=== PATIENT | male | born 1955 | race African-American/Black ===

== ENCOUNTER 2018-02-02 19:38 | Inpatient (IN) | payer OTHER, SELFPAY ==
[2018-02-02] MEDS ORDERED: Ondansetron PF 4 MG/2 ML Vial ONE (20:33)
[2018-02-02 20:49] LABS: Troponin I Less than 0.010 ng/mL (< 0.028)
[2018-02-02 20:53] LABS: CKMB 10.6 ng/mL (0-6.6)
[2018-02-02 20:58] LABS: #Basophils 0.1 thou/uL (0.0-0.2); #Eosinphils 0.1 thou/uL (0.0-0.7); #Lymphocytes 0.9 thou/uL (1.20-3.40); #Monocytes 0.6 thou/uL (0.11-0.59); #Neutrophils 9.9 thou/uL (1.40-6.50); %Basophils 0.4 % (0.0-1.0); %Eosinophils 0.8 % (0.0-10.0); %Lymphocytes 7.6 % (21.0-51.0); %Neutrophils 86.2 % (42.0-75.0); Hemoglobin 15.8 g/dL (14.0-18.0); Mean Corpuscular HGB CONC 33.1 g/dL (32.0-36.0); Mean Corpuscular Hemoglobin 33.6 pg (27.0-31.0); Mean Platelet Volume 7.4 fL (7.4-10.4); Platelet Count 260 thou/uL (130-400); RBC Distribution Width 11.7 % (11.5-14.5); Red Blood Cell (RBC) Count 4.69 mill/uL (4.70-6.10); White Blood Cell (WBC) Count 11.5 thou/uL (4.8-10.8)
--- NOTE | 2018-02-02 21:01 | CT ---
HEAD CT WITHOUT CONTRAST 02/02/18 HISTORY: Left sided hemiparesis, evaluate for stroke. TECHNIQUE: Axial CT imaging at 5 mm intervals from vertex through skull base without contrast. FINDINGS: There is prominent hypodensity throughout the right MCA territory with loss of beckford-white differentia tion consistent with a completed infarction of the right MCA territory. No associated hemorrhage. The re is right to left midline shift of 7 mm at the level of the septum pellucidum. There is an old infa rction involving the posterior inferior aspect of the left cerebellar hemisphere. There is polypoid mucosal thickening within the alveolar recess of the right maxillary sinus. Imaged paranasal sinuses/mastoid air cells otherwise unremarkable. No acute osseous abnormality. IMPRESSION: Large acute infarction of right MCA territory with right to left midline shift of [address] Sawyer made aware at 7:50 p.m., 02/02/18. Code CR POS: [facility]
[2018-02-02 21:05] LABS: INR-International Normal Ratio 1.4; PTT 28.8 SEC (22.9-36.1); Prothrombin Time 16.9 SEC (12.0-14.7)
--- NOTE | 2018-02-02 21:10 | RAD ---
PORTABLE SUPINE FRONTAL CHEST RADIOGRAPH: 02/02/18 COMPARISON: 07/06/13. HISTORY: Slurred speech and left sided weakness, acute infarction. FINDINGS: Supine imaging provided limiting assessment for pneumothorax and pleural fluid. Heart and mediastinal contours are stable. Lungs appear clear. IMPRESSION: No acute findings. POS: [facility]
[2018-02-02 21:15] LABS: CK (CPK) 2395 U/L (30-200); Lipase 4 U/L (8-78)
[2018-02-02 22:04] LABS: Albumin 3.8 g/dL (3.4-4.8); Bilirubin, Total 1.4 mg/dL (0.2-1.2); Carbon Dioxide 22 mmol/L (23-31); Chloride 104 mmol/L (98-107); Globulin 2.8 g/dL (2.4-3.5); Glucose 89 mg/dL (80-115); Potassium 4.8 mmol/L (3.5-5.1); Protein, Total 6.6 g/dL (5.8-8.1); Sodium 138 mmol/L (136-145)
[2018-02-02 22:05] LABS: ALT (SGPT) 29 U/L (8-55); AST (SGOT) 66 U/L (5-34); Acetaminophen Less than 6.0 mcg/mL (10.0-30.0); Alcohol Less than 10 mg/dL (Less than 10); Alkaline Phosphatase 72 U/L (40-150); BUN (Urea Nitrogen) 17 mg/dL (8.4-25.7); Calc. Creatinine Clearance 0 mL/min (70-130); Estimated GFR-MDRD 87; Salicylate Less than 8.0 mg/dL (15.0-30.0)
[2018-02-02 22:06] LABS: Anion Gap 17 mmol/L (10-20)
[2018-02-02] MEDS ORDERED: Promethazine HCl 25 MG/ML VIAL ONE (22:13)
[2018-02-02] MEDS ORDERED: Ondansetron ODT 4 MG TAB SL PRN (23:26)
[2018-02-02] MEDS ORDERED: Ondansetron PF 4 MG/2 ML Vial IVP PRN (23:26)
[2018-02-02] MEDS ORDERED: hydrALAZINE 20 MG/ML VIAL SLOW IVP PRN (23:29)
[2018-02-02] MEDS ORDERED: Bisacodyl 5 MG TAB PO PRN (23:29)
[2018-02-02] MEDS ORDERED: Senokot S 8.6-50 MG TAB PO PRN (23:29)
[2018-02-02] MEDS ORDERED: Labetalol HCl 100 MG/20 ML VIAL SLOW IVP PRN (23:29)
[2018-02-02] MEDS: Sodium Chloride 0.9% 1,000 ML IV SCH (23:49)
[2018-02-03 00:58] VITALS: BMI 27.6
--- NOTE | 2018-02-03 04:59 | HP ---
CHIEF COMPLAINT: Left-sided weakness. HISTORY OF PRESENT ILLNESS: This is a 62-year-old male with past medical history of hypertension and BPH, presenting with left-sided weakness and slurred speech. Per EMS, the patient was found on the ground in the prone position and the patient had left-sided weakness, slurred speech, and also complaining of associated symptoms of left temporal headache. The patient was then transported to our hospital facility to be further evaluated and treated. It is unknown the last time the patient was known well. At this point, the patient states that nothing really made his condition better and the patient denies any fever, chills, photophobia, chest pain, palpitations, shortness of breath, abdominal pain, diarrhea, constipation, hematuria, hematochezia, or melena, but endorses headaches, left-sided weakness, and slurred speech. REVIEW OF SYSTEMS: Positive for slurred speech, left-sided weakness. Otherwise as documented in the HPI. All other systems were reviewed and are negative. PAST MEDICAL HISTORY: Hypertension and BPH. FAMILY HISTORY: Reviewed and noncontributory to this visit. PAST SURGICAL HISTORY: Left knee repair. PSYCHIATRIC HISTORY: No psych history. SOCIAL HISTORY: The patient uses tobacco, smokes about one pack per day. The patient drinks occasionally. The patient denies illicit drug use. ALLERGIES: NO KNOWN DRUG ALLERGIES. CURRENT MEDICATIONS: The patient takes doxazosin 4 mg b.i.d. PHYSICAL EXAMINATION: VITAL SIGNS: The patient's blood pressure 144/91, pulse of 93, respiratory rate of 18, temperature of 98.2, O2 saturations of 99%. GENERAL APPEARANCE: The patient has a GCS score of 15. Lying in bed. Does not appear to be in any acute distress. HEENT: Normocephalic and atraumatic. Pupils are equal, round, and reactive to light. Extraocular movements are intact. No scleral icterus. Mucous membranes are dry. NECK: Trachea is midline. No JVD. Full range of motion. No meningeal signs. LUNGS: Clear to auscultation bilaterally. No wheezing, no rales, no rhonchi appreciated. CARDIAC: Positive S1 and S2. Regular rhythm with no murmurs, no gallops, no rubs appreciated. ABDOMEN: Soft, nontender, and nondistended. Positive bowel sounds in all quadrants. No peritoneal signs. EXTREMITIES: The patient has left-sided weakness at the upper extremity. There is no cyanosis, no tenderness. The patient has left-sided lower extremity weakness. Good pulses bilaterally. No edema noted. NEUROLOGIC: Cranial nerves 2 through 12 grossly intact. No neurologic deficits noted. SKIN: Warm, dry, and intact. IMAGING STUDIES: EKG that was done in the ED showed normal sinus rhythm with a rate of 88. CT scan of the head showed there is a prominent hypodensity throughout the right MCA territory with loss of beckford-white differentiation consistent with complete infarction of the right MCA territory. No associated hemorrhage. There is [id number] midline shift of 7 mm at the level of the septum pellucidum. There is an old infarction involving the posterior-inferior aspect of the left cerebellar hemisphere. There is polypoid mucosal thickening between the alveolar recess of the right maxillary sinus. LABORATORY DATA: WBC is 11.5, hemoglobin 15.8, hematocrit 47.6, MCV is 102.0, RDW is 7.7, platelet count is 260. PT 16.9, INR 1.4, PTT 28.8. Sodium 138, potassium 4.8, chloride 104, carbon dioxide 22, anion gap of 17, BUN 17, creatinine 1.05. AST 66, ALT 29, alk phos 72, creatine kinase 2385. Urine tox is negative. ASSESSMENT AND PLAN: This is a 62-year-old male, being admitted for left-sided weakness due to: 1. Cerebrovascular accident of the right middle cerebral artery territory with left midline shift of 7 mm. At this point, the patient will be admitted to the stroke unit. We are going to keep the patient on aspirin. We will give the patient atorvastatin. We will consult Neurology. We will order an echo of the heart. We will follow up on echo. We will follow up on morning labs. 2. Rhabdomyolysis. The patient's CPK is elevated to 2000s. We will give the patient IV hydration. We will follow up on CPK levels. 3. History of hypertension. We will monitor the patient's blood pressure closely and we will achieve patient's blood pressure accordingly. 4. Deep venous thrombosis and gastrointestinal prophylaxis. Job ID: [id number] MTDD
[2018-02-03 06:27] LABS: Hemoglobin 13.9 g/dL (14.0-18.0); Mean Corpuscular HGB CONC 33.4 g/dL (32.0-36.0); Mean Corpuscular Hemoglobin 34.2 pg (27.0-31.0); Mean Platelet Volume 7.7 fL (7.4-10.4); Platelet Count 245 thou/uL (130-400); RBC Distribution Width 11.9 % (11.5-14.5); Red Blood Cell (RBC) Count 4.07 mill/uL (4.70-6.10)
[2018-02-03 06:28] LABS: Band 1 % (5-11); Lymphocytes 15 % (21-51); MDiff Complete? YES; Monocytes 4 % (0-10); Neutrophil 79 % (42-75); PLT Morphology Comment Appears Adequate
[2018-02-03 06:33] LABS: Anion Gap 13 mmol/L (10-20); BUN (Urea Nitrogen) 15 mg/dL (8.4-25.7); Calc. Creatinine Clearance 91 mL/min (70-130); Calcium 8.7 mg/dL (7.8-10.44); Carbon Dioxide 20 mmol/L (23-31); Cardiac Risk 3.9 (Less than 4.5); Chloride 108 mmol/L (98-107); Cholesterol 148 mg/dl (< 200 Desired); Estimated GFR-MDRD 89; Glucose 89 mg/dL (80-115); HDL Cholesterol 38 mg/dL (>60 Neg Risk); LDL Cholesterol, Calculated 90 mg/dL; Potassium 4.3 mmol/L (3.5-5.1); Sodium 137 mmol/L (136-145); Triglycerides 98 mg/dL (Less than 150)
--- NOTE | 2018-02-03 08:13 | PRG ---
DATE OF SERVICE: 02/03/2018 I personally examined the patient, reviewed the documentation of Joy Gonzáles PA-C, dated 02/02/2018 and 02/03/2018. Briefly, Lincoln Medel is a 62-year-old gentleman, who tells me he had new neurological deficit in the last day or two. His family is not around to tell me when he was last normal. He was admitted when he was found down and had some dysarthria and left hand and body weakness. CT examination of the brain in our emergency department showed large MCA hypodensity on the right side of the brain. There is bit of midline shift, and Neurosurgery was consulted to ensure the swelling would not worsen and then he would have an opportunity to have a decompressive craniectomy should he need it. I examined Mr. Medel this morning. He is awake. He is answering questions. He has left-sided neglect. His left hemiparesis is quite dense. CT examination does show marked hypodensity in the MCA distribution. The stroke does not appear as though it happened within the last day or two. I suspect it is older than that. There is still some midline shift, which suggested subacute but not chronic. I do not believe Mr. Medel will warrant neurosurgical intervention. I think he is through the phase of swelling with his MCA infarct and the next steps in his care would be prevention of the next stroke and intensive rehabilitation to make him more independent for his activities of daily living. Neurosurgery Team will visit him while he is in the hospital from [id number] with the likelihood of needing neurosurgical intervention is extremely low. Job ID: [id number] MTDD
[2018-02-03] MEDS ORDERED: Enoxaparin Sodium 40 MG/0.4 ML SYRINGE SC SCH (09:00)
[2018-02-03] MEDS ORDERED: Aspirin 81 mg Enteric Coated Tablet PO SCH (09:00)
[2018-02-03] MEDS: Sodium Chloride 0.9% 1,000 ML IV SCH ×3 (09:48→22:04)
[2018-02-03] MEDS: Famotidine/PF 20 mg/2ml Vial SLOW IVP SCH ×2 (09:53→22:08)
[2018-02-03] MEDS: Famotidine 20 MG TAB PO SCH ×2 (09:53→22:07)
--- NOTE | 2018-02-03 14:47 | MRI ---
BRAIN MRI NONCONTRAST: Date: 02/03/18 CLINICAL HISTORY: Stroke. FINDINGS: There is evidence of a large right MCA distribution infarction which does result in sulcal effacement , mass effect, and mild midline shift. Motion artifact is present limiting detail. There is a chronic appearing infarction of the left cerebellar hemisphere. There is mild hemorrhagic deposition seen wi thin the region of large right MCA infarction. Punctate susceptibility seen at the anterior left fron peter lobe. There is a focus of restriction involving the right frontal lobe, within a watershed distri bution. IMPRESSION: 1. Large acute infarction of the right MCA distribution with hemorrhagic transformation present. The re is result in sulcal effacement, mass effect, and mild midline shift. 2. Chronic moderate sized left cerebellar hemispheric infarction. Findings discussed with hospital nurse, and telephone call will be placed to patient's physician, Sadaf Jacobson, at 1330 hours on 02/03/18. CODE CR. POS: [facility]
--- NOTE | 2018-02-03 14:51 | MRI ---
MRI BRAIN WITH CONTRAST: Date: 02/03/18 INDICATION: Cancer protocol brain MRI per ordering physician request. Reference main to preceding noncontrast brain MRI which was ordered as stroke protocol. FINDINGS: Reference the preceding noncontrast brain MRI for details regarding large acute right MCA distributio n infarction with hemorrhagic transformation. Postcontrast imaging reveals no evidence of a pathologi ramiro enhancing intra-axial mass. There is a relative hyperemia noted on the right related to patient 's infarction. Intracranial mass effect from the large region of cytotoxic edema is again noted with shift of midline, measuring 6.0 mm to the left, at level of septum pellucidum. Redemonstration of moderate size region of left cerebellar hemispheric cavitary encephalomalacia. IMPRESSION: Hyperemia related to patient's recent large right MCA distribution infarction with mass effect, and l eftward subfalcine herniation. Recommend continued followup with Head CT exam. POS: [facility]
--- NOTE | 2018-02-03 15:24 | CON ---
DATE OF CONSULTATION: TYPE OF CONSULTATION: Neurosurgical consult HISTORY OF PRESENT ILLNESS: Mr. Medel came to the emergency department yesterday for progressive left-sided weakness, slurred speech, and he was found down in his living room. The patient states that this had been progressively getting worse for the last 2 to 3 days. The patient, at that time, complained of weakness, slurred speech, and headache. Upon seeing him his hospital room, he is resting comfortably; however, he has complete left-sided neglect and will not move left upper or lower extremities. The patient does not complain of any pain or discomfort, and believes to be moving left upper or lower extremity, even with no motion. REVIEW OF SYSTEMS: No fever. No chills. No discharge from his eyes. Vision is intact. Hearing is intact. No sore throat. No chest pain. No shortness of breath. No diarrhea or constipation. No abdominal pain. No nausea or vomiting. Left-sided weakness and slurred speech. PAST MEDICAL HISTORY: Hypertension and prostate. PAST SURGICAL HISTORY: Left knee surgery many years ago. SOCIAL HISTORY: The patient currently uses tobacco, cigarette approximately a pack a day. Drinks socially. He denies any other drug use. ALLERGIES: NO KNOWN DRUG ALLERGIES. MEDICATIONS: Doxazosin 4 mg two times a day. PHYSICAL EXAMINATION: VITAL SIGNS: Blood pressure 118/83, temperature 98.5, heart rate 90, respirations 20, and O2 saturation 96% on nasal cannula. CONSTITUTIONAL: The patient's GCS is 15. Does not appear to be in any distress. Afebrile. Nontoxic. HEENT: Head is normocephalic and atraumatic. Pupils are equal, round, and reactive to light. Extraocular movements are intact. Vision is intact. Hearing is intact. Moist mucous membranes. RESPIRATIONS: Normal work of breathing on room air, no distress. CARDIOVASCULAR: Regular rate and rhythm. S1 and S2. Upper and lower extremities motor strength, right side, good strength 5/5, full range of motion, however, left side, the patient will not move. The patient cannot hold up left arm, even if I move for him. The patient states that he does not know when I am touching his arm. NEUROLOGIC: The patient is alert and oriented to person, place, and time. Normal fund of knowledge. Speech is spontaneous and fluent. He does have left-sided facial droop. The patient has some amount of left-sided facial droop giving slightly slurred speech. The patient has correct joint position on the right. Does not have any joint position on the left lower extremity. IMAGING DATA: CT of head imaging, there is a dense, large right-sided ischemic stroke with 6 to 7 mm of midline shift left to right. ASSESSMENT AND PLAN: Mr. Medel is a 62-year-old male with a large right-sided ischemic stroke with 6 to 7 mm of midline shift. The patient is being monitored with the Hospitalist Department and Neurology, Neurosurgery consulted based on significant midline shift. We will continue to appraise situation. If the patient's neurologic status deteriorates or imaging indicates worsening swelling, we should be notified. The likelihood of need for a decompressive craniotomy is low. Contact neurosurgery if there is any change in status. Job ID: [id number] MTDD
--- NOTE | 2018-02-03 15:26 | RAD ---
MODIFIED BARIUM SWALLOW [facility] SPEECH THERAPIST: Date: 02/03/18 HISTORY: 62-year-old male with history of dysphagia following cerebral infarction. Fluoroscopy time: 2.7 minutes. Dose: 6.67 mGy*cm^2. IMPRESSION: Patient was given multiple consistencies and evaluated in the upright and lateral position. Patient h ad multiple episodes of penetration with thin liquids and considerable pooling in the vallecula and d elayed swallowing reflux. Please see speech therapy report for additional findings and recommendations. POS: [facility]
--- NOTE | 2018-02-03 16:12 | PDOC.PN ---
- Subjective Encounter Start Date: 02/03/18 Encounter Start Time: 16:00 Subjective: f/u for R MCA terrritorial ischemic CVA converting to hemorrhagic by -: MRI imaging. Apparently found down after 48hrs per family. Received -: ASA in ED. - Objective Resuscitation Status - Order Detail: 02/02/18 23:29 Resuscitation Status Routine Resuscitation Status: FULL: Full Resuscitation Vital Signs & Weight: Vital Signs (12 hours) Temp Pulse Pulse Pulse Resp BP BP 02/03/18 15:50 98.7 F 73 16 02/03/18 14:50 73 114/85 02/03/18 11:52 98.1 F 80 16 02/03/18 09:30 81 76 131/80 143/85 H 02/03/18 07:29 98.5 F 90 20 BP Pulse Ox 02/03/18 15:50 146/94 H 95 02/03/18 14:50 02/03/18 11:52 134/81 95 02/03/18 09:30 02/03/18 07:29 118/83 96 Weight Admit Weight 187 lb 6.287 oz Weight 187 lb 6.287 oz Result Diagrams: 02/03/18 06:02 02/03/18 06:02 Radiology Reviewed by me: Yes (MRI brain - +hemorrhagic conversion of R MCA infarct with edema and shift) EKG Reviewed by me: Yes (Tele SR) Phys Exam - Physical Examination Constitutional: NAD responsive to questions HEENT: PERRLA, sclera anicteric, oral pharynx no lesions Neck: no nodes, no JVD, supple, full ROM Respiratory: no wheezing, no rales, no rhonchi, clear to auscultation bilateral S1, S2 Cardiovascular: RRR, no significant murmur, no rub, gallop Gastrointestinal: soft, non-tender, no distention, positive bowel sounds Musculoskeletal: no edema, pulses present L hemiparesis, not observed ambulatory during this exam Neurological: normal sensation Skin: normal turgor, cap refill <2 seconds Dx/Plan (1) Cerebrovascular accident (CVA) with intracranial hemorrhage Code(s): I61.9 - NONTRAUMATIC INTRACEREBRAL HEMORRHAGE, UNSPECIFIED Status: Acute Comment: Ischemic initially now hemorrhagic conversion, no anticoagulation, hold ASA and Lovenox, Neurosurgery aware of situation (2) Left hemiparesis Code(s): G81.94 - HEMIPLEGIA, UNSPECIFIED AFFECTING LEFT NONDOMINANT SIDE Status: Acute Comment: Secondary to #1, general stroke protocol, PT/OT (3) Dysphagia Code(s): R13.10 - DYSPHAGIA, UNSPECIFIED Status: Acute Qualifiers: Dysphagia type: oropharyngeal phase Qualified Code(s): R13.12 - Dysphagia, oropharyngeal phase Comment: MBS completed, [facility] soft diet recommended (4) HTN (hypertension) Code(s): I10 - ESSENTIAL (PRIMARY) HYPERTENSION Status: Chronic Qualifiers: Hypertension type: essential hypertension Qualified Code(s): I10 - Essential (primary) hypertension Comment: Stable currently, serial monitoring (5) Rhabdomyolysis Code(s): M62.82 - RHABDOMYOLYSIS Status: Acute Comment: Likely due to prolonged down time, continue IVF's and monitor serial CPK (6) Tobacco abuse Code(s): Z72.0 - TOBACCO USE Status: Chronic Comment: Cessation resources, consider Nicotine patch - Plan plan discussed w/ family, PT/OT, social science teacher, speech therapy, DVT proph w/ SCDs Continue close monitoring on stroke unit -: Avoid ASA, anticoagulation -: Decrease IVF's 75ml/h -: Neurosurgery following clinically -: CT brain in am * AM lab: BMP, CBC, CPK * Add Ativan prn ETOH withdrawal sx * Add Banana bag daily * Check Carotid doppler
[2018-02-03] MEDS ORDERED: Lorazepam 2 MG/ML VIAL SLOW IVP PRN (16:27)
[2018-02-03] MEDS: Multivitamins, Adult 10 ML, Folic Acid 1 MG, Thiamine HCl 100 MG in Dextrose 5 %-0.45 %... IV SCH (17:28)
--- NOTE | 2018-02-03 20:27 | ULT ---
CAROTID ARTERIAL DOPPLER ULTRASOUND: 02/03/18 COMPARISON: None. HISTORY: CVA. TECHNIQUE: Multiplanar beckford scale sonographic imaging of arterial structures of the neck obtained with color hayley w and spectral analysis. FINDINGS: Antegrade blood flow and normal arterial waveforms documented within the carotid and the vertebral sy stem bilaterally. VESSEL PSV (cm/s) EDV (cm/s) Right CCA 75 18 Right ICA 31 13 Right ECA 27 5 Left CCA 103 18 Left ICA 47 17 Left ECA 55 16 ICA/CCA ratio is 0.4 on the right and 0.5 on the left. IMPRESSION: No hemodynamically significant stenosis on the basis of sonographic velocity criteria. POS: [facility]
[2018-02-03] MEDS ORDERED: Atorvastatin Calcium 40 MG TAB PO SCH (21:00)
[2018-02-03] MEDS: Acetaminophen 325 MG TAB PO PRN (22:04)
--- NOTE | 2018-02-04 01:42 | CON ---
DATE OF CONSULTATION: 02/03/2018 CONSULTING PHYSICIAN: Hospitalist Services. IMPRESSION: 1. Acute right MCA stroke resulting in left hemiparesis and neglect. 2. Silent left cerebellar stroke. 3. Tobacco use. 4. BPH. 5. Chronic back pain. PLAN: 1. Carotid ultrasound. 2. Echocardiogram. 3. Antiplatelet therapy and a statin. 4. Possible rehab transfer. HISTORY OF PRESENT ILLNESS: Mr. Medel is a 62-year-old man, who came in with acute onset of left-sided weakness. At the time he arrived, he already showed evidence of ischemic injury on a CT scan. Followup MRI of the brain shows a similar area involving the right middle cerebellar artery territory with slight mass effect. He has not seen any significant improvement in his deficits at this point. There is no past history of TIA, cardiac disease, cancer, hypertension, or diabetes. PAST MEDICAL HISTORY: As listed above. ALLERGIES: NONE REPORTED. SOCIAL HISTORY: Positive for tobacco. FAMILY HISTORY: Noncontributory. REVIEW OF SYSTEMS: No other particular complaints. PHYSICAL EXAMINATION: VITAL SIGNS: EKG shows a sinus rhythm with a rate of 65, respirations 16. HEENT: Pupils are equal. Conjunctivae clear. Oropharynx clear. Normocephalic and atraumatic. NECK: Supple. EXTREMITIES: No cyanosis. NEUROLOGIC: He was alert and cooperative. His speech was mildly dysarthric. There is a left facial droop present. There is some dense paralysis of the left arm and leg. He had sensory dysfunction and neglect of left side. No abnormal movements were seen. Plantar responses upgoing on the left and downgoing on the right. Gait is not testable. Imaging was reviewed. SUMMARY: This is an unfortunate middle-aged gentleman, who suffered fairly massive stroke. The degree of neglect will cause difficulty in rehab. We will complete his workup and move in that direction. Job ID: [id number]
[2018-02-04 05:46] LABS: Anion Gap 7 mmol/L (10-20); BUN (Urea Nitrogen) 8 mg/dL (8.4-25.7); CK (CPK) 814 U/L (30-200); Calc. Creatinine Clearance 96 mL/min (70-130); Calcium 8.6 mg/dL (7.8-10.44); Carbon Dioxide 28 mmol/L (23-31); Chloride 107 mmol/L (98-107); Estimated GFR-MDRD Greater than 90; Glucose 104 mg/dL (80-115); Potassium 3.5 mmol/L (3.5-5.1); Sodium 138 mmol/L (136-145)
[2018-02-04 06:04] LABS: Hemoglobin 13.1 g/dL (14.0-18.0); Hypochromia SLIGHT = 6-15 cells (100X) (0-5/hpf); Lymphocytes 20 % (21-51); MDiff Complete? YES; Mean Corpuscular HGB CONC 33.6 g/dL (32.0-36.0); Mean Corpuscular Hemoglobin 34.1 pg (27.0-31.0); Mean Platelet Volume 7.3 fL (7.4-10.4); Monocytes 1 % (0-10); Neutrophil 79 % (42-75); PLT Morphology Comment Appears Adequate; Platelet Count 213 thou/uL (130-400); RBC Distribution Width 11.5 % (11.5-14.5); Red Blood Cell (RBC) Count 3.85 mill/uL (4.70-6.10); White Blood Cell (WBC) Count 5.5 thou/uL (4.8-10.8)
[2018-02-04] MEDS: Sodium Chloride 0.9% 1,000 ML IV SCH (07:59)
--- NOTE | 2018-02-04 08:15 | PRG ---
DATE OF SERVICE: 02/04/2018 SUBJECTIVE: I have seen Mr. Medel in the hospital room this morning. He had MRI imaging yesterday. There is a large right MCA infarct. There is no enhancing mass. There is a tiny bit of hemorrhage around the Sylvian fissure in the area of stroke with no mass effect and it is small amount. Mr. Medel is seen this morning. His vitals are stable. He is arousable. He opens his eyes. He neglects the left side, so I stand on the right side to talk to him. He answers questions. He tells me he cannot remember the last day he felt normal. He does remember being in town for . He remembers the weekend, but this week has been a bit of blur. He is not sure when his neurologic decline happened. He still has a fairly significant left hemiparesis and left neglect, which has not changed since yesterday. I [id number] of normal saline are running currently. My plan for today is to limit his fluid intake. Mr. Medel, by report, has difficulty with alcohol abuse. I like to make sure he does not go into SIADH and develop significant hyponatremia. This could exacerbate any brain swelling. I suspect the stroke is old enough that was passing normal stage of peak swelling after stroke, but as he developed some electrolyte disturbance resulting in hyponatremia, this could continue to be a problem. I suggest limiting his fluid intake if his electrolyte markers, suggestive of rhabdomyolysis, have returned to normal and his creatinine is normal. As long as he continues to wake up and answer questions, I do not think we are going to need to consider any decompressive surgery. Our team will continue to follow while he is in the hospital. Job ID: [id number] MTDD
[2018-02-04] MEDS: Famotidine 20 MG TAB PO SCH ×2 (08:23→21:45)
[2018-02-04 08:44] LABS: Folate (Folic Acid) 49.1 ng/mL (7.0-31.4)
[2018-02-04] MEDS: Famotidine/PF 20 mg/2ml Vial SLOW IVP SCH (09:00)
--- NOTE | 2018-02-04 10:19 | CT ---
CT BRAIN WITHOUT CONTRAST: Date: 02/04/18 HISTORY: Right MCA infarction, CVA with hemorrhage. FINDINGS: Comparison made with CT scan of 02/02/18 and MRI of previous day. The large acute right-sided MCA infarction is again seen. There has been interval worsening of the mi dline shift/subfalcine herniation since the CT of 02/02/18, currently measuring about 1.0 cm. The hem orrhage noted on the gradient echo sequences of the MRI is not visualized on the CT scan. An old left cerebellar infarction is again seen. IMPRESSION: Large right MCA infarction with interval worsening of subfalcine herniation since 02/02/18. Report called over the phone to the patient's nurse, Shon Hugo RN, at 0856 hours. CODE CR. POS: [facility]
[2018-02-04] MEDS: Acetaminophen 325 MG TAB PO PRN (14:15)
[2018-02-04] MEDS ORDERED: Acetaminophen 650 MG Suppository PR PRN (15:11)
[2018-02-04] MEDS ORDERED: Labetalol HCl 100 MG/20 ML VIAL SLOW IVP PRN (15:27)
[2018-02-04] MEDS ORDERED: manNITOL 20% 250 ML IVPB SCH ×2 (15:30→16:00)
[2018-02-04] MEDS ORDERED: IN MANNITOL FS SCH (16:00)
[2018-02-04] MEDS ORDERED: ADMIXTURE FEE FS SCH (16:00)
--- NOTE | 2018-02-04 16:18 | PDOC.PN ---
- Subjective Encounter Start Date: 02/04/18 Encounter Start Time: 15:00 Patient seen and examined for Acute CVA. No new focal deficits/seizure/BILLS. No other complaints. No overnight events - Objective Resuscitation Status - Order Detail: 02/02/18 23:29 Resuscitation Status Routine Resuscitation Status: FULL: Full Resuscitation MAR Reviewed: Yes Vital Signs & Weight: Vital Signs (12 hours) Temp Pulse Resp BP BP Pulse Ox 02/04/18 15:38 99.3 F 123 H 20 184/99 H 98 02/04/18 11:44 98.5 F 81 16 144/85 H 97 02/04/18 11:01 68 167/88 H 02/04/18 08:00 98.5 F 73 20 133/86 97 Weight Admit Weight 187 lb 6.287 oz Weight 187 lb 6.287 oz I&O: 02/03/18 02/04/18 02/05/18 06:59 06:59 06:59 Intake Total 1305 Balance 1305 Result Diagrams: 02/04/18 05:10 02/04/18 05:10 Additional Labs: Accuchecks 02/02/18 19:57 POC Glucose 155 H EKG Reviewed by me: Yes (Tele SR) Phys Exam - Physical Examination Constitutional: NAD Respiratory: no wheezing, no rhonchi Cardiovascular: RRR, no rub Gastrointestinal: soft, non-tender, positive bowel sounds Musculoskeletal: no edema Neurological: moves all 4 limbs Dx/Plan - Plan DVT proph w/SCDs 1. 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 HTN 3. BPH 4. Acute Rhabdomyolysis PLAN: DC IVF Resume Doxazosin at 4 mg daily Start Mannitol due to midline shift Neurosurgery following Start Keppra for seizure prophylaxis AM labs Review of Systems - Review of Systems Respiratory: negative: Cough, Dry, Shortness of Breath, Hemoptysis, SOB with Excertion, Pleuritic Pain, Sputum, Wheezing Cardiovascular: negative: chest pain, palpitations, orthopnea, paroxysmal nocturnal dyspnea, edema, light headedness, other - Medications/Allergies Allergies/Adverse Reactions: Allergies Allergy/AdvReac Type Severity Reaction Status Date / Time No Known Allergies Allergy Verified 02/03/18 00:55 Medications: Current Medications Acetaminophen (Tylenol) 650 mg PO Q4H PRN PRN Reason: Headache/Fever/Mild Pain (1-3) Last Admin: 02/04/18 14:15 Dose: 650 mg Acetaminophen (Tylenol) 650 mg [place] Q4H PRN PRN Reason: Headache/Fever or Pain Atorvastatin Calcium (Lipitor) 80 mg PO HS [facility] Last Admin: 02/03/18 22:07 Dose: 80 mg Bisacodyl (Dulcolax) 10 mg PO DAILYPRN PRN PRN Reason: Constipation Carvedilol (Coreg) 6.25 mg PO BID-[facility] Doxazosin Mesylate (Cardura) 4 mg PO HS [facility] Famotidine (Pepcid) 20 mg SLOW IVP Q12HR [facility] Last Admin: 02/04/18 09:00 Dose: 20 mg Famotidine (Pepcid) 20 mg PO BID [facility] Last Admin: 02/04/18 08:23 Dose: Not Given Multivitamins 10 ml/ Folic Acid 1 mg/ Thiamine HCl 100 mg / Dextrose/Sodium Chloride 1,011.2 mls @ 75 mls/hr IV Q24HR [facility] Last Admin: 02/03/18 17:28 Dose: 1,011.2 mls Levetiracetam 500 mg/ Device 100 mls @ 200 mls/hr IVPB BID [facility] Miscellaneous Medication 1 (each/ Mannitol) 250 mls @ 166.667 mls/hr FS Q8H [facility] Stop: 02/05/18 09:29 Labetalol HCl (Normodyne) 10 mg SLOW IVP Q1H PRN PRN Reason: Systolic BP > 160 Levetiracetam (Keppra) 500 mg PO BID [facility] Lorazepam (Ativan) 1 mg SLOW IVP Q4H PRN PRN Reason: Anxiety/Agitation Senna/Docusate Sodium (Senokot S) 2 tab PO BID PRN PRN Reason: Constipation Sodium Chloride (Flush - Normal Saline) 10 ml IVF Q12HR [facility] Last Admin: 02/04/18 09:00 Dose: Not Given Sodium Chloride (Flush - Normal Saline) 10 ml IVF PRN PRN PRN Reason: Saline Flush
[2018-02-04] MEDS ORDERED: Doxazosin Mesylate 4 MG TAB PO SCH ×3 (17:30→21:00)
[2018-02-04] MEDS: Carvedilol 6.25 MG TAB PO SCH (17:41)
[2018-02-04] MEDS: Multivitamins, Adult 10 ML, Folic Acid 1 MG, Thiamine HCl 100 MG in Dextrose 5 %-0.45 %... IV SCH (17:42)
[2018-02-04] MEDS ORDERED: [UNRECOGNIZED DRUG - REMARK] FS SCH (18:45)
[2018-02-04] MEDS: Atorvastatin Calcium 10 MG TAB PO SCH (21:45)
[2018-02-04] MEDS: levETIRAcetam 500 MG TAB PO SCH (21:45)
[2018-02-04] MEDS: Benzonatate 100 MG CAP PO SCH (21:45)
--- NOTE | 2018-02-04 22:11 | PRG ---
DATE OF SERVICE: 02/04/2018 TYPE OF REPORT: Followup Neurology Note SUBJECTIVE: The patient's ex- is in the room. The patient and his ex- note that he has had a recent upper respiratory infection, and when he coughs, the right side of his head hurts a lot, and also he has been straining to try to pee because he has enlarged prostate, and when he strains, his head also hurts. He is noted to hang the left side of his body out of the bed. He is not quite aware that he has been doing that. The left side is definitely weaker than the right side, and he is aware that the right side is weaker. He is noted to not look to the left very well. OBJECTIVE: GENERAL: He is awake and alert. He knows where he is. His speech is slightly dysarthric. HEENT: Pupils are 2 mm and reactive to light bilaterally. He has a left visual neglect, and he has diminished eye movements to the left. 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 His tongue protrudes in the midline. Motor, the right side has 5/5 strength of the arm and leg. The left arm and left leg are 3/5. The DTRs are brisk throughout, 3+. The toes are upgoing bilaterally. VITAL SIGNS: Show a blood pressure of 167/88, pulse is 123, O2 sat 98%, respiratory rate 20, temperature is 99.3. LUNGS: Clear. HEART: No murmurs or gallops. He is tachycardic as mentioned. His pulse is regular, but tachycardic. His states that he seemed to be okay on Wednesday evening because she did talk to him, and then he was found on Wednesday very poorly responsive at home and could not walk, so this would be day 3 after he was found down. EXTREMITIES: No clubbing, cyanosis, or edema. ABDOMEN: No distention. MEDICATIONS: I note that he has recently been started on Keppra 500 mg b.i.d., also he is on multivitamins and thiamine. He has been started on 3 doses of Mannitol 50 g q.8 hours. Since he has been coughing, he has been started on benzonatate 100 mg q.8 hours due to the cough. Note that when he has been coughing, he gets a severe headache on the right side. Review of test results show, CT of the head done on 02/02/2018 showed large right middle cerebral artery territory with a right to left midline shift of 7 mm. There was also an old infarction in the posterior inferior aspect of the left cerebellar hemisphere. It is not known if he has ever had atrial fibrillation or not, but he has had an irregular rhythm in the past according to the patient's . He has not been on blood thinners as far as they know. An echocardiogram was read as showing ejection fraction at 60% to 65%, mitral annular calcification was present. There was some aortic valve sclerosis, but opening well. There were no regional wall abnormalities. There was another CAT scan of the brain done on 02/04/2018. This showed again the large right middle cerebral artery infarction. There was interval worsening of the midline shift since the CT of 02/02/2018, currently measuring about 1 cm. There was a tiny amount of hemorrhage that was seen over the MRI of the brain. Carotid Doppler did not show any significant stenosis of the carotids or the vertebrals. IMPRESSION: Status post large right middle cerebral artery infarction with some edema and shift. The cause is not known, maybe he has occult atrial fibrillation, which is not being seen now. Note that there is an old cerebellar infarction too, which makes one surmise that possibly he does have underlying atrial fibrillation. Note that the carotid Doppler and the echo did not reveal a cause of this large infarction. I am concerned about the increase in the midline shift. PLAN: I agree with the prophylactic Keppra and the Mannitol. We will also order a followup CT of the head, I do not see that this has been ordered, and also we will get an osmolalities done, and hold the Mannitol if the osmolality is greater than 315. I discussed with the patient's nurse and the patient and with the neurosurgeon's physician assistant manager trainee. Also, since he has been coughing, we will order benzonatate local anesthetic for the stretch receptors of the lungs to diminish his coughing and diminish subsequent elevations in intracranial pressure. Also, his medications for his prostate enlargement have been ordered. Job ID: [id number]
[2018-02-04] MEDS: ADMIXTURE FEE FS SCH (22:57)
[2018-02-04] MEDS: IN MANNITOL FS SCH (22:57)
[2018-02-05] MEDS: ADMIXTURE FEE FS SCH ×3 (01:55→17:30)
[2018-02-05] MEDS: IN MANNITOL FS SCH ×3 (01:55→17:30)
[2018-02-05 02:04] LABS: Anion Gap 6 mmol/L (10-20); BUN (Urea Nitrogen) 6 mg/dL (8.4-25.7); Calc. Creatinine Clearance 107 mL/min (70-130); Calcium 8.8 mg/dL (7.8-10.44); Carbon Dioxide 30 mmol/L (23-31); Chloride 105 mmol/L (98-107); Estimated GFR-MDRD Greater than 90; Glucose 118 mg/dL (80-115); Magnesium 1.9 mg/dL (1.6-2.6); Potassium 3.4 mmol/L (3.5-5.1); Sodium 138 mmol/L (136-145)
--- NOTE | 2018-02-05 09:33 | CT ---
PRELIMINARY REPORT/[facility]/EMERGENTY AFTER-HOURS PROCEDURE CT Head Without Intravenous Contrast EXAM DATE/TIME: 02/05/2018 4:49 AM CLINICAL HISTORY: 62 years old, male; Condition or disease; Other: CVA; Patient HX: F/u acute CVA with midline shift TECHNIQUE: Axial computed tomography images of the head/brain without intravenous contrast. COMPARISON: CT Brain WO Con 02/04/2018 8:33 AM FINDINGS: Brain: No acute intracranial hemorrhage. Large apparent subacute infarct again seen involving the rig ht middle cerebral artery distribution, not significantly changed in appearance. There is again prominent associated mass effect and [id number] t midline shift. The amount of midline shift is not significantly changed, measuring about 10 mm. Old infarct again seen involving the left cerebellum, unchanged. Ventricles: Ventricle size is unchanged, no hydrocephalus. Bones/joints: No definite acute skull fracture. Sinuses: Included paranasal sinuses are essentially clear. Mastoid air cells: No significant acute finding. IMPRESSION: 1. Large apparent subacute infarct again seen involving the right middle cerebral artery distribution . 2. As before, prominent associated mass effect and [id number] midline shift. The amount of midline shift is not significantly changed, measuring about 10 mm. 3. No acute intracranial hemorrhage. 4. Other findings discussed above. Thank you for allowing us to participate in the care of your patient. Dictated and Authenticated by: Luís Calles MD 02/05/2018 6:00 AM Central Time ([place] & [place]) FINAL REPORT EMERGENCY AFTER HOURS CT BRAIN: Date: 02/05/18 FINDINGS/IMPRESSION: I agree with the preliminary report provided by [facility]. There is a large subacute right MCA distribution infarct with associated vasogenic edema causing righ t to left midline shift of 10.0 cm. This is roughly stable to the comparison performed earlier on at 0835 hours. Remote infarct involving the left cerebellar hemisphere is similar appearing. No hydrocephalus is evident. No definite acute intracranial hemorrhage is noted. POS: ARNULFO
[2018-02-05] MEDS: Carvedilol 6.25 MG TAB PO SCH ×2 (09:38→16:03)
[2018-02-05] MEDS: levETIRAcetam 500 MG TAB PO SCH (09:38)
[2018-02-05] MEDS: Famotidine 20 MG TAB PO SCH ×2 (09:38→20:44)
[2018-02-05] MEDS: Benzonatate 100 MG CAP PO SCH ×3 (09:38→20:42)
[2018-02-05] MEDS: Dextrose 5 % And 0.9 % NaCl 1,000 ML IV SCH (11:26)
--- NOTE | 2018-02-05 12:48 | PDOC.PN ---
- Subjective Encounter Start Date: 02/05/18 Encounter Start Time: 09:00 Patient seen and examined for Acute CVA. No new focal deficits. No new complaints. No overnight events - Objective Resuscitation Status - Order Detail: 02/02/18 23:29 Resuscitation Status Routine Resuscitation Status: FULL: Full Resuscitation MAR Reviewed: Yes Vital Signs & Weight: Vital Signs (12 hours) Temp Pulse Resp BP BP Pulse Ox 02/05/18 11:56 98 F 71 16 130/89 100 02/05/18 09:38 107/81 02/05/18 08:32 98.9 F 78 18 108/81 94 L 02/05/18 04:00 98.5 F 86 19 148/89 H 98 Weight Admit Weight 187 lb 6.287 oz Weight 187 lb 6.287 oz I&O: 02/04/18 02/05/18 02/06/18 06:59 06:59 06:59 Intake Total 1455 390 Output Total 1101 Balance 354 390 Result Diagrams: 02/04/18 05:10 02/05/18 01:15 Radiology Reviewed by me: Yes (CT brain - no new changes) EKG Reviewed by me: Yes (Tele SR) Phys Exam - Physical Examination Constitutional: NAD Respiratory: no wheezing, no rales, no rhonchi, clear to auscultation bilateral Cardiovascular: RRR, no rub no heaves/pulsations Gastrointestinal: soft, non-tender, no distention, positive bowel sounds Musculoskeletal: no edema, pulses present Psychiatric: normal affect, A&O x 3 Deviation from normal: Neuro - no new exam findings Dx/Plan - Plan DVT proph w/SCDs 1. 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 HTN 3. BPH 4. Acute Rhabdomyolysis 5. Hypokalemia PLAN: Cont Mannitol due to midline shift - I confirmed with Neurosurgery. Serum Osmolarity BID Replace Potassium Neurosurgery following Cont Keppra for seizure prophylaxis AM labs Cont current meds as below Not on antiplatelet agent and Lovenox due to ?hemorrhagic conversion Laboratory Tests 02/04/18 05:10 Creatine Kinase 814 H Review of Systems - Review of Systems Respiratory: negative: Cough, Dry, Shortness of Breath, Hemoptysis, SOB with Excertion, Pleuritic Pain, Sputum, Wheezing Cardiovascular: negative: chest pain, palpitations, orthopnea, paroxysmal nocturnal dyspnea, edema, light headedness, other - Medications/Allergies Allergies/Adverse Reactions: Allergies Allergy/AdvReac Type Severity Reaction Status Date / Time No Known Allergies Allergy Verified 02/03/18 00:55 Medications: Current Medications Acetaminophen (Tylenol) 650 mg PO Q4H PRN PRN Reason: Headache/Fever/Mild Pain (1-3) Last Admin: 02/04/18 14:15 Dose: 650 mg Acetaminophen (Tylenol) 650 mg [place] Q4H PRN PRN Reason: Headache/Fever or Pain Atorvastatin Calcium (Lipitor) 10 mg PO HS [facility] Last Admin: 02/04/18 21:45 Dose: 10 mg Benzonatate (Tessalon) 100 mg PO TID [facility] Last Admin: 02/05/18 09:38 Dose: 100 mg Bisacodyl (Dulcolax) 10 mg PO DAILYPRN PRN PRN Reason: Constipation Carvedilol (Coreg) 6.25 mg PO BID-[facility] Last Admin: 02/05/18 09:38 Dose: Not Given Doxazosin Mesylate (Cardura) 4 mg PO [facility] Famotidine (Pepcid) 20 mg PO BID [facility] Last Admin: 02/05/18 09:38 Dose: 20 mg Folic Acid (Folvite) 1 mg PO DAILY [facility] Levetiracetam 500 mg/ Device 100 mls @ 200 mls/hr IVPB BID [facility] Last Admin: 02/05/18 09:39 Dose: Not Given Miscellaneous Medication 1 (each/ Mannitol) 250 mls @ 166.667 mls/hr FS Q8H [facility] Last Admin: 02/05/18 11:58 Dose: 250 mls Dextrose/Sodium Chloride (D5 0.9% Ns) 1,000 mls @ 50 mls/hr IV .Q20H [facility] Last Admin: 02/05/18 11:26 Dose: 1,000 mls Labetalol HCl (Normodyne) 10 mg SLOW IVP Q1H PRN PRN Reason: Systolic BP > 160 Levetiracetam (Keppra) 500 mg PO BID [facility] Last Admin: 02/05/18 09:38 Dose: 500 mg Lorazepam (Ativan) 1 mg SLOW IVP Q4H PRN PRN Reason: Anxiety/Agitation Multivitamins (Theragran) 1 tab PO DAILY [facility] Hold Mannitol If Serum Osmolality > 315 1 each FS PRN [facility] Senna/Docusate Sodium (Senokot S) 2 tab PO BID PRN PRN Reason: Constipation Sodium Chloride (Flush - Normal Saline) 10 ml IVF Q12HR [facility] Last Admin: 02/05/18 09:39 Dose: Not Given Sodium Chloride (Flush - Normal Saline) 10 ml IVF PRN PRN PRN Reason: Saline Flush Thiamine HCl (Thiamine) 100 mg PO DAILY [facility]
[2018-02-05] MEDS ORDERED: manNITOL 20% 250 ML IVPB SCH (18:00)
--- NOTE | 2018-02-05 18:54 | PRG ---
DATE OF SERVICE: 02/05/2018 TYPE OF REPORT: Neurology followup CHIEF COMPLAINT: Neurology followup for CVA. HISTORY OF PRESENT ILLNESS: The patient states that his headache is less today. The Tessalon Perles has helped his cough and he is not coughing as much. He also has a Garner catheter and is making good urine. He is still on the mannitol, which has been instigated at 50 g every 8 hours and osmolalities are being checked. The patient states that his left side is very weak and he denies any trouble swelling. He states that he had some delicious spaghetti for a lunch, which he swallowed okay. PHYSICAL EXAMINATION: VITAL SIGNS: On exam, blood pressure is 121/78, pulse is 70, temperature 98.2, O2 saturation is 99%, and respiratory rate is 18. HEENT: Negative. NEUROLOGIC: Cranial nerves II through XII showed there is a left central 7 palsy. Motor of the arms and legs; the right side is 5/5 strength, the left side is 0/5 strength. The sensation is intact on the right, it is diminished to light touch and temperature over the left side of body. DTRs are 2+. Toes are equivocal. LUNGS: Clear. HEART: No gallops. EXTREMITIES: No edema. SKIN: No rashes. REVIEW OF RECORDS: A CAT scan report from today on 02/05/2018 showed that there is still significant shift about 10 mm from right to left about the same as yesterday. There is no significant hemorrhage. There is also an old infarct in the left cerebellar hemisphere, which is unchanged from the previous CAT scan. LABORATORY DATA: Labs show there is a white count of 5.5, hemoglobin 13.1, hematocrit 39.1. IMPRESSION: Status post a large right hemispheric infarct either consider possibility of a cardiac source; however, echo was negative and telemetry does not show any atrial fibrillation and he has significant swelling from his infraction. PLAN: Discussed test result with the patient. Recommended physical, occupational, and speech therapy. He may need to eventually have some rehab. Also, will get a followup CAT scan of brain on Wednesday which will be February 07, 2018. Job ID: [id number]
--- NOTE | 2018-02-05 20:20 | EKG ---
Test Reason : Blood Pressure : / mmHG Vent. Rate : 088 BPM Atrial Rate : 088 BPM P-R Int : 164 ms QRS Dur : 084 ms QT Int : 356 ms P-R-T Axes : 079 077 071 degrees QTc Int : 430 ms Normal sinus rhythm with sinus arrhythmia Possible Left atrial enlargement Borderline ECG Confirmed by YONATAN ALONSO, PARISH ([id number]), video editor TAI MAYEN ([id number]) on 02/05/2018 8:20:11 PM Referred By: Confirmed By:PARISH TAM MD
[2018-02-05] MEDS: Doxazosin Mesylate 4 MG TAB PO SCH (20:42)
[2018-02-05] MEDS: Atorvastatin Calcium 10 MG TAB PO SCH (20:44)
[2018-02-06] MEDS: levETIRAcetam 500 MG TAB PO SCH ×3 (03:36→22:01)
[2018-02-06] MEDS: ADMIXTURE FEE FS SCH ×3 (04:12→17:47)
[2018-02-06] MEDS: IN MANNITOL FS SCH ×3 (04:12→17:47)
[2018-02-06 05:14] LABS: Anion Gap 8 mmol/L (10-20); BUN (Urea Nitrogen) 5 mg/dL (8.4-25.7); Calc. Creatinine Clearance 111 mL/min (70-130); Calcium 8.8 mg/dL (7.8-10.44); Carbon Dioxide 28 mmol/L (23-31); Chloride 105 mmol/L (98-107); Estimated GFR-MDRD Greater than 90; Glucose 106 mg/dL (80-115); Magnesium 1.9 mg/dL (1.6-2.6); Potassium 3.5 mmol/L (3.5-5.1); Sodium 137 mmol/L (136-145)
[2018-02-06] MEDS: Dextrose 5 % And 0.9 % NaCl 1,000 ML IV SCH ×2 (06:44→15:56)
[2018-02-06] MEDS: Benzonatate 100 MG CAP PO SCH ×3 (08:42→21:59)
[2018-02-06] MEDS: Multivit, Therapeutic 1 TAB PO SCH (08:42)
[2018-02-06] MEDS: Famotidine 20 MG TAB PO SCH ×2 (08:43→21:59)
[2018-02-06] MEDS: Carvedilol 6.25 MG TAB PO SCH ×2 (08:43→16:49)
[2018-02-06] MEDS: Folic Acid 1 MG TAB PO SCH (08:44)
[2018-02-06] MEDS ORDERED: Multivit, Therapeutic 1 TAB PO SCH (09:00)
--- NOTE | 2018-02-06 15:35 | PDOC.PN ---
- Subjective Encounter Start Date: 02/06/18 Encounter Start Time: 08:00 Patient seen and examined for Acute CVA. No new focal deficits. No new CP/SOB. No overnight events - Objective Resuscitation Status - Order Detail: 02/02/18 23:29 Resuscitation Status Routine Resuscitation Status: FULL: Full Resuscitation MAR Reviewed: Yes Vital Signs & Weight: Vital Signs (12 hours) Temp Pulse Pulse Pulse Resp BP BP 02/06/18 11:40 98.7 F 71 18 02/06/18 10:51 65 71 132/82 02/06/18 08:43 116/74 02/06/18 08:29 98.6 F 72 20 02/06/18 04:00 98.9 F 76 18 BP BP Pulse Ox 02/06/18 11:40 117/75 95 02/06/18 10:51 117/75 02/06/18 08:43 02/06/18 08:29 116/74 100 02/06/18 04:00 127/81 97 Weight Admit Weight 187 lb 6.287 oz Weight 187 lb 6.287 oz I&O: 02/05/18 02/06/18 02/07/18 06:59 06:59 06:59 Intake Total 1455 1885 Output Total 1101 2200 600 Balance 377 -378 -600 Result Diagrams: 02/04/18 05:10 02/06/18 04:41 EKG Reviewed by me: Yes (Tele SR) Phys Exam - Physical Examination Constitutional: NAD Respiratory: no wheezing, no rhonchi Cardiovascular: RRR, no rub Gastrointestinal: soft, non-tender, positive bowel sounds Musculoskeletal: no edema Neurological: moves all 4 limbs Dx/Plan - Plan DVT proph w/SCDs 1. 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 HTN 3. BPH 4. Acute Rhabdomyolysis - improving 5. Hypokalemia PLAN: Cont Mannitol per Neurosurgery. Monitor serum osmolarity BID On Keppra for seizure prophylaxis AM labs including CK Cont current meds as below Not on antiplatelet agent and Lovenox due to ?hemorrhagic conversion Review of Systems - Review of Systems Respiratory: negative: Cough, Dry, Shortness of Breath, Hemoptysis, SOB with Excertion, Pleuritic Pain, Sputum, Wheezing Cardiovascular: negative: chest pain, palpitations, orthopnea, paroxysmal nocturnal dyspnea, edema, light headedness, other - Medications/Allergies Allergies/Adverse Reactions: Allergies Allergy/AdvReac Type Severity Reaction Status Date / Time No Known Allergies Allergy Verified 02/03/18 00:55 Medications: Current Medications Acetaminophen (Tylenol) 650 mg PO Q4H PRN PRN Reason: Headache/Fever/Mild Pain (1-3) Last Admin: 02/04/18 14:15 Dose: 650 mg Acetaminophen (Tylenol) 650 mg [place] Q4H PRN PRN Reason: Headache/Fever or Pain Atorvastatin Calcium (Lipitor) [address] [facility] Last Admin: 02/05/18 20:44 Dose: 10 mg Benzonatate (Tessalon) 100 mg PO TID [facility] Last Admin: 02/06/18 14:54 Dose: 100 mg Bisacodyl (Dulcolax) 10 mg PO DAILYPRN PRN PRN Reason: Constipation Carvedilol (Coreg) 6.25 mg PO BID-[facility] Last Admin: 02/06/18 08:43 Dose: 6.25 mg Doxazosin Mesylate (Cardura) [address] [facility] Last Admin: 02/05/18 20:42 Dose: 4 mg Famotidine (Pepcid) 20 mg PO BID [facility] Last Admin: 02/06/18 08:43 Dose: 20 mg Folic Acid (Folvite) 1 mg PO DAILY [facility] Last Admin: 02/06/18 08:44 Dose: 1 mg Levetiracetam 500 mg/ Device 100 mls @ 200 mls/hr IVPB BID [facility] Last Admin: 02/06/18 08:44 Dose: 100 mls Miscellaneous Medication 1 (each/ Mannitol) 250 mls @ 166.667 mls/hr FS Q8H [facility] Last Admin: 02/06/18 11:22 Dose: 250 mls Dextrose/Sodium Chloride (D5 0.9% Ns) 1,000 mls @ 50 mls/hr IV .Q20H [facility] Last Admin: 02/06/18 06:44 Dose: Not Given Labetalol HCl (Normodyne) 10 mg SLOW IVP Q1H PRN PRN Reason: Systolic BP > 160 Levetiracetam (Keppra) 500 mg PO BID [facility] Last Admin: 02/06/18 08:46 Dose: Not Given Lorazepam (Ativan) 1 mg SLOW IVP Q4H PRN PRN Reason: Anxiety/Agitation Multivitamins (Theragran) 1 tab PO DAILY [facility] Last Admin: 02/06/18 08:42 Dose: 1 tab Hold Mannitol If Serum Osmolality > 315 1 each FS PRN [facility] Senna/Docusate Sodium (Senokot S) 2 tab PO BID PRN PRN Reason: Constipation Sodium Chloride (Flush - Normal Saline) 10 ml IVF Q12HR [facility] Last Admin: 02/06/18 08:45 Dose: 10 ml Sodium Chloride (Flush - Normal Saline) 10 ml IVF PRN PRN PRN Reason: Saline Flush Thiamine HCl (Thiamine) 100 mg PO DAILY [facility] Last Admin: 02/06/18 08:42 Dose: 100 mg
[2018-02-06] MEDS: Atorvastatin Calcium 10 MG TAB PO SCH (21:59)
[2018-02-06] MEDS: Doxazosin Mesylate 4 MG TAB PO SCH (22:00)
[2018-02-07] MEDS ORDERED: levETIRAcetam 500 MG TAB PO SCH ×2 (00:15→09:00)
[2018-02-07] MEDS: IN MANNITOL FS SCH ×2 (02:51→10:26)
[2018-02-07] MEDS: ADMIXTURE FEE FS SCH ×2 (02:51→10:26)
[2018-02-07 06:26] LABS: #Eosinphils 0.4 thou/uL (0.0-0.7); #Monocytes 0.4 thou/uL (0.11-0.59); #Neutrophils 4.5 thou/uL (1.40-6.50); %Basophils 0.7 % (0.0-1.0); %Eosinophils 6.1 % (0.0-10.0); %Lymphocytes 15.4 % (21.0-51.0); %Monocytes 6.9 % (0.0-10.0); Hemoglobin 12.3 g/dL (14.0-18.0); Mean Corpuscular HGB CONC 33.1 g/dL (32.0-36.0); Mean Corpuscular Hemoglobin 33.5 pg (27.0-31.0); Mean Platelet Volume 7.2 fL (7.4-10.4); Platelet Count 232 thou/uL (130-400); RBC Distribution Width 11.4 % (11.5-14.5); Red Blood Cell (RBC) Count 3.67 mill/uL (4.70-6.10); White Blood Cell (WBC) Count 6.4 thou/uL (4.8-10.8)
[2018-02-07 06:39] LABS: Anion Gap 9 mmol/L (10-20); BUN (Urea Nitrogen) 6 mg/dL (8.4-25.7); CK (CPK) 118 U/L (30-200); Calc. Creatinine Clearance 100 mL/min (70-130); Carbon Dioxide 29 mmol/L (23-31); Chloride 102 mmol/L (98-107); Estimated GFR-MDRD Greater than 90; Glucose 97 mg/dL (80-115); Potassium 3.8 mmol/L (3.5-5.1); Sodium 136 mmol/L (136-145)
--- NOTE | 2018-02-07 07:50 | PRG ---
DATE OF SERVICE: 02/06/2018 The patient is seen and examined. He is alert and appropriate. He is verbally interactive. He is strong on the right and has a dense left hemiparesis. Mannitol had been instituted by the Medical Service. A CT scan is planned for tomorrow morning, and if stable, I anticipate mannitol can be discontinued, and more aggressive effort towards rehab can then be considered. Job ID: [id number]
--- NOTE | 2018-02-07 07:51 | PRG ---
DATE OF SERVICE: 02/06/2018 TYPE OF REPORT: Neurology Followup PRESENT ILLNESS: Neurology followup for CVA. The patient states that he still has problems with his left side and neglect is noted. He denies any trouble swallowing. Note that his liquids have been thickened per Speech Therapy. He is not complaining of anymore headache or cough. He has been started on Tessalon Perles and this has helped his cough. He is still not moving his left side. PHYSICAL EXAMINATION: VITAL SIGNS: On exam, temperature 98.7, pulse 72 and regular, blood pressure 121/64, respiratory rate 18 and O2 saturation is 96%. HEENT: Negative. No drainage. LUNGS: Clear. HEART: No murmurs. ABDOMEN: Benign. EXTREMITIES: No clubbing, cyanosis, or edema. JOINTS: No swelling. NEUROLOGIC: He is awake, alert and oriented x3. Speech is somewhat dysarthric, but not aphasic. Cranial nerves II through XII are normal except for a left central 7 palsy. Motor; the right side has 5/5 strength with normal tone and bulk. The left side has 0/5 in the arm and leg with diminished tone on the left. DTRs are 3+, toes are downgoing on the right and upgoing on the left. Sensation is normal to light touch and temperature on the right side and impaired in the left face, arm and leg on the left. The patient is still on mannitol because of the swelling of his large right hemisphere infarction. LABORATORY DATA: His most recent serum osmolality is 289, which is in the therapeutic range. CAT scan of the brain that was done on 02/05/2018 showed the large infarction in the right middle cerebral artery distribution with mass effect and right to left mid line shift measuring about 10 mm. There was also an old infarction seen in the left cerebellum, which was unchanged. IMPRESSION: Status post a large right hemisphere infarction with some mass effect. PLAN: We will continue with the mannitol at this time. We will get a followup CAT scan of the head in the morning. He will need to have some extensive rehab. Discussed with the patient. Job ID: [id number]
--- NOTE | 2018-02-07 08:51 | PRG ---
DATE OF SERVICE: 02/07/2018 NEUROSURGERY PROGRESS NOTE SUBJECTIVE: I saw Mr. Lincoln Medel in his room this morning. Over the weekend , his neurological examinations remain stable. Nursing did not report any new events overnight. On his recorded vital signs, I do not find any fevers. His blood pressures have been in the 110s to 130s and his pulse is 74. On examination, Mr. Medel is easily arousable. If I stand on the right side of the bed, he opens his eyes and talks to me clearly. Mr. Medel has made it through the period of peak swelling related to his large MCA infarct in the right hemisphere, and he will need neurosurgical intervention. Please call our service back if there are any questions during his hospital stay. Job ID: [id number] MTDD
[2018-02-07] MEDS: Famotidine 20 MG TAB PO SCH (10:25)
[2018-02-07] MEDS: Folic Acid 1 MG TAB PO SCH (10:25)
[2018-02-07] MEDS: Benzonatate 100 MG CAP PO SCH ×2 (10:25→16:28)
[2018-02-07] MEDS: Multivit, Therapeutic 1 TAB PO SCH (10:25)
[2018-02-07] MEDS: Carvedilol 6.25 MG TAB PO SCH ×2 (10:26→16:29)
--- NOTE | 2018-02-07 11:46 | CT ---
CT OF HEAD NONCONTRAST: INDICATION: Acute CVA, followup. COMPARISON: Reference is made to 02/05/2018. FINDINGS: Redemonstration of a large region of subacute infarction of the right MCA distribution with associate d sulcal effacement. There is leftward midline shift again noted at level of septum pellucidum which measures approximately 1 cm, stable. The ventricular system is stable-appearing. No interval acute intracranial hemorrhage. Stable chronic infarction of the left cerebellar hemisphere. IMPRESSION: 1. Redemonstration of subacute large right middle cerebral artery distribution infarction with assoc iated mass effect and midline shift. 2. No obvious hemorrhagic transformation. POS: [facility]
[2018-02-07 16:05] VITALS: TEMP 98.2
[2018-02-07 16:30] VITALS: BP 122/77
--- NOTE | 2018-02-07 21:15 | EKG ---
Test Reason : Blood Pressure : / mmHG Vent. Rate : 080 BPM Atrial Rate : 080 BPM P-R Int : 184 ms QRS Dur : 088 ms QT Int : 382 ms P-R-T Axes : 080 073 071 degrees QTc Int : 440 ms Normal sinus rhythm Normal ECG When compared with ECG of 02-FEB-2018 20:01, No significant change was found Confirmed by NAGA ALONSO, SNga ([id number]) on 02/07/2018 9:15:01 PM Referred By: DANIELA Confirmed By:DR. Olvin NIELSON MD
--- NOTE | 2018-02-08 20:26 | DIS ---
DATE OF ADMISSION: 02/02/2018 DATE OF DISCHARGE: 02/07/2018 DISCHARGE DISPOSITION: To inpatient rehabilitation. FOLLOWUP: 1. Follow up with primary care physician at [facility] in 1 week. 2. Follow up with Neurosurgery, Dr. Kiser, in 3 to 4 weeks. 3. Follow up with Dr. Raymond Rick in 2 weeks. ALLERGIES: NO KNOWN DRUG ALLERGIES. DISCHARGE MEDICATIONS: 1. Carvedilol 3.125 mg b.i.d. 2. Cardura 8 mg at bedtime. 3. Folic acid 1 mg daily. 4. Multivitamin one tablet daily. 5. Senokot-S as needed. 6. Thiamine 100 mg daily. 7. Aspirin 81 mg daily. 8. Finasteride 5 mg daily. 9. Methocarbamol as needed. INPATIENT CONSULTANTS: 1. Neurology, Dr. Rick. 2. Neurosurgery, Dr. Kiser. DIAGNOSTIC TESTS: Chest x-ray on admission was negative for acute findings. CT scan of the brain on February 02, 2018, showed large acute infarction of the right MCA territory with right to left midline shift of 7 mm. Next, MRI of the brain on February 03, 2018, showed large acute infarction in the right MCA distribution with hemorrhagic transformation. Repeat CT scan on the day of discharge did not show any hemorrhagic transformation. Carotid Doppler was negative for hemodynamically significant stenosis. Echocardiogram showed left ventricular ejection fraction 60% to 65% with grade 1-3 diastolic dysfunction. BRIEF HOSPITAL COURSE: The patient is a 62-year-old male with hypertension and benign prostatic hypertrophy, presented to the hospital with sudden onset of left-sided weakness along with slurring of speech. Please refer to the history and physical for further details. The patient was admitted to the hospital with a diagnosis of acute right MCA, CVA with midline shift as well as suspected hemorrhagic conversion. He was monitored in the Stroke Unit. He was started on mannitol after discussion with on-call neurosurgeon. His mentation remained stable. He will be discharged to inpatient rehabilitation. Aspirin 81 mg daily has been resumed after discussion with Neurosurgery on the day of discharge. He also had acute rhabdomyolysis that has resolved. He was evaluated by neurologist, Dr. Rick. He appears stable for discharge. FINAL DIAGNOSES: 1. 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 2. Hypertension. 3. Benign prostatic hypertrophy. 4. Rhabdomyolysis. 5. Hypokalemia. 6. Chronic anemia. DIAGNOSTIC TESTS: CK on admission 2395, at discharge 118. PLAN: Plan of care was discussed with the patient in detail. He stated understanding. Job ID: [id number]
== END 2018-02-07 20:12 | DRG 64 ==
LOC: ERS 19:38 → 2SE 22:57
PROVIDERS: ADMIT Internal Medicine; ATTEND Internal Medicine
DX: I63.89 Other cerebral infarction (principal); I61.8 Other nontraumatic intracerebral hemorrhage; G93.6 Cerebral edema; G81.94 Hemiplegia, unspecified affecting left nondominant side; M62.82 Rhabdomyolysis; R40.2412 Glasgow coma scale score 13-15, at arrival to emergency department; R29.716 NIHSS score 16; E87.6 Hypokalemia; R47.81 Slurred speech; R13.12 Dysphagia, oropharyngeal phase; I10 Essential (primary) hypertension; N40.1 Benign prostatic hyperplasia with lower urinary tract symptoms; R39.16 Straining to void; D64.9 Anemia, unspecified; F17.210 Nicotine dependence, cigarettes, uncomplicated
CPT/HCPCS: 36415; 36416; 70450; 70551; 70553; 71045; 74230; 80048; 80053; 80061; 80307; 82550; 82553; 82607; 82746; 83690; 83735; 83880; 83930; 84443; 84484; 85007; 85025; 85027; 85610; 85730; 90471; 90686; 90732; 93005; 93010; 93306; 93880; 94760; 96361; 96374; 96375; G0008; G0009; G8978-GP-CM; G8979-GP-CK; G8987-GO-CM; G8988-GO-CK; G8996-GN-CK; G8996-GN-CL; G8997-GN-CJ; J0360; J1650; J1953; J2405; J2550; J3411; J7042; J7799; S0028

== ENCOUNTER 2018-03-18 19:51 | Emergency (ER) | payer OTHER ==
[2018-03-18 20:52] LABS: #Basophils 0.1 thou/uL (0.0-0.2); #Eosinphils 0.2 thou/uL (0.0-0.7); #Lymphocytes 1.4 thou/uL (1.20-3.40); #Monocytes 0.4 thou/uL (0.11-0.59); #Neutrophils 6.7 thou/uL (1.40-6.50); %Basophils 0.6 % (0.0-1.0); %Lymphocytes 15.8 % (21.0-51.0); %Monocytes 4.3 % (0.0-10.0); %Neutrophils 77.3 % (42.0-75.0); Hemoglobin 14.2 g/dL (14.0-18.0); Mean Corpuscular HGB CONC 33.6 g/dL (32.0-36.0); Mean Corpuscular Volume 98.3 fL (78.0-98.0); Mean Platelet Volume 7.9 fL (7.4-10.4); Platelet Count 296 thou/uL (130-400); RBC Distribution Width 11.4 % (11.5-14.5); Red Blood Cell (RBC) Count 4.32 mill/uL (4.70-6.10); White Blood Cell (WBC) Count 8.7 thou/uL (4.8-10.8)
[2018-03-18 21:16] LABS: ALT (SGPT) 14 U/L (8-55); AST (SGOT) 19 U/L (5-34); Albumin 4.4 g/dL (3.4-4.8); Alkaline Phosphatase 93 U/L (40-150); Anion Gap 17 mmol/L (10-20); BUN (Urea Nitrogen) 11 mg/dL (8.4-25.7); Bilirubin, Total 1.6 mg/dL (0.2-1.2); Calc. Creatinine Clearance 0 mL/min (70-130); Calcium 10.3 mg/dL (7.8-10.44); Carbon Dioxide 22 mmol/L (23-31); Chloride 103 mmol/L (98-107); Estimated GFR-MDRD 87; Glucose 85 mg/dL (80-115); Lipase 8 U/L (8-78); Potassium 4.1 mmol/L (3.5-5.1); Protein, Total 7.4 g/dL (5.8-8.1); Sodium 138 mmol/L (136-145)
[2018-03-18 23:04] LABS: Bilirubin Small (Negative); Blood, Urine Moderate (Negative); Clarity CLEAR (Clear); Glucose, Urine (Dipstick) Negative (Negative); Leukocyte Trace (Negative); Nitrite Negative (Negative); Protein, Urine (Dipstick) Negative (Neg-Trace); Specific Gravity, Urine 1.016 (1.002-1.036)
[2018-03-18 23:06] LABS: Bacteria/HPF None Seen HPF (None Seen); Hyaline Casts/LPF 0-3 HYALINE CAST LPF (0-3 Hyaline); Squamous Epithelial None Seen HPF (0-3); WBC/HPF None Seen HPF (0-3)
== END 2018-03-19 00:17 | disposition home or self-care (01) ==
LOC: ERS 19:51
DX: N39.0 Urinary tract infection, site not specified (principal); R33.9 Retention of urine, unspecified; I10 Essential (primary) hypertension; Z79.899 Other long term (current) drug therapy; Z86.73 Personal history of transient ischemic attack (TIA), and cerebral infarction without residual deficits
CPT/HCPCS: 36415; 51702; 80053; 81003; 81015; 83690; 85025; 87086

== ENCOUNTER 2018-03-29 07:11 | Emergency (ER) | payer OTHER | END 2018-03-29 08:23 | disposition home or self-care (01) | LOC: ERS 07:11 | DX: K60.2 Anal fissure, unspecified (principal); K64.9 Unspecified hemorrhoids; I10 Essential (primary) hypertension; Z79.899 Other long term (current) drug therapy | CPT/HCPCS: 99282 ==

== ENCOUNTER 2018-04-17 08:47 | Inpatient (IN) | payer OTHER ==
[2018-04-17] MEDS ORDERED: Midazolam HCl 2 mg/2 ml Vial ONE (09:06)
[2018-04-17 09:34] LABS: Bilirubin Small (Negative); Blood, Urine Large (Negative); Glucose, Urine (Dipstick) Negative (Negative); Leukocyte Large (Negative); Nitrite Positive (Negative); Protein, Urine (Dipstick) 100 mg/dL (Neg-Trace); Specific Gravity, Urine 1.025 (1.005-1.030); pH, Urine 6.5 (5.0-9.0)
[2018-04-17 09:38] LABS: Clarity Cloudy (Clear)
[2018-04-17 09:41] LABS: Bacteria/HPF 4+ HPF (None Seen); RBC/HPF GREATER THAN 50-TNTC HPF (0-3); Squamous Epithelial 0-3 HPF (0-3)
[2018-04-17 09:42] LABS: Other Casts/LPF 0-3 COARSE GRAN LPF (0-3 Hyaline)
[2018-04-17 09:46] LABS: #Basophils 0.1 thou/uL (0.0-0.2); #Eosinphils 0.5 thou/uL (0.0-0.7); #Lymphocytes 3.7 thou/uL (1.20-3.40); #Monocytes 0.9 thou/uL (0.11-0.59); #Neutrophils 13.6 thou/uL (1.40-6.50); %Basophils 0.7 % (0.0-1.0); %Eosinophils 2.4 % (0.0-10.0); %Lymphocytes 19.7 % (21.0-51.0); %Monocytes 4.9 % (0.0-10.0); %Neutrophils 72.3 % (42.0-75.0); Hemoglobin 15.8 g/dL (14.0-18.0); Mean Corpuscular HGB CONC 31.1 g/dL (32.0-36.0); Mean Corpuscular Hemoglobin 32.4 pg (27.0-31.0); Mean Platelet Volume 8.2 fL (7.4-10.4); Platelet Count 344 thou/uL (130-400); RBC Distribution Width 11.5 % (11.5-14.5); Red Blood Cell (RBC) Count 4.88 mill/uL (4.70-6.10); White Blood Cell (WBC) Count 18.8 thou/uL (4.8-10.8)
--- NOTE | 2018-04-17 09:52 | RAD ---
SINGLE VIEW OF THE CHEST: COMPARISON: 01/25/2018. HISTORY: Two-minute seizure. Left-sided paralysis. FINDINGS: Single view of the chest shows a normal sized cardiomediastinal silhouette. There is no evidence of c onsolidation, mass, or pleural effusion. The bones are unremarkable. IMPRESSION: No evidence of acute cardiopulmonary disease. POS: [facility]
[2018-04-17 09:57] LABS: ALT (SGPT) 33 U/L (8-55); AST (SGOT) 19 U/L (5-34); Albumin 4.6 g/dL (3.4-4.8); Alkaline Phosphatase 110 U/L (40-150); Anion Gap 37 mmol/L (10-20); BUN (Urea Nitrogen) 14 mg/dL (8.4-25.7); Bilirubin, Total 1.8 mg/dL (0.2-1.2); Calc. Creatinine Clearance 0 mL/min (70-130); Calcium 11.3 mg/dL (7.8-10.44); Carbon Dioxide 10 mmol/L (23-31); Chloride 102 mmol/L (98-107); Estimated GFR-MDRD 53; Globulin 3.5 g/dL (2.4-3.5); Glucose 217 mg/dL (80-115); Lipase 15 U/L (8-78); Potassium 4.7 mmol/L (3.5-5.1); Protein, Total 8.1 g/dL (5.8-8.1); Sodium 144 mmol/L (136-145)
[2018-04-17] MEDS ORDERED: cefTRIAXone\\ROCEPHIN 1 GM VIAL ONE ×2 (10:17→10:22)
[2018-04-17] MEDS ORDERED: Lorazepam 2 MG/ML VIAL ONE ×2 (10:48→11:35)
[2018-04-17] MEDS ORDERED: levETIRAcetam 500 MG/100 ML PREMIX BAG ONE (10:55)
[2018-04-17] MEDS ORDERED: levETIRAcetam In NaCl (Iso-Os) 1,000 MG in Premix Bag 1 BAG IVPB SCH (11:00)
[2018-04-17 11:06] LABS: Acetaminophen Less than 6.0 mcg/mL (10.0-30.0); Alcohol Less than 10 mg/dL (Less than 10); Salicylate Less than 8.0 mg/dL (15.0-30.0)
--- NOTE | 2018-04-17 11:10 | CT ---
CT HEAD NONCONTRAST: HISTORY: Seizure. Recent CVA. COMPARISON: 02/07/2018. FINDINGS: Encephalomalacia of the right temporal and frontal lobes in the distribution of the right MCA infarct has evolved, slightly smaller than on the prior study. Old left cerebellar infarct is stable. No n ew areas of hemorrhage or infarct are apparent. Visualized paranasal sinuses remain well aerated. IMPRESSION: Evolving right cerebral and left cerebellar infarcts. No acute intracranial abnormalities are otherw ise demonstrated. POS: [facility]
--- NOTE | 2018-04-17 11:14 | CT ---
CT OF THE ABDOMEN AND PELVIS WITH CONTRAST: COMPARISON: None. HISTORY: CVA 2 months ago with left-sided neurologic deficits. Seizure-like activity. Constipation for 2 wee ks. Abdominal pain. TECHNIQUE: Multiple contiguous axial images were obtained in a CT of the abdomen and pelvis with contrast. Lorena nal reformats were performed. FINDINGS: Hypodensities are seen in the bilateral kidneys measuring up to 4.9 cm in size which represent cysts. The liver, gallbladder, adrenal glands, spleen, and pancreas are unremarkable. No free air, free f luid, or stranding changes are seen in the abdomen and pelvis. A Garner catheter is seen in the urinary bladder. Moderate stool is seen in the rectal vault. The re st of the colon did not demonstrate significant stool retention. The small bowel is normal in calibe r without evidence of distention. The appendix is unremarkable. No abdominal or pelvic lymphadenopathy is seen. There is ectasia of the infrarenal aorta. Degenerative changes are seen in the spine. The visualized inferior thorax and abdominal wall soft t issues are unremarkable. IMPRESSION: 1. Bilateral renal cysts. 2. Moderate stool retention in the rectal vault. POS: [facility]
[2018-04-17] MEDS ORDERED: Fosphenytoin Sodium 1,500 MG in Sodium Chloride 0.9% 50 ML IVPB SCH (11:30)
[2018-04-17] MEDS ORDERED: Acetaminophen 650 MG Suppository PR PRN (11:31)
[2018-04-17] MEDS ORDERED: Lorazepam 2 MG/ML VIAL SLOW IVP PRN (11:33)
[2018-04-17] MEDS ORDERED: ISOVUE-370 76%-LOCM 1 ML ONE (12:45)
--- NOTE | 2018-04-17 14:19 | HP ---
CHIEF COMPLAINT: Seizure. HISTORY OF PRESENT ILLNESS: The patient is a very pleasant 62-year-old male with history of hypertension, recent stroke that was in February, it was a right MCA stroke, who presented to the hospital with seizure. The patient's son was at the bedside stated that the patient has been complaining of some on and off abdominal pain for the past 3 weeks. He also states that he has not had a good bowel movement for the past 3 to 4 weeks. He later stated that the patient does have hemorrhoids and has been having difficulty or pain when he goes to the bathroom. He has been using Dulcolax suppositories to help with this. However, the quantity of his bowel movement according to the son has been very poor. The son does not recall the patient having any nausea, vomiting, or any fevers or chills. The patient, however, did complain of abdominal pain to the son today when the son asked the father if he wanted to come into hospital. The patient stated that he did not want to come into the hospital; however, at this time, the patient started having a seizure. He has never had seizures in his life before. EMS was called. The patient was brought into the hospital. According to the son, the patient was more awake in the hospital, however, while going to the CAT scan, he had another seizure. The patient was given a total of 6 mg of Ativan and 2 mg of Versed. Upon my arrival, the patient was constantly bobbing his head. There were some concerns if he was in status epilepticus. We did call Neurology prior to that. We gave him another 2 mg of Ativan, which total to be 6 mg of Ativan for this episode. Neurologist at that time stated that just to continue to monitor the patient, she will re-evaluate him later. CT of head did not indicate any acute abnormalities. It just indicated the stroke that he had before. The patient was found to have a urinary tract infection, which he was treated. PAST MEDICAL HISTORY: The patient has a history of: 1. Ischemic stroke. 2. BPH. FAMILY HISTORY: No history of heart disease or stroke. PAST SURGICAL HISTORY: Left knee repair. REVIEW OF SYSTEMS: Unable to obtain. SOCIAL HISTORY: He continues to smoke 3 to 4 cigarettes per the son. However, the son states no alcohol use or drug use. ALLERGIES: NO KNOWN DRUG ALLERGIES. MEDICATIONS: The son had his medication list, indicated: 1. Coreg 3.125 mg b.i.d. 2. Finasteride 5 mg daily. 3. Atorvastatin 10 mg daily. 4. Aspirin 81 mg daily. 5. Cyclobenzaprine 10 mg t.i.d. PHYSICAL EXAMINATION: VITAL SIGNS: The patient was afebrile at 98.0, heart rate was in the 120s, blood pressure was 120/60, and 100% on room air. GENERAL: The patient was completely altered, unable to respond to any of my questions. CV: S1 and S2 present. No murmurs, rubs, or gallops. LUNGS: Clear to auscultation. No rhonchi or wheezes noted. ABDOMEN: Soft. Bowel sounds are present x2. No grimace seen on his face upon palpation of his abdomen. EXTREMITIES: No edema. Pedal pulses are present x2. NEUROVASCULAR: Unable to assess given his altered mentation. SKIN: No cuts, lesions, or bruises noted. : He does have a Garner catheter, which looks intact. HEENT: Pupils equal and reactive to light. Mucous membranes appear to be moist. LABORATORY DATA: The patient's laboratory results were the following; WBCs 18.8, hemoglobin of 15.8, hematocrit of 50.7. He had no bands. Chemistry; sodium of 144, potassium 4.7, BUN of 14, creatinine of 1.61. His sugar was 217. His calcium was 11.3. His bilirubin was 1.8. His troponin x1 was negative. His lactic acid was 20.9. CK is 80. Prolactin was 46.04. His urine was positive for nitrites. Toxicology was negative. He did have a CT of head, which did not indicate any acute abnormalities, just indicated evolving right cerebral and left cerebellum infarct and he had a chest x-ray, which did not indicate any infiltrates. He did have an abdomen and pelvis CT, which indicated moderate amount of stool in his colon and bilateral renal cysts. ASSESSMENT AND PLAN: The patient is a very pleasant 62-year-old male, who comes into the hospital for seizures. 1. Seizures, possible status epilepticus, however unknown. The patient had a seizure at home. He was more awake according to the son and then he had another seizure while going to CAT scan. The patient then after coming back from CAT scan, continued to have bobbing of his head with concerns for possible status. At this time, he was given a total of 6 mg of Ativan and was given 2 mg of Versed. He was evaluated by the neurologist after that, who stated that she will re-evaluate him later again. He also was given Keppra 1000 mg IV and also was given the fosphenytoin. I will order an EEG. I did call the bacteriology technician; however, I did not get a call back. The patient's vitals are stable. His oxygen saturation is 100% on 2 L. He still continues to be somnolent, unknown etiology for his seizure. I am not sure this is due to his old infarct versus a combination of his old infarct with the urinary tract infection and with constipation, not exactly sure. Neurology has been consulted. 2. Urinary tract infection. We will start him on Rocephin. His previous cultures were all negative. He does have a chronic Garner. His Garner catheter has not been changed since February. 3. Lactic acidosis. I believe this is from his seizure. His CK was normal. Continue to monitor. 4. History of stroke. We will continue his aspirin and his statin for now. 5. Deep venous thrombosis prophylaxis. We will put the patient on some SCDs for now. Job ID: [id number]
[2018-04-17 14:29] LABS: Lactic Acid 4.1 mmol/L (0.5-2.2)
[2018-04-17 14:57] VITALS: BMI 25.5
[2018-04-17] MEDS: Sodium Chloride 0.9% 1,000 ML IV SCH (14:57)
--- NOTE | 2018-04-17 18:52 | CON ---
DATE OF CONSULTATION: 04/17/2018 CHIEF COMPLAINT: Seizures. HISTORY OF PRESENT ILLNESS: I was asked to see this patient for multiple seizures by Dr. Lyle. Per his son, the patient had an aneurysm or CVA 2 months ago and seizures are manifested with tightness of his muscles and shortness of breath with altered mental status and this started this morning. He has had several seizures prior to this admit and he never has regular seizures per his son. Per Dr. Lyle, the patient was having some head bobbing and she requested me to see this patient. The patient had previous history of right MCA, CVA and he was at the bedside. The patient has been complaining of abdominal pain for last 3 weeks or so, and he has been using Dulcolax suppository. Son reports that the patient did not have any issues prior to today and suddenly started to have seizures, and the patient was already given Ativan and IV fosphenytoin and Keppra. PREVIOUS MEDICAL HISTORY: CVA, benign prostatic hypertrophy, and lower back issues. The patient has an indwelling catheter. PAST SURGICAL HISTORY: No surgeries in the past. FAMILY HISTORY: Negative for seizures. SOCIAL HISTORY: Son lives with him. The patient smokes 3 cigarettes per day. Does not drink alcohol. REVIEW OF SYSTEMS: Unable to obtain. Per chart, the patient's previous surgery history is positive for knee repair in the left side. REVIEW OF SYSTEMS: Unable to obtain. LABORATORY WORKUP: White count 18.8, hemoglobin 15.8, hematocrit 50.7, platelets 344. Chemistry; sodium 144, potassium 4.7, chloride 102, BUN 14, creatinine 1.61, and glucose 217. His urine tox screen is negative, but UA is positive for nitrite and leukocyte esterase. PHYSICAL EXAMINATION: VITAL SIGNS: Blood pressure was 116/80, pulse rate of 92. He was afebrile, temperature 98.2. GENERAL APPEARANCE: The patient was unconscious when we saw him. HEENT: Pupils 3 mm, reactive to light. CHEST: Clear vesicular breathing. CARDIOVASCULAR: S1 and S2 heard. No murmurs. NEUROLOGIC: He was not awake and difficult to arouse, unable to follow any commands. Cranial nerves, pupils were reactive to light at 3 mm. No facial asymmetry noted. The patient did not open his mouth. Motor exam, tone normal, unresponsive to any stimuli. Deep tendon reflexes were absent. IMPRESSION: The patient is a 62-year-old man with prior history of cerebrovascular accident based on history. He has developed seizures today and had head bobbing as well as tightening of muscles. This type of seizure is usually seen likely from frontal or temporal lobe area. CT scan of the head shows encephalomalacia of the right temporal and frontal lobe in the distribution of right middle cerebral artery infarct and old left cerebellar infarct. He seems to have a mild urinary tract infection, which might have precipitated the seizures. Examination is unreliable because the patient has received Ativan and is wheezy from this. He is unable to follow any commands. Clinically, he seems to have had multiple seizures and is either postictal or sedated due to medication. At this time, I agree with ICU admission and close monitoring of any neurological issues. Agree with IV fosphenytoin and Keppra. Please call Neurology if there are any further questions. Please consider MRI of brain and also EEG in the morning. Consult performed via telemedicine. Job ID: [id number]
[2018-04-17 19:16] LABS: Anion Gap 15 mmol/L (10-20); BUN (Urea Nitrogen) 12 mg/dL (8.4-25.7); Calc. Creatinine Clearance 86 mL/min (70-130); Calcium 9.4 mg/dL (7.8-10.44); Carbon Dioxide 22 mmol/L (23-31); Chloride 106 mmol/L (98-107); Estimated GFR-MDRD Greater than 90; Glucose 105 mg/dL (80-115); Potassium 4.4 mmol/L (3.5-5.1); Sodium 139 mmol/L (136-145)
[2018-04-17] MEDS: Famotidine/PF 20 mg/2ml Vial SLOW IVP SCH (21:26)
[2018-04-18 04:42] LABS: #Eosinphils 0.3 thou/uL (0.0-0.7); #Lymphocytes 1.5 thou/uL (1.20-3.40); #Monocytes 0.4 thou/uL (0.11-0.59); #Neutrophils 6.7 thou/uL (1.40-6.50); %Basophils 0.2 % (0.0-1.0); %Eosinophils 3.2 % (0.0-10.0); %Lymphocytes 16.5 % (21.0-51.0); %Monocytes 4.8 % (0.0-10.0); %Neutrophils 75.4 % (42.0-75.0); Hemoglobin 12.4 g/dL (14.0-18.0); Mean Corpuscular HGB CONC 32.6 g/dL (32.0-36.0); Mean Corpuscular Hemoglobin 32.8 pg (27.0-31.0); Mean Platelet Volume 7.4 fL (7.4-10.4); Platelet Count 225 thou/uL (130-400); RBC Distribution Width 11.3 % (11.5-14.5); Red Blood Cell (RBC) Count 3.76 mill/uL (4.70-6.10); White Blood Cell (WBC) Count 8.8 thou/uL (4.8-10.8)
[2018-04-18 04:59] LABS: Anion Gap 13 mmol/L (10-20); BUN (Urea Nitrogen) 11 mg/dL (8.4-25.7); Calc. Creatinine Clearance 91 mL/min (70-130); Calcium 9.1 mg/dL (7.8-10.44); Carbon Dioxide 23 mmol/L (23-31); Chloride 106 mmol/L (98-107); Estimated GFR-MDRD Greater than 90; Glucose 82 mg/dL (80-115); Sodium 138 mmol/L (136-145)
[2018-04-18] MEDS: Sodium Chloride 0.9% 1,000 ML IV SCH ×2 (05:46→17:01)
[2018-04-18] MEDS: Famotidine/PF 20 mg/2ml Vial SLOW IVP SCH (08:50)
[2018-04-18] MEDS: Aspirin 300 MG Suppository PR SCH ×2 (10:48→10:50)
--- NOTE | 2018-04-18 10:51 | PDOC.PULCN ---
Pulmonology Consult: HPI - Date of Consult Date: 04/18/18 Time: 10:46 - Consult Details Reason for Consult: seizures vs cva Requesting Physician: kimberley Comments: I have examined pt reviewed records and agree with assessment. - History of Present Illness HPI: KG HICKMAN JR is a 62 year-old M who was taken to the ED last night 2/2 to seizures. He has PMH including HTN, stroke w/ L sided deficit in feb 2018, seizures, and indwelling catheter 2/ BPH and the CVA. When patient presented to the ED he was described to have "head bobbing and muscle tightening." He received ativan, versed, fosphenytoin, and keppra. In the ED the patient was post-ictal and was not responding to questions per chart review. this morning patient is AxOx3. The patient states he remember his muscles tightening but does not remember much else about the night. He denies having seizures before, but chart review indicates his son states he has had seizures in the past. The patient denies BILLS, muscle ache, chest pain, or SOB this morning. Patient denies fevers, chills, sweats overnight states he feels he is about at his baseline this morning, states his left sided weakness is as it has been since his stroke in feb 2018. Pulmonology Consult: ROS - Review of Systems All systems: reviewed and no additional remarkable complaints except as stated ( see hpi for neuro) Constitutional: negative: fever, chills, sweats Cardiovascular: negative: chest pain, palpitations Respiratory: negative: congestion, cough, short of breath, wheezing Pulmonology Consult: PMH Source: patient Past Medical History: stroke feb 2018 htn indwelling catheter seizures - Social History Smoking Status: Current every day smoker (1-2 cigarettes per day, 20 pack year smoking history) Alcohol Use: none Drug Use History: none Living Situation: , with family/parents (son) Pulmonology Consult: Meds - Medications Medications: Current Medications Acetaminophen (Tylenol) 650 mg AL Q4H PRN PRN Reason: Headache/Fever/Mild Pain (1-3) Aspirin (Aspirin) 300 mg AL DAILY JORGE Famotidine (Pepcid) 20 mg SLOW IVP Q12HR JORGE Last Admin: 04/18/18 08:50 Dose: 20 mg Ceftriaxone Sodium 1 gm/ (Sodium Chloride) 100 mls @ 200 mls/hr IVPB Q24HR [facility] Sodium Chloride (Normal Saline 0.9%) 1,000 mls @ 75 mls/hr IV .[id number] [facility] Last Admin: 04/18/18 05:46 Dose: 1,000 mls Levetiracetam 500 mg/ Device 100 mls @ 200 mls/hr IVPB BID [facility] Last Admin: 04/18/18 08:53 Dose: 100 mls Lorazepam (Ativan) 2 mg SLOW IVP Q6H PRN PRN Reason: Seizures Polyethylene Glycol (Miralax) 17 gm PO DAILY [facility] Sodium Chloride (Flush - Normal Saline) 10 ml IVF Q12HR [facility] Last Admin: 04/18/18 08:50 Dose: 10 ml Sodium Chloride (Flush - Normal Saline) 10 ml IVF PRN PRN PRN Reason: Saline Flush - Allergies Allergies/Adverse Reactions: Allergies Allergy/AdvReac Type Severity Reaction Status Date / Time No Known Allergies Allergy Verified 02/03/18 00:55 Pulmonology Consult: PE - Physical Exam Constitutional: NAD HEENT: PERRLA, moist MMs Neck: no nodes Cardiovascular: RRR Deviation from normal: 1/6 systolic murmur Respiratory: clear to auscultation anteriorly, clear to auscultation bilaterally. negative: accessory muscle use, rales, respiratory distress Gastrointestinal: soft, non-tender, no distention, positive bowel sounds Musculoskeletal: no edema, pulses present Deviation from normal: cannot move left lower or upper extremity, mild L facial droop -: reflexes intact, drapery and upholstery measurer strength 3/5 on R Psychiatric: normal affect, A&O x 3 Skin: no rash, cap refill <2 seconds Pulmonology Consult: Results - Labs Result Diagrams: 04/18/18 04:05 04/18/18 04:05 Pulmonology Consult: A/P - Problem (1) Seizure Code(s): R56.9 - UNSPECIFIED CONVULSIONS Status: Acute (2) Cerebrovascular accident (CVA) with intracranial hemorrhage Code(s): I61.9 - NONTRAUMATIC INTRACEREBRAL HEMORRHAGE, UNSPECIFIED Status: Acute (3) Dysphagia Code(s): R13.10 - DYSPHAGIA, UNSPECIFIED Status: Acute Qualifiers: Dysphagia type: oropharyngeal phase Qualified Code(s): R13.12 - Dysphagia, oropharyngeal phase (4) Left hemiparesis Code(s): G81.94 - HEMIPLEGIA, UNSPECIFIED AFFECTING LEFT NONDOMINANT SIDE Status: Acute (5) HTN (hypertension) Code(s): I10 - ESSENTIAL (PRIMARY) HYPERTENSION Status: Chronic Qualifiers: Hypertension type: essential hypertension Qualified Code(s): I10 - Essential (primary) hypertension (6) Tobacco abuse Code(s): Z72.0 - TOBACCO USE Status: Chronic - Time Time: 50% of the time was spent in coordination of care (as documented) at patient's floor/unit and/or counseling patient. Time with Patient: greater than 50 minutes - Plan Plan: This is a 62 yo M/ being admitted for Seizure disorder vs CVA. He has a pertinent history including: HTN,cva feb 2018, seizures, 20 pack-year smoking Consults: Neuro, Pulm JOURNEYMAN WELDER (Seizure, possible CVA) - Sedation: none - AxOx3 this AM - CT head showed evolving rt temporal and frontal lobe infarct - EEG this AM completed, read pending - spoke to Dr. Price, ordered MRI brain w/o contrast to eval for CVA - keppra, ASA - s/p ativan, versed, fosphenytoin, keppra in ED - Neurology consulted, appreciate recs Resp () CV (Htn) - permissive htn for now - bp 100/72 this AM GI (constipation) - advance diet pending ST eval - miralax, senna Hematologic () /Renal () Infection () Endo () Lines/Tubes: none Code status: full PPx: scd Dispo: > 2 midnights Likely ok to transfer to stroke unit pending Dr. Mason bunn
[2018-04-18] MEDS ORDERED: Polyethylene Glycol 3350 17 GM Packet PO SCH (11:00)
[2018-04-18] MEDS ORDERED: Aspirin 325 mg Enteric Coated Tablet PO SCH (11:00)
[2018-04-18] MEDS: cefTRIAXone\\ROCEPHIN 1 GM in Sodium Chloride 0.9% 100 ML IVPB SCH (11:00)
--- NOTE | 2018-04-18 15:47 | EEG ---
Referring Physician: Ricardo CASTRO EEG # [id number] TEST TYPE: ROUTINE PORTABLE INPATIENT REPORT: AN EEG USING THE INTERNATIONAL TEN-TWENTY SYSTEM OF ELECTRODE PLACEMENT WAS PERFORMED. The background activity is very low amplitude and appears to be 10 hertz when maximally stimulated. Photic stimulation was unremarkable. Some eye blinks and movement artifact were seen. No sleep was present. No epileptiform features were present. IMPRESSION: THIS IS A NORMAL APPEARING EEG. License Registration Examiner: [employer] Student Advisor: EEG.BRITTANY MATTHEWS
--- NOTE | 2018-04-18 16:48 | MRI ---
MRI BRAIN WITHOUT CONTRAST: Date: 04/18/18 HISTORY: New onset seizure. History of stroke. COMPARISON: 02/03/18. TECHNIQUE: Brain MRI is performed without intravenous Gadolinium administration. Multisequential, multiplanar im aging is performed. FINDINGS: There is limited evaluation due to extensive motion degradation. There is malacic and gliotic change along with laminar necrosis involving the right cerebrum compatible with a previously identified larg e right MCA distribution infarct. Subtle areas of hypointensity on the axial gradient echo sequence l ikely represents hemosiderin deposition. Currently, there is no evidence of definite restricted diffusion. Grossly, central arterial flow-voids appear to be maintained. No midline shift. Basilar cisterns are patent. Remote insult with volume loss in the left cerebellar hemisphere, similar to the previous examination . Grossly, cortical beckford-white matter differentiation is preserved in the left cerebrum. IMPRESSION: 1. Limited evaluation due to motion degradation. Expected changes in the right cerebrum due to previ ous large right MCA distribution infarct. 2. Absent restricted diffusion. No acute infarct. POS: [facility]
--- NOTE | 2018-04-18 17:09 | PDOC.PN ---
- Subjective Encounter Start Date: 04/18/18 Encounter Start Time: 11:15 Subjective: pt up in bed more awake - Objective Resuscitation Status - Order Detail: 04/17/18 11:31 Resuscitation Status Routine Resuscitation Status: FULL: Full Resuscitation Vital Signs & Weight: Vital Signs (12 hours) Temp Pulse Ox 04/18/18 16:00 98.2 F 04/18/18 12:00 98.1 F 04/18/18 08:00 98.7 F 98 Weight Weight 172 lb 13.478 oz Most Recent Monitor Data Heart Rate from ECG 79 NIBP 110/73 NIBP BP-Mean 81 Respiration from ECG 15 SpO2 100 I&O: 04/17/18 04/18/18 04/19/18 06:59 06:59 06:59 Intake Total 1223 650 Output Total 1280 450 Balance -57 200 Result Diagrams: 04/18/18 04:05 04/18/18 04:05 Phys Exam - Physical Examination Neck: no nodes, no JVD, supple, full ROM Respiratory: no wheezing, no rales, no rhonchi, wheezing present, clear to auscultation bilateral Cardiovascular: RRR, no significant murmur, no rub, gallop, irregular Gastrointestinal: soft, non-tender, no distention, positive bowel sounds left sided weakness noted Dx/Plan (1) Seizure Code(s): R56.9 - UNSPECIFIED CONVULSIONS Status: Acute (2) UTI (urinary tract infection) Status: Acute (3) Cerebrovascular accident (CVA) with intracranial hemorrhage Code(s): I61.9 - NONTRAUMATIC INTRACEREBRAL HEMORRHAGE, UNSPECIFIED Status: Acute Comment: Ischemic initially now hemorrhagic conversion, no anticoagulation, hold ASA and Lovenox, Neurosurgery aware of situation (4) HTN (hypertension) Code(s): I10 - ESSENTIAL (PRIMARY) HYPERTENSION Status: Chronic Qualifiers: Hypertension type: essential hypertension Qualified Code(s): I10 - Essential (primary) hypertension Comment: Stable currently, serial monitoring - Plan will continue keppra -: eeg negative -: will get PT to evaluate him -: continue abx for uti * . Review of Systems - Review of Systems Respiratory: negative: Cough, Dry, Shortness of Breath, Hemoptysis, SOB with Excertion, Pleuritic Pain, Sputum, Wheezing Cardiovascular: negative: chest pain, palpitations, orthopnea, paroxysmal nocturnal dyspnea, edema, light headedness, other Gastrointestinal: negative: Nausea, Vomiting, Abdominal Pain, Diarrhea, Constipation, Melena, Hematochezia, Other - Medications/Allergies Allergies/Adverse Reactions: Allergies Allergy/AdvReac Type Severity Reaction Status Date / Time No Known Allergies Allergy Verified 02/03/18 00:55 Medications: Current Medications Acetaminophen (Tylenol) 650 mg [place] Q4H PRN PRN Reason: Headache/Fever/Mild Pain (1-3) Aspirin (Ecotrin) 325 mg PO DAILY [facility] Famotidine (Pepcid) 20 mg PO BID [facility] Ceftriaxone Sodium 1 gm/ (Sodium Chloride) 100 mls @ 200 mls/hr IVPB Q24HR [facility] Last Admin: 04/18/18 11:00 Dose: 100 mls Sodium Chloride (Normal Saline 0.9%) 1,000 mls @ 75 mls/hr IV .[id number] [facility] Last Admin: 04/18/18 17:01 Dose: 1,000 mls Levetiracetam 500 mg/ Device 100 mls @ 200 mls/hr IVPB BID [facility] Last Admin: 04/18/18 08:53 Dose: 100 mls Lorazepam (Ativan) 2 mg SLOW IVP Q6H PRN PRN Reason: Seizures Polyethylene Glycol (Miralax) 17 gm PO DAILY [facility] Senna/Docusate Sodium (Senokot S) 1 tab PO BID [facility] Sodium Chloride (Flush - Normal Saline) 10 ml IVF Q12HR [facility] Last Admin: 04/18/18 08:50 Dose: 10 ml Sodium Chloride (Flush - Normal Saline) 10 ml IVF PRN PRN PRN Reason: Saline Flush
[2018-04-18] MEDS: Famotidine 20 MG TAB PO SCH (21:47)
[2018-04-18] MEDS: Senokot S 8.6-50 MG TAB PO SCH (21:47)
[2018-04-19] MEDS: Sodium Chloride 0.9% 1,000 ML IV SCH ×2 (05:02→19:08)
[2018-04-19] MEDS: Polyethylene Glycol 3350 17 GM Packet PO SCH (08:53)
[2018-04-19] MEDS: Aspirin 325 mg Enteric Coated Tablet PO SCH (08:53)
[2018-04-19] MEDS: Senokot S 8.6-50 MG TAB PO SCH ×2 (08:53→21:30)
[2018-04-19] MEDS: Famotidine 20 MG TAB PO SCH ×2 (10:06→21:30)
[2018-04-19] MEDS: cefTRIAXone\\ROCEPHIN 1 GM in Sodium Chloride 0.9% 100 ML IVPB SCH (10:44)
--- NOTE | 2018-04-19 14:15 | PQF ---
DATE: 04-19-18 ATTN: DR. EVELIO CASTRO Please exercise your independent, professional judgment in responding to the clarification form. Clinical indicators are provided on the bottom of this form for your review Please check appropriate box(s): [ x ] UTI due to or related to Indwelling catheter [ ] UTI Not due to Catheter [ ] Contaminated urine specimen without UTI [ ] Other diagnosis [ ] Unable to determine In addition, please specify: Present on Admission (POA): [ x ] Yes [ ] No [ ] Unable to determine For continuity of documentation, please document condition throughout progress notes and discharge summary. Thank You. CLINICAL INDICATORS - SIGNS / SYMPTOMS / LABS ER DIAGNOSIS: UTI, SEPSIS, STATUS EPILEPTICUS H&P: UTI. HE DOES HAVE A CHRONIC HOFFMAN. HIS HOFFMAN CATHETER HAS NOT BEEN CHANGED SINCE FEBRUARY. RISK FACTORS: H&P: UTI. HE DOES HAVE A CHRONIC HOFFMAN. HIS HOFFMAN CATHETER HAS NOT BEEN CHANGED SINCE FEBRUARY. TREATMENT: ER: CEFTRIAXONE IV, IVF NS (This form is maintained as a part of the permanent medical record) 2014 [employer] All Rights Reserved AUSTIN [email or web address] Office: [phone] [facility] CENTERFei
--- NOTE | 2018-04-19 14:34 | PQF ---
DATE: 04-19-18 ATTN: DR. EVELIO CASTRO Please exercise your independent, professional judgment in responding to the clarification form. Clinical indicators are provided on the bottom of this form for your review Please check appropriate box(s) to clarify if the following diagnosis has been ruled in or ruled out: SEPSIS [ ] Ruled in diagnosis [ ] Continue to treat [ x] Resolved [ ] Ruled out diagnosis [ ] Other diagnosis [ ] Unable to determine In addition, please specify: Present on Admission (POA): [ x] Yes [ ] No [ ] Unable to determine For continuity of documentation, please document condition throughout progress notes and discharge summary. Thank You. CLINICAL INDICATORS - SIGNS / SYMPTOMS / LABS ER DX: UTI, SEPSIS, STATUS EPILEPTICUS H&P: SEIZURES, UTI, LACTIC ACIDOSIS WBC: 04-17-18: 18.8 LACTIC ACID: 04-17-18: 20.9 04-17-18: 4.1 PULSE: ER: 121, 112, 105, 107, 102 BP: ER: 95/72, 90/65 RISK FACTORS: H&P: SEIZURES, UTI, LACTIC ACIDOSIS H&P: UTI WITH CHRONIC HOFFMAN, HIS HOFFMAN CATHETER HAS NOT BEEN CHANGED SINCE FEBRUARY TREATMENTS: ER: CEFTRIAXONE IV, NS IVF (This form is maintained as a part of the permanent medical record) 2014 [employer] All Rights Reserved AUSTIN [email or web address] Office: [phone] MTDFei
[2018-04-19] MEDS ORDERED: Finasteride 5 MG TAB PO SCH (15:00)
--- NOTE | 2018-04-19 15:10 | PDOC.PN ---
- Subjective Encounter Start Date: 04/19/18 Encounter Start Time: 10:30 Subjective: pt up in bed no complains - Objective Resuscitation Status - Order Detail: 04/17/18 11:31 Resuscitation Status Routine Resuscitation Status: FULL: Full Resuscitation Vital Signs & Weight: Vital Signs (12 hours) Temp Pulse BP BP Pulse Ox 04/19/18 14:10 72 129/81 133/84 04/19/18 12:00 97.8 F 04/19/18 08:00 97.6 F 100 04/19/18 04:00 98.2 F Weight Admit Weight 172 lb 13.478 oz Weight 167 lb 12.348 oz Most Recent Monitor Data Heart Rate from ECG 74 NIBP 133/84 NIBP BP-Mean 100 Respiration from ECG 11 SpO2 100 I&O: 04/18/18 04/19/18 04/20/18 06:59 06:59 06:59 Intake Total 1223 2900 375 Output Total 1280 1260 815 Balance -57 1640 -440 Result Diagrams: 04/18/18 04:05 04/18/18 04:05 Phys Exam - Physical Examination Respiratory: no wheezing, no rales, no rhonchi, wheezing present, clear to auscultation bilateral Cardiovascular: RRR, no significant murmur, no rub, gallop, irregular Gastrointestinal: soft, non-tender, no distention, positive bowel sounds Musculoskeletal: no edema, pulses present, edema present left sided weakness Dx/Plan (1) Seizure Code(s): R56.9 - UNSPECIFIED CONVULSIONS Status: Acute (2) UTI (urinary tract infection) Status: Acute (3) Cerebrovascular accident (CVA) with intracranial hemorrhage Code(s): I61.9 - NONTRAUMATIC INTRACEREBRAL HEMORRHAGE, UNSPECIFIED Status: Acute Comment: Ischemic initially now hemorrhagic conversion, no anticoagulation, hold ASA and Lovenox, Neurosurgery aware of situation (4) HTN (hypertension) Code(s): I10 - ESSENTIAL (PRIMARY) HYPERTENSION Status: Chronic Qualifiers: Hypertension type: essential hypertension Qualified Code(s): I10 - Essential (primary) hypertension Comment: Stable currently, serial monitoring - Plan enterobacter in urine. will continue his abx -: will also continue keppra for now -: mri no acute process * . Review of Systems - Review of Systems Respiratory: negative: Cough, Dry, Shortness of Breath, Hemoptysis, SOB with Excertion, Pleuritic Pain, Sputum, Wheezing Cardiovascular: negative: chest pain, palpitations, orthopnea, paroxysmal nocturnal dyspnea, edema, light headedness, other Gastrointestinal: negative: Nausea, Vomiting, Abdominal Pain, Diarrhea, Constipation, Melena, Hematochezia, Other - Medications/Allergies Allergies/Adverse Reactions: Allergies Allergy/AdvReac Type Severity Reaction Status Date / Time No Known Allergies Allergy Verified 02/03/18 00:55 Medications: Current Medications Acetaminophen (Tylenol) 650 mg [place] Q4H PRN PRN Reason: Headache/Fever/Mild Pain (1-3) Aspirin (Ecotrin) 325 mg PO DAILY [facility] Last Admin: 04/19/18 08:53 Dose: 325 mg Famotidine (Pepcid) 20 mg PO BID [facility] Last Admin: 04/19/18 10:06 Dose: 20 mg Finasteride (Proscar) 5 mg PO DAILY [facility] Finasteride (Proscar) 5 mg PO NOW [facility] Stop: 04/19/18 17:00 Last Admin: 04/19/18 15:04 Dose: 5 mg Ceftriaxone Sodium 1 gm/ (Sodium Chloride) 100 mls @ 200 mls/hr IVPB Q24HR [facility] Last Admin: 04/19/18 10:44 Dose: 100 mls Sodium Chloride (Normal Saline 0.9%) 1,000 mls @ 75 mls/hr IV .[id number] [facility] Last Admin: 04/19/18 05:02 Dose: 1,000 mls Levetiracetam 500 mg/ Device 100 mls @ 200 mls/hr IVPB BID [facility] Last Admin: 04/19/18 08:53 Dose: 100 mls Lorazepam (Ativan) 2 mg SLOW IVP Q6H PRN PRN Reason: Seizures Polyethylene Glycol (Miralax) 17 gm PO DAILY [facility] Last Admin: 04/19/18 08:53 Dose: 17 gm Senna/Docusate Sodium (Senokot S) 1 tab PO BID [facility] Last Admin: 04/19/18 08:53 Dose: 1 tab Sodium Chloride (Flush - Normal Saline) 10 ml IVF Q12HR [facility] Last Admin: 04/19/18 08:54 Dose: 10 ml Sodium Chloride (Flush - Normal Saline) 10 ml IVF PRN PRN PRN Reason: Saline Flush Last Admin: 04/18/18 21:47 Dose: 10 ml
--- NOTE | 2018-04-19 18:21 | PRG ---
DATE OF SERVICE: 04/19/2018 SUBJECTIVE: Mr. Medel is much more talkative today. He is in no distress. He says he has had his Garner in since these February, never had a voiding trial with that out since he came in with stroke. He is interested in trying this in a monitored environment in the hospital, so I have recommended that we try this. OBJECTIVE: VITAL SIGNS: Stable. He is afebrile. Heart rate is in 70s. Blood pressure 130/87. GENERAL: He has had no seizures. LUNGS: Clear. HEART: Regular rate and rhythm. ABDOMEN: Soft and nontender. EXTREMITIES: Without edema. LABORATORY DATA: There is no new lab. IMPRESSION: 1. Seizure secondary to a stroke in the recent past, seemed to be controlled. 2. Prostate problems with indwelling Garner now for two months. 3. Hopefully, he will be able to void. 4. He is restarted on his prostate medication today. He is stable to move out of Critical Care in my opinion. Job ID: [id number]
[2018-04-20] MEDS: Senokot S 8.6-50 MG TAB PO SCH ×2 (10:15→20:23)
[2018-04-20] MEDS: Famotidine 20 MG TAB PO SCH ×2 (10:16→20:22)
[2018-04-20] MEDS: Finasteride 5 MG TAB PO SCH (10:16)
[2018-04-20] MEDS: Aspirin 325 mg Enteric Coated Tablet PO SCH (10:16)
[2018-04-20] MEDS: Polyethylene Glycol 3350 17 GM Packet PO SCH (10:16)
[2018-04-20] MEDS: cefTRIAXone\\ROCEPHIN 1 GM in Sodium Chloride 0.9% 100 ML IVPB SCH (11:50)
--- NOTE | 2018-04-20 15:32 | PDOC.PN ---
- Subjective Encounter Start Date: 04/20/18 Encounter Start Time: 10:15 Subjective: pt up in bed feels well - Objective Resuscitation Status - Order Detail: 04/17/18 11:31 Resuscitation Status Routine Resuscitation Status: FULL: Full Resuscitation Vital Signs & Weight: Vital Signs (12 hours) Temp Pulse Resp BP Pulse Ox 04/20/18 11:51 98.3 F 73 16 132/96 H 96 04/20/18 07:52 97.3 F L 82 16 130/83 95 04/20/18 05:36 98.4 F 75 16 122/76 94 L Weight Admit Weight 172 lb 13.478 oz Weight 167 lb 12.348 oz Most Recent Monitor Data Heart Rate from ECG 87 NIBP 125/86 NIBP BP-Mean 98 Respiration from ECG 10 SpO2 100 I&O: 04/19/18 04/20/18 04/21/18 06:59 06:59 06:59 Intake Total 2900 1015 240 Output Total 1260 2565 Balance 1640 -1550 240 Result Diagrams: 04/18/18 04:05 04/18/18 04:05 Phys Exam - Physical Examination Neck: no nodes, no JVD, supple, full ROM Respiratory: no wheezing, no rales, no rhonchi, wheezing present, clear to auscultation bilateral Cardiovascular: RRR, no significant murmur, no rub, gallop, irregular Gastrointestinal: soft, non-tender, no distention, positive bowel sounds Dx/Plan (1) Seizure Code(s): R56.9 - UNSPECIFIED CONVULSIONS Status: Acute (2) UTI (urinary tract infection) Status: Acute (3) Cerebrovascular accident (CVA) with intracranial hemorrhage Code(s): I61.9 - NONTRAUMATIC INTRACEREBRAL HEMORRHAGE, UNSPECIFIED Status: Acute Comment: Ischemic initially now hemorrhagic conversion, no anticoagulation, hold ASA and Lovenox, Neurosurgery aware of situation (4) HTN (hypertension) Code(s): I10 - ESSENTIAL (PRIMARY) HYPERTENSION Status: Chronic Qualifiers: Hypertension type: essential hypertension Qualified Code(s): I10 - Essential (primary) hypertension Comment: Stable currently, serial monitoring - Plan will continue keppra for now -: pt awaiting snf -: will continue abx for now * . Review of Systems - Review of Systems Respiratory: negative: Cough, Dry, Shortness of Breath, Hemoptysis, SOB with Excertion, Pleuritic Pain, Sputum, Wheezing Cardiovascular: negative: chest pain, palpitations, orthopnea, paroxysmal nocturnal dyspnea, edema, light headedness, other Gastrointestinal: negative: Nausea, Vomiting, Abdominal Pain, Diarrhea, Constipation, Melena, Hematochezia, Other - Medications/Allergies Allergies/Adverse Reactions: Allergies Allergy/AdvReac Type Severity Reaction Status Date / Time No Known Allergies Allergy Verified 02/03/18 00:55 Medications: Current Medications Acetaminophen (Tylenol) 650 mg [place] Q4H PRN PRN Reason: Headache/Fever/Mild Pain (1-3) Aspirin (Aspirin Chewable) 81 mg PO QPM [facility] Atorvastatin Calcium (Lipitor) 10 mg PO HS [facility] Carvedilol (Coreg) 3.125 mg PO BID [facility] Famotidine (Pepcid) 20 mg PO BID [facility] Last Admin: 04/20/18 10:16 Dose: 20 mg Finasteride (Proscar) 5 mg PO DAILY [facility] Last Admin: 04/20/18 10:16 Dose: 5 mg Ceftriaxone Sodium 1 gm/ (Sodium Chloride) 100 mls @ 200 mls/hr IVPB Q24HR [facility] Last Admin: 04/20/18 11:50 Dose: 100 mls Sodium Chloride (Normal Saline 0.9%) 1,000 mls @ 0 mls/hr IV .Q0M [facility] Last Admin: 04/19/18 19:08 Dose: 1,000 mls Levetiracetam (Keppra) 500 mg PO BID [facility] Lorazepam (Ativan) 2 mg SLOW IVP Q6H PRN PRN Reason: Seizures Polyethylene Glycol (Miralax) 17 gm PO DAILY [facility] Last Admin: 04/20/18 10:16 Dose: 17 gm Senna/Docusate Sodium (Senokot S) 1 tab PO BID [facility] Last Admin: 04/20/18 10:15 Dose: 1 tab Sodium Chloride (Flush - Normal Saline) 10 ml IVF Q12HR [facility] Last Admin: 04/20/18 10:18 Dose: 10 ml Sodium Chloride (Flush - Normal Saline) 10 ml IVF PRN PRN PRN Reason: Saline Flush Last Admin: 04/18/18 21:47 Dose: 10 ml
[2018-04-20] MEDS: Atorvastatin Calcium 10 MG TAB PO SCH (20:22)
[2018-04-20] MEDS: levETIRAcetam 500 MG TAB PO SCH (20:22)
[2018-04-20] MEDS: Carvedilol 3.125 MG TAB PO SCH (20:22)
[2018-04-20] MEDS: Aspirin Chewable 81 MG TAB PO SCH (20:23)
--- NOTE | 2018-04-20 21:01 | PRG ---
DATE OF SERVICE: 04/20/2018 SUBJECTIVE: Mr. Coello has no complaints. He has had no seizures. OBJECTIVE: VITAL SIGNS: He is afebrile, heart rate 73, respiratory rate 16, oximetry is 96% on room air, and blood pressure 135/87. LUNGS: Clear. HEART: Regular rhythm. ABDOMEN: Soft. LABORATORY DATA: There is no new lab. IMPRESSION: Seizures after cerebrovascular accident, appears to be stable. There is no evidence of infectious process or an aspiration pneumonia at this time. I would think he could be transferred back to the shelter as opposed to a skilled unit. He is residing in shelter prior to admission from what I understand. We will sign off. Job ID: [id number] MTDD
[2018-04-21] MEDS: Polyethylene Glycol 3350 17 GM Packet PO SCH (09:05)
[2018-04-21] MEDS: Finasteride 5 MG TAB PO SCH (09:06)
[2018-04-21] MEDS: Famotidine 20 MG TAB PO SCH ×2 (09:06→20:14)
[2018-04-21] MEDS: Senokot S 8.6-50 MG TAB PO SCH ×2 (09:06→20:14)
[2018-04-21] MEDS: levETIRAcetam 500 MG TAB PO SCH ×2 (09:06→20:14)
[2018-04-21] MEDS: Carvedilol 3.125 MG TAB PO SCH ×2 (09:06→20:14)
[2018-04-21] MEDS ORDERED: Aspirin Chewable 81 MG TAB PO SCH (14:30)
--- NOTE | 2018-04-21 14:56 | PDOC.PN ---
- Subjective Encounter Start Date: 04/21/18 Encounter Start Time: 10:00 Subjective: pt up in bed no complains - Objective Resuscitation Status - Order Detail: 04/17/18 11:31 Resuscitation Status Routine Resuscitation Status: FULL: Full Resuscitation Vital Signs & Weight: Vital Signs (12 hours) Temp Pulse Resp BP Pulse Ox 04/21/18 12:00 98.3 F 78 20 114/71 98 04/21/18 08:00 98.3 F 73 20 126/79 99 04/21/18 04:00 97.7 F 82 19 121/67 97 Weight Admit Weight 172 lb 13.478 oz Weight 167 lb 12.348 oz Most Recent Monitor Data Heart Rate from ECG 87 NIBP 125/86 NIBP BP-Mean 98 Respiration from ECG 10 SpO2 100 I&O: 04/20/18 04/21/18 04/22/18 06:59 06:59 06:59 Intake Total 1015 1523 240 Output Total 2565 450 Balance -1550 1073 240 Result Diagrams: 04/18/18 04:05 04/18/18 04:05 Phys Exam - Physical Examination Respiratory: no wheezing, no rales, no rhonchi, wheezing present, clear to auscultation bilateral Cardiovascular: RRR, no significant murmur, no rub, gallop, irregular Gastrointestinal: soft, non-tender, no distention, positive bowel sounds Musculoskeletal: no edema, pulses present, edema present Dx/Plan (1) Seizure Code(s): R56.9 - UNSPECIFIED CONVULSIONS Status: Acute (2) UTI (urinary tract infection) Status: Acute (3) HTN (hypertension) Code(s): I10 - ESSENTIAL (PRIMARY) HYPERTENSION Status: Chronic Qualifiers: Hypertension type: essential hypertension Qualified Code(s): I10 - Essential (primary) hypertension Comment: Stable currently, serial monitoring (4) CVA (cerebral vascular accident) Code(s): I63.9 - CEREBRAL INFARCTION, UNSPECIFIED Status: Acute - Plan awaiting snf, will conitnue current abx -: continue keppra -: pt on asa/statin * . Review of Systems - Review of Systems Respiratory: negative: Cough, Dry, Shortness of Breath, Hemoptysis, SOB with Excertion, Pleuritic Pain, Sputum, Wheezing Cardiovascular: negative: chest pain, palpitations, orthopnea, paroxysmal nocturnal dyspnea, edema, light headedness, other Gastrointestinal: negative: Nausea, Vomiting, Abdominal Pain, Diarrhea, Constipation, Melena, Hematochezia, Other - Medications/Allergies Allergies/Adverse Reactions: Allergies Allergy/AdvReac Type Severity Reaction Status Date / Time No Known Allergies Allergy Verified 02/03/18 00:55 Medications: Current Medications Acetaminophen (Tylenol) 650 mg [place] Q4H PRN PRN Reason: Headache/Fever/Mild Pain (1-3) Aspirin (Aspirin Chewable) 81 mg PO QPM [facility] Last Admin: 04/20/18 20:23 Dose: Not Given Aspirin (Aspirin Chewable) 81 mg PO NOW [facility] Stop: 04/21/18 16:30 Atorvastatin Calcium (Lipitor) 10 mg PO HS [facility] Last Admin: 04/20/18 20:22 Dose: 10 mg Carvedilol (Coreg) 3.125 mg PO BID [facility] Last Admin: 04/21/18 09:06 Dose: 3.125 mg Famotidine (Pepcid) 20 mg PO BID [facility] Last Admin: 04/21/18 09:06 Dose: 20 mg Finasteride (Proscar) 5 mg PO DAILY [facility] Last Admin: 04/21/18 09:06 Dose: 5 mg Levetiracetam (Keppra) 500 mg PO BID [facility] Last Admin: 04/21/18 09:06 Dose: 500 mg Levofloxacin (Levaquin) 500 mg PO 0600 [facility] Lorazepam (Ativan) 2 mg SLOW IVP Q6H PRN PRN Reason: Seizures Polyethylene Glycol (Miralax) 17 gm PO DAILY [facility] Last Admin: 04/21/18 09:05 Dose: 17 gm Senna/Docusate Sodium (Senokot S) 1 tab PO BID [facility] Last Admin: 04/21/18 09:06 Dose: 1 tab Sodium Chloride (Flush - Normal Saline) 10 ml IVF Q12HR [facility] Last Admin: 04/21/18 09:05 Dose: 10 ml Sodium Chloride (Flush - Normal Saline) 10 ml IVF PRN PRN PRN Reason: Saline Flush Last Admin: 04/18/18 21:47 Dose: 10 ml
[2018-04-21] MEDS: Aspirin Chewable 81 MG TAB PO SCH (20:14)
[2018-04-21] MEDS: Atorvastatin Calcium 10 MG TAB PO SCH (20:14)
[2018-04-22] MEDS: Famotidine 20 MG TAB PO SCH (09:39)
[2018-04-22] MEDS: Finasteride 5 MG TAB PO SCH (09:39)
[2018-04-22] MEDS: Senokot S 8.6-50 MG TAB PO SCH (09:39)
[2018-04-22] MEDS: Polyethylene Glycol 3350 17 GM Packet PO SCH (09:40)
[2018-04-22] MEDS: Carvedilol 3.125 MG TAB PO SCH (09:40)
[2018-04-22] MEDS: levETIRAcetam 500 MG TAB PO SCH (09:40)
[2018-04-22 15:46] VITALS: BP 129/80; TEMP 99
--- NOTE | 2018-04-24 20:57 | DIS ---
DATE OF ADMISSION: 04/17/2018 DATE OF DISCHARGE: 04/22/2018 DISCHARGE DIAGNOSES: As of the following; 1. Seizure. 2. Urinary tract infection. 3. Hypertension. 4. Cerebrovascular accident. HOSPITAL COURSE: The patient is a 62-year-old male who lives at home with a recent CVA with left-sided weakness, who presented to the hospital after a seizure. The patient's son who is at the bedside stated that he became very confused and had some shakes, so he was brought into the ER for further evaluation. The patient had a brain MRI and the brain MRI just indicated a limited evaluation due to motion degradation just indicated expected changes in the right cerebrum due to previous large right MCA stroke. Since the patient was in the ER, he did continues to had these jerks or tics and he was very altered at this time, therefore, concerns are possible status epilepticus. The patient was given fosphenytoin, loaded with Keppra and also was given a total of 8 mg of Ativan. He was initially admitted into the ICU. He was seen by Neurology. He was found to have a UTI that indicated a culture for Enterobacter and Citrobacter. He does have a chronic Garner. We did try to remove the Garner to do voiding trials; however, the patient was unsuccessful. The patient then also had itchy, which was normal in appearance. The patient continued to improve without any difficulties. He was discharged to the rehab for further management. HOME MEDICATIONS: 1. Proscar 5 mg daily. 2. Levaquin 500 mg daily. 3. MiraLAX 17 g daily. 4. Senokot one b.i.d. 5. Keppra 500 b.i.d. 6. Coreg 3.125 mg b.i.d. 7. Atorvastatin 10 mg daily. 8. Aspirin 81 mg daily. 9. Flexeril 5 mg t.i.d. p.r.n. PHYSICAL EXAMINATION: VITAL SIGNS: Temperature 99.0, pulse 74, respirations 16, O2 saturations 98% on room air, and blood pressure 129/80. GENERAL: He is awake, alert, and oriented x3. Does not appear in distress. CV: S1, S2 present. No murmurs, rubs, or gallops. ABDOMEN: Soft and nontender. Bowel sounds are present x2. He does have weakness to his left upper and left lower extremity. Again, he will follow up with Neurology as an outpatient and also he will be going to a SNF. Job ID: [id number]
== END 2018-04-22 17:18 | DRG 698 ==
LOC: ERS 08:47 → CCU 12:16 → 2SE 04-19 18:49
PROVIDERS: ADMIT Internal Medicine; ATTEND Internal Medicine
DX: T83.511A Infection and inflammatory reaction due to indwelling urethral catheter, initial encounter (principal); A41.9 Sepsis, unspecified organism; E87.2 Acidosis; I69.354 Hemiplegia and hemiparesis following cerebral infarction affecting left non-dominant side; I69.398 Other sequelae of cerebral infarction; R56.9 Unspecified convulsions; I10 Essential (primary) hypertension; R13.12 Dysphagia, oropharyngeal phase; N42.9 Disorder of prostate, unspecified; B96.89 Other specified bacterial agents as the cause of diseases classified elsewhere; F17.210 Nicotine dependence, cigarettes, uncomplicated; Z79.82 Long term (current) use of aspirin
CPT/HCPCS: 36415; 70450; 70551; 71045; 74177; 80048; 80053; 80307; 81003; 81015; 82550; 83605; 83690; 84146; 84484; 85025; 87040; 87077; 87086; 87186; 93005; 93010; 95816; 95819; 96361; 96365; 96375; J0696; J1953; J2060; J2250; J7050; Q2009; Q9966; S0028

== ENCOUNTER 2018-06-21 09:02 | Emergency (ER) | payer OTHER ==
--- NOTE | 2018-06-21 09:22 | RAD ---
FRONTAL VIEW CHEST: COMPARISON: 04/17/2018 INDICATION: Chest pain FINDINGS: Lungs are hyperinflated. No new consolidation. Cardiomediastinal silhouette is normal in size, stable appearing. IMPRESSION: Stable chest. Transcribed Date/Time: 06/21/2018 9:45 AM
[2018-06-21 09:30] LABS: Hemoglobin 14.1 g/dL (14.0-18.0); Mean Corpuscular Hemoglobin 32.1 pg (27.0-31.0); Mean Platelet Volume 7.1 fL (7.4-10.4); Platelet Count 273 thou/uL (130-400); RBC Distribution Width 12.2 % (11.5-14.5); Red Blood Cell (RBC) Count 4.38 mill/uL (4.70-6.10); White Blood Cell (WBC) Count 6.2 thou/uL (4.8-10.8)
[2018-06-21 09:44] LABS: Band 1 % (5-11); Eosinophils 7 % (0-10); Lymphocytes 30 % (21-51); MDiff Complete? YES; Monocytes 1 % (0-10); Neutrophil 60 % (42-75); RBC Morphology Normal
[2018-06-21 09:48] LABS: ALT (SGPT) 17 U/L (8-55); AST (SGOT) 16 U/L (5-34); Albumin 4.8 g/dL (3.4-4.8); Alkaline Phosphatase 94 U/L (40-150); Anion Gap 17 mmol/L (10-20); BUN (Urea Nitrogen) 8 mg/dL (8.4-25.7); Bilirubin, Total 1.7 mg/dL (0.2-1.2); Calc. Creatinine Clearance 0 mL/min (70-130); Calcium 10.3 mg/dL (7.8-10.44); Carbon Dioxide 24 mmol/L (23-31); Chloride 102 mmol/L (98-107); Estimated GFR-MDRD 71; Globulin 2.9 g/dL (2.4-3.5); Glucose 90 mg/dL (80-115); Potassium 4.5 mmol/L (3.5-5.1); Protein, Total 7.7 g/dL (5.8-8.1); Sodium 138 mmol/L (136-145)
== END 2018-06-21 11:59 ==
LOC: ERS 09:02
DX: R00.2 Palpitations (principal); I10 Essential (primary) hypertension; F17.200 Nicotine dependence, unspecified, uncomplicated; Z86.73 Personal history of transient ischemic attack (TIA), and cerebral infarction without residual deficits
CPT/HCPCS: 36415; 71045; 80053; 84484; 85025; 93005

== ENCOUNTER 2018-07-07 09:43 | Emergency (ER) | payer OTHER ==
[2018-07-07] MEDS ORDERED: Lorazepam 2 MG/ML VIAL ONE ×2 (09:47→09:53)
[2018-07-07 10:31] LABS: ALT (SGPT) 13 U/L (8-55); AST (SGOT) 13 U/L (5-34); Albumin 4.2 g/dL (3.4-4.8); Alkaline Phosphatase 79 U/L (40-150); Anion Gap 14 mmol/L (10-20); BUN (Urea Nitrogen) 7 mg/dL (8.4-25.7); Bilirubin, Total 1.1 mg/dL (0.2-1.2); Calc. Creatinine Clearance 0 mL/min (70-130); Carbon Dioxide 27 mmol/L (23-31); Chloride 102 mmol/L (98-107); Estimated GFR-MDRD Greater than 90; Globulin 2.7 g/dL (2.4-3.5); Glucose 87 mg/dL (80-115); Potassium 4.4 mmol/L (3.5-5.1); Protein, Total 6.9 g/dL (5.8-8.1); Sodium 139 mmol/L (136-145)
--- NOTE | 2018-07-07 10:55 | CT ---
CT HEAD NONCONTRAST: Date: 07/07/18 INDICATION: Stroke, left side weakness. COMPARISON: 04/17/18. FINDINGS: There is a large region of encephalomalacia of the right MCA distribution. There is moderate encephal omalacia of left cerebellar hemisphere. No intracranial hemorrhage, mass effect, or midline shift. IMPRESSION: 1. Multifocal encephalomalacia involving supratentorial and infratentorial brain bilaterally. 2. No acute intracranial hemorrhage or mass effect. Telephone called placed to ER care provider, Dr. Allen, at 1001 hours on 07/07/18. CODE CR.
[2018-07-07 11:41] LABS: #Basophils 0.1 thou/uL (0.0-0.2); #Eosinphils 0.3 thou/uL (0.0-0.7); #Lymphocytes 2.4 thou/uL (1.20-3.40); #Monocytes 0.3 thou/uL (0.11-0.59); #Neutrophils 2.8 thou/uL (1.40-6.50); %Eosinophils 5.6 % (0.0-10.0); %Lymphocytes 40.5 % (21.0-51.0); %Monocytes 5.5 % (0.0-10.0); %Neutrophils 47.5 % (42.0-75.0); Hemoglobin 14.1 g/dL (14.0-18.0); Mean Corpuscular HGB CONC 33.1 g/dL (32.0-36.0); Mean Corpuscular Hemoglobin 33.5 pg (27.0-31.0); Platelet Count 228 thou/uL (130-400); Red Blood Cell (RBC) Count 4.22 mill/uL (4.70-6.10); White Blood Cell (WBC) Count 5.9 thou/uL (4.8-10.8)
== END 2018-07-07 13:23 | disposition home or self-care (01) ==
LOC: ERS 09:43
DX: R56.9 Unspecified convulsions (principal); I10 Essential (primary) hypertension; F17.210 Nicotine dependence, cigarettes, uncomplicated; Z79.899 Other long term (current) drug therapy; Z79.82 Long term (current) use of aspirin
CPT/HCPCS: 36416; 70450; 80053; 84146; 85025; 85730; 93005; 96374; J2060

== ENCOUNTER 2018-07-09 08:37 | Inpatient (IN) | payer OTHER ==
[2018-07-09] MEDS ORDERED: Lorazepam 2 MG/ML VIAL ONE (09:17)
--- NOTE | 2018-07-09 09:23 | RAD ---
AP view chest. HISTORY: Chest pain AP view chest obtained on 07/09/2018. Comparison made to previous exam from 06/21/2018. AP view chest demonstrates the lungs to be well aerated. No evidence of active intrathoracic disease seen. No evidence of effusions, pneumonia or pneumothorax seen. IMPRESSION: unremarkable one view chest.
[2018-07-09] MEDS ORDERED: levETIRAcetam In NaCl (Iso-Os) 1,000 MG in Premix Bag 1 BAG IVPB SCH (09:45)
[2018-07-09 09:53] LABS: #Eosinphils 0.1 thou/uL (0.0-0.7); #Monocytes 0.4 thou/uL (0.11-0.59); #Neutrophils 5.8 thou/uL (1.40-6.50); %Basophils 0.1 % (0.0-1.0); %Eosinophils 0.9 % (0.0-10.0); %Lymphocytes 14.1 % (21.0-51.0); %Monocytes 5.4 % (0.0-10.0); %Neutrophils 79.6 % (42.0-75.0); Hemoglobin 13.8 g/dL (14.0-18.0); Mean Corpuscular HGB CONC 34.1 g/dL (32.0-36.0); Mean Corpuscular Hemoglobin 34.1 pg (27.0-31.0); Mean Platelet Volume 7.4 fL (7.4-10.4); Platelet Count 210 thou/uL (130-400); Red Blood Cell (RBC) Count 4.04 mill/uL (4.70-6.10); White Blood Cell (WBC) Count 7.3 thou/uL (4.8-10.8)
[2018-07-09 10:17] LABS: ALT (SGPT) 12 U/L (8-55); AST (SGOT) 13 U/L (5-34); Albumin 4.3 g/dL (3.4-4.8); Alkaline Phosphatase 84 U/L (40-150); Anion Gap 16 mmol/L (10-20); BUN (Urea Nitrogen) 10 mg/dL (8.4-25.7); Bilirubin, Total 1.8 mg/dL (0.2-1.2); Calc. Creatinine Clearance 0 mL/min (70-130); Calcium 10.4 mg/dL (7.8-10.44); Carbon Dioxide 25 mmol/L (23-31); Chloride 99 mmol/L (98-107); Estimated GFR-MDRD Greater than 90; Glucose 87 mg/dL (80-115); Potassium 4.1 mmol/L (3.5-5.1); Protein, Total 7.3 g/dL (5.8-8.1); Sodium 136 mmol/L (136-145)
--- NOTE | 2018-07-09 10:51 | CT ---
EXAM: CT Brain WO Con PROVIDED CLINICAL HISTORY: Seizure COMPARISON: 07/07/2018 FINDINGS: The ventricular system is unchanged in size and morphology. Remote ischemic changes as recently descr ibed appear stable. There is no evidence for intracranial hemorrhage or mass effect. The extracranial soft tissues and osseous structures demonstrate an unchanged CT appearance. IMPRESSION: No evidence for intracranial hemorrhage or mass effect.
[2018-07-09 14:04] LABS: Troponin I Less than 0.010 ng/mL (< 0.028)
[2018-07-09] MEDS ORDERED: Lorazepam 2 MG/ML VIAL SLOW IVP PRN (14:55)
[2018-07-09] MEDS ORDERED: Ondansetron ODT 4 MG TAB PO PRN (14:55)
[2018-07-09] MEDS ORDERED: Ondansetron PF 4 MG/2 ML Vial IVP PRN (14:55)
[2018-07-09] MEDS ORDERED: hydrALAZINE 20 MG/ML VIAL SLOW IVP PRN (14:55)
[2018-07-09] MEDS ORDERED: Acetaminophen 500 MG TAB PO PRN (14:55)
[2018-07-09] MEDS: Sodium Chloride 0.9% 1,000 ML IV SCH (15:08)
[2018-07-09 15:58] VITALS: BMI 23.7
[2018-07-09 17:24] LABS: Troponin I Less than 0.010 ng/mL (< 0.028)
--- NOTE | 2018-07-09 17:55 | HP ---
PRIMARY CARE PROVIDER: Dr. Thorpe. CHIEF COMPLAINT: Question of seizures. HISTORY OF PRESENT ILLNESS: This is a 62-year-old male, who presents to [facility] Emergency Department in transfer from [facility], where the patient has been noted with seizure and tonic-clonic movements of the neck and upper extremity over the last 48 hours. The patient with prior history of seizure activity on Keppra 500 mg twice daily. The patient's history is significant for ischemic CVA with residual left hemiparesis. Currently residing in [facility]. The patient was noted by long term staff with tonic-colonic movements and apparently was evaluated at [facility] within the last 48 hours for similar presentation. The patient received Ativan and was released back to the long term. The patient also noted with altered mentation and somnolence with some combative features. No specific history of head injury, recent fever, infectious process, or known sick contacts. History is obtained after review of electronic medical record as well as discussions with the emergency room attending as the patient is currently somnolent after receiving Ativan and Keppra. In the emergency room, the patient was noted with tonic clonic activity concerning for seizures, receiving 1000 mg IV of Keppra in addition to Ativan [address] and chest imaging were negative. PAST MEDICAL HISTORY: 1. Seizure disorder. 2. Hypertension. 3. Ischemic CVA with residual left hemiparesis. 4. Intermittent encephalopathy multifactorial. 5. Hyperlipidemia. 6. Tobacco use. PAST SURGICAL HISTORY: Status post left knee repair. CURRENT MEDICATIONS: Based on recent admission in April 2018; 1. Aspirin enteric-coated 81 mg p.o. daily. 2. Lipitor 10 mg p.o. at bedtime. 3. Coreg 3.125 mg p.o. b.i.d. 4. Keppra 500 mg p.o. b.i.d. 5. Finasteride 5 mg p.o. daily. 6. Flexeril 5 mg p.o. t.i.d. p.r.n. muscle spasms. ALLERGIES: NO KNOWN DRUG ALLERGIES. FAMILY HISTORY: Positive for hypertension. SOCIAL HISTORY: The patient resides at [facility]. Smokes 2 to 3 cigarettes per day. No alcohol or illicit drug use. REVIEW OF SYSTEMS: Unobtainable as the patient is somnolent after receiving Ativan. PHYSICAL EXAMINATION: VITAL SIGNS: Blood pressure 115/73, pulse 73, respiratory rate 13, temperature 98 degrees Fahrenheit, and O2 saturation 98% on 2 L/minute by nasal cannula. GENERAL APPEARANCE: This is a 62-year-old male, somnolent. HEENT: Pupils are equal, round, and reactive to light and accommodation. Extraocular muscles are intact. No scleral icterus. No conjunctival injection. Nares patent. OP is clear. No oral mucosa trauma or lacerations noted. NECK: Supple. No cervical adenopathy. No thyromegaly. No carotid bruits. No JVD appreciated. Cervical spine with full passive range of motion. No meningeal signs noted. CHEST: Lungs are clear to auscultation bilaterally. CARDIOVASCULAR: S1 and S2 without noted murmur, rub, or gallop. ABDOMEN: Rounded, soft, nontender, and nondistended. Bowel sounds are positive in all 4 quadrants. There is no hepatosplenomegaly. No abdominal bruits. No rebound or guarding appreciated. EXTREMITIES: Warm and dry with fair turgor. No clubbing, cyanosis, or asymmetric edema appreciated. Pulses are palpable distally at the dorsalis pedis, posterior tibial, and popliteal arteries bilaterally. Capillary refill less than 2 seconds. NEUROLOGIC: Somnolent. Left hemiparesis noted. Intermittent tonic-clonic movements noted of the neck and right shoulder and right upper extremity. Not observed ambulatory during this exam. PERTINENT LAB AND X-RAY FINDINGS: Complete metabolic profile within normal limits. CBC showed a white blood cell count 7.3, hemoglobin 14, hematocrit 41, MCV 100, and platelet count 210 with 80% neutrophils. Portable chest x-ray dated 07/09/2018, by my review shows no acute cardiopulmonary process. CT of the brain without contrast dated 07/09/2018, showed no acute intracranial process. Remote ischemic changes noted. Telemetry monitoring shows sinus mechanism with heart rates in the 70s. ASSESSMENT AND PLAN: 1. Recurrent seizures. The patient will be admitted to the stroke unit. Continue Keppra 1000 mg IV b.i.d. Check prolactin level, TSH, and Keppra level. Consult Neurology for further assistance and management. Last EEG performed 04/18/2018 showed no focal seizures. Ativan 2 mg IV q.50 minutes p.r.n. seizure activity. Continue intravenous normal saline 100 mL/h. 2. Hypertension. We will hold home blood pressure regimen due to postictal state. Hydralazine IV p.r.n. systolic greater than or equal to 180. 3. Cerebrovascular accident with left hemiparesis. Chronic. No evidence to suggest acute process. PT/OT evaluation in the a.m. for functional assessment. Continue aspirin 81 mg daily when tolerating oral intake. 4. Tobacco use. We will offer smoking cessation resources prior to discharge. 5. Prophylaxis. Sequential compression devices while in bed. Pepcid 20 mg IV b.i.d. General seizure precautions. 6. Code status is full. Surrogate medical decision maker is the patient's . Job ID: [id number]
[2018-07-09 18:30] LABS: Bilirubin Negative (Negative); Blood, Urine Negative (Negative); Clarity CLEAR (Clear); Glucose, Urine (Dipstick) Negative (Negative); Leukocyte Negative (Negative); Nitrite Negative (Negative); Protein, Urine (Dipstick) Negative (Neg-Trace); Specific Gravity, Urine 1.008 (1.002-1.036)
[2018-07-09 18:31] LABS: Bacteria/HPF None Seen HPF (None Seen); Hyaline Casts/LPF 0-3 HYALINE CAST LPF (0-3 Hyaline); RBC/HPF 0-3 HPF (0-3); Squamous Epithelial None Seen HPF (0-3); WBC/HPF 0-3 HPF (0-3)
[2018-07-09 18:33] LABS: Urine Culture Reflex No No
--- NOTE | 2018-07-09 19:40 | PDOC.EVN ---
Event Note - Event Note Event Note: Called by RN due to patient with indigestion and mild headache. Also with twitching of right arm. Seen by Dr. Jacobson today and ativan prn ordered for seizure like activity. CT Head done to day was negative. Trop neg x 3. HR 60s. Will obtain EKG to check for dynamic changes. Otherwise ok to proceed with Pepcid and Zofran ODT. Ativan as per Dr. Jacobson. BP 108/77, no vision or speech changes. No severe BILLS. Continue to monitor.
[2018-07-09] MEDS ORDERED: Atorvastatin Calcium 10 MG TAB PO SCH (21:00)
[2018-07-09] MEDS ORDERED: Aspirin Chewable 81 MG TAB PO SCH (21:00)
[2018-07-09] MEDS: Carvedilol 3.125 MG TAB PO SCH (21:08)
[2018-07-09] MEDS: levETIRAcetam In NaCl (Iso-Os) 1,000 MG in Premix Bag 1 BAG IVPB SCH (21:09)
[2018-07-09] MEDS: Famotidine/PF 20 mg/2ml Vial SLOW IVP SCH (21:09)
[2018-07-10] MEDS: Sodium Chloride 0.9% 1,000 ML IV SCH ×2 (00:34→10:57)
[2018-07-10 05:53] LABS: Band 2 % (5-11); Elliptocytes SLIGHT = 2-5 cells (100X) (0-1/hpf); Eosinophils 2 % (0-10); Hemoglobin 12.2 g/dL (14.0-18.0); Hypochromia SLIGHT = 6-15 cells (100X) (0-5/hpf); Lymphocytes 23 % (21-51); MDiff Complete? YES; Mean Corpuscular HGB CONC 33.9 g/dL (32.0-36.0); Mean Corpuscular Hemoglobin 34.2 pg (27.0-31.0); Monocytes 6 % (0-10); Neutrophil 64 % (42-75); Platelet Count 191 thou/uL (130-400); Platelet Morphology Comment Appears Adequate; RBC Distribution Width 11.9 % (11.5-14.5); Reactive Lymphocytes 3 % (0-10); Red Blood Cell (RBC) Count 3.57 mill/uL (4.70-6.10); White Blood Cell (WBC) Count 4.9 thou/uL (4.8-10.8)
[2018-07-10 05:54] LABS: ALT (SGPT) 7 U/L (8-55); AST (SGOT) 12 U/L (5-34); Albumin 3.6 g/dL (3.4-4.8); Alkaline Phosphatase 63 U/L (40-150); Anion Gap 14 mmol/L (10-20); BUN (Urea Nitrogen) 9 mg/dL (8.4-25.7); Bilirubin, Total 1.5 mg/dL (0.2-1.2); Calc. Creatinine Clearance 95 mL/min (70-130); Calcium 9.6 mg/dL (7.8-10.44); Carbon Dioxide 24 mmol/L (23-31); Chloride 105 mmol/L (98-107); Estimated GFR-MDRD Greater than 90; Globulin 2.4 g/dL (2.4-3.5); Glucose 93 mg/dL (80-115); Magnesium 1.8 mg/dL (1.6-2.6); Potassium 3.9 mmol/L (3.5-5.1); Sodium 139 mmol/L (136-145)
[2018-07-10 08:00] VITALS: TEMP 97.1
[2018-07-10] MEDS: Carvedilol 3.125 MG TAB PO SCH (08:11)
[2018-07-10] MEDS: Famotidine/PF 20 mg/2ml Vial SLOW IVP SCH (08:11)
[2018-07-10 08:32] VITALS: BP 117/80
[2018-07-10] MEDS: levETIRAcetam In NaCl (Iso-Os) 1,000 MG in Premix Bag 1 BAG IVPB SCH (09:00)
--- NOTE | 2018-07-10 10:38 | CON ---
DATE OF CONSULTATION: 07/10/2018 CONSULTING PHYSICIAN: Hospitalist Service. IMPRESSION: Recurrent seizures. PLAN: 1. Increase Keppra to 1000 mg twice a day. 2. [facility]. HISTORY OF PRESENT ILLNESS: Mr. Medel is a pleasant 62-year-old male with a past history of a prior right MCA stroke with left hemiparesis, hypertension, hyperlipidemia, tobacco use, and epilepsy. [facility] due to recurrent generalized tonic-clonic seizures. He was given 1000 mg loading dose in the emergency room along with Ativan 2 mg. at this point, he complains of a low-grade headache, but otherwise feels like he is back to his baseline. PAST MEDICAL HISTORY: As listed above. ALLERGIES: NONE REPORTED. SOCIAL HISTORY: Prior tobacco use. MEDICATIONS: Medication list was reviewed. FAMILY HISTORY: Hypertension. REVIEW OF SYSTEMS: Ten system review of systems is otherwise negative. PHYSICAL EXAMINATION: GENERAL: He is a well-nourished, middle-aged man, lying in bed, in no acute distress. VITAL SIGNS: Blood pressure 115/73, pulse 73, respirations 13, and temperature 98. HEENT: Pupils are equal and reactive. Conjunctivae are clear. Cranium, normocephalic and atraumatic. NECK: Supple. No lymphadenopathy noted. EXTREMITIES: No cyanosis present. NEUROLOGIC: He is alert and appropriate. His speech is fluent and clear. He has subtle left facial droop and a dense left hemiparesis present. Gait was not tested. No abnormal movements were seen. IMAGING: Reviewed. LABORATORY STUDIES: Unremarkable CBC and serum chemistry. Keppra level was 14. Mr. Medel suffered a breakthrough seizure. His level of Keppra was on the low end of the spectrum. I would go ahead and double his dose and he would appear to be stable at this point and transferred back to the [facility] at your discretion. Job ID: [id number]
[2018-07-10] MEDS ORDERED: levETIRAcetam 500 MG TAB PO SCH (21:00)
--- NOTE | 2018-07-10 21:22 | DIS ---
DATE OF ADMISSION: 07/09/2018 DATE OF DISCHARGE: 07/10/2018 DISCHARGE DIAGNOSES: 1. Recurrent seizures. 2. Hypertension, stable. 3. Cerebrovascular accident with left hemiparesis, chronic. 4. Tobacco abuse. CONSULTATIONS: Dr. Rick with Neurology Service. PERTINENT LAB AND X-RAY FINDINGS: Basic metabolic profile within normal limits. Troponin I negative x3. Prolactin level 7.99. TSH 1.70. CBC showed hemoglobin ranging between 12.2 to 13.8. MCV 101. Keppra level 14.1 on 07/09/2018. CT of the brain without contrast dated 07/09/2018, showed no acute intracranial process. Portable chest x-ray dated 07/09/2018 showed no acute cardiopulmonary process. HOSPITAL COURSE: The patient was observed on the stroke unit after presenting with breakthrough seizures in the context of known seizure disorder, on chronic Keppra 500 mg b.i.d. The patient was treated with Ativan in addition to increasing Keppra 1000 mg b.i.d. The patient was clinically stabilized with the increased Keppra dosing and evaluated by the Neurology Service, who also recommended increasing the Keppra to 1000 mg b.i.d. level. The patient remained clinically stable under observation with telemetry monitoring showing sinus mechanism without acute arrhythmia or dysrhythmia. Metabolic screening was essentially unremarkable and the patient did remain clinically stable. I have examined the patient at the time of discharge and discussed followup instructions. The patient verbalized understanding and agreement ready for discharge on 07/10/2018. DISCHARGE MEDICATIONS: 1. Finasteride 5 mg p.o. daily. 2. Proctofoam one application topically t.i.d. p.r.n. 3. Cyclobenzaprine 5 mg p.o. t.i.d. p.r.n. muscle spasms. 4. Enteric-coated aspirin 81 mg p.o. daily. 5. Lipitor 10 mg p.o. at bedtime. 6. Coreg 3.125 mg p.o. b.i.d. 7. Keppra 1000 mg p.o. b.i.d. FOLLOWUP: The patient may follow up with Dr. Betancur at [facility]. CONDITION ON DISCHARGE: Stable. ACTIVITY: Ad-josie. DIET: Heart healthy. CODE STATUS: Full. DISPOSITION: Discharged to [facility], where patient is a current resident, 07/10/2018. Job ID: [id number]
== END 2018-07-10 11:10 | DRG 101 ==
LOC: ERS 08:37 → OBSVTOIN 11:41 → 2SE 11:41
PROVIDERS: ADMIT Family Medicine; ATTEND Family Medicine
DX: G40.909 Epilepsy, unspecified, not intractable, without status epilepticus (principal); I69.354 Hemiplegia and hemiparesis following cerebral infarction affecting left non-dominant side; I10 Essential (primary) hypertension; E78.5 Hyperlipidemia, unspecified; F17.210 Nicotine dependence, cigarettes, uncomplicated; R51 Headache; Z79.82 Long term (current) use of aspirin; Z79.899 Other long term (current) drug therapy
CPT/HCPCS: 36415; 36416; 70450; 71045; 80053; 80177; 81001; 83735; 84146; 84443; 84484; 85007; 85025; 85027; 85730; 93005; 93010; 96365; 96374; 96375; J1953; J2060; S0028

== ENCOUNTER 2018-07-26 05:15 | Emergency (ER) | payer OTHER ==
[2018-07-26 06:08] LABS: Bilirubin Negative (Negative); Blood, Urine Small (Negative); Clarity CLEAR (Clear); Glucose, Urine (Dipstick) Negative (Negative); Leukocyte Negative (Negative); Nitrite Negative (Negative); Protein, Urine (Dipstick) Negative (Neg-Trace); Specific Gravity, Urine 1.013 (1.002-1.036); Urobilinogen 0.2 mg/dL (0.2-1.0); pH, Urine 6.5 (5.0-9.0)
[2018-07-26 06:11] LABS: Bacteria/HPF None Seen HPF (None Seen); Hyaline Casts/LPF 0-3 HYALINE CAST LPF (0-3 Hyaline); Pathc Cast-AUWi Flag 0.13 (0-2.49); Squamous Epithelial 0-3 HPF (0-3); WBC/HPF 0-3 HPF (0-3)
[2018-07-26 06:44] LABS: Anion Gap 12 mmol/L (10-20); BUN (Urea Nitrogen) 7 mg/dL (8.4-25.7); Calc. Creatinine Clearance 0 mL/min (70-130); Calcium 9.8 mg/dL (7.8-10.44); Carbon Dioxide 28 mmol/L (23-31); Chloride 103 mmol/L (98-107); Estimated GFR-MDRD Greater than 90; Glucose 108 mg/dL (80-115); Potassium 3.6 mmol/L (3.5-5.1); Sodium 139 mmol/L (136-145)
== END 2018-07-26 09:08 | disposition home or self-care (01) ==
LOC: ERS 05:15
DX: R33.9 Retention of urine, unspecified (principal); I10 Essential (primary) hypertension; I72.9 Aneurysm of unspecified site; E78.5 Hyperlipidemia, unspecified; F17.210 Nicotine dependence, cigarettes, uncomplicated; Z71.6 Tobacco abuse counseling; Z79.899 Other long term (current) drug therapy; Z79.82 Long term (current) use of aspirin; Z86.73 Personal history of transient ischemic attack (TIA), and cerebral infarction without residual deficits
CPT/HCPCS: 36415; 51702; 80048; 81003; 81015; 87086; 99406

== ENCOUNTER 2018-09-08 13:06 | Emergency (ER) | payer OTHER ==
--- NOTE | 2018-09-08 13:48 | RAD ---
RADIOGRAPH CHEST 1 VIEW: DATE: 09/08/2018 HISTORY: 62-year-old male with acute chest pain FINDINGS: There are no airspace densities, pulmonary edema, pneumothorax, or cardiomegaly. The lateral costophr enic angles are sharp. IMPRESSION: No acute cardiopulmonary findings.
--- NOTE | 2018-09-08 14:45 | CT ---
CT BRAIN NONCONTRAST: DATE: 09/08/2018 HISTORY: 62-year-old male with headache COMPARISON: 07/09/2018 and 04/17/2018. FINDINGS: There is no evidence of acute intra-axial or extra-axial hemorrhage. There is no midline shift or any other mass effect. There is no extra-axial fluid collection. There is no evidence of obstructive hydrocephalus. Calvarium is intact. Large stress region of encephalomalacia and gliosis contiguously involving right temporal, parietal, occipital, and frontal lobes. Moderately large region of encephalomalacia and gliosis involving inferior aspect of left cerebellar hemisphere. No interval samia nge overall. No gross opacification of visualized portions of paranasal sinuses and bilateral tympanomastoid cavities. IMPRESSION: 1. No acute intracranial findings. 2. Large old infarction involving right middle cerebral artery territory. 3. Moderately large old infarction involving left posterior-inferior cerebellar artery territory.
--- NOTE | 2018-09-10 20:38 | EKG ---
Test Reason : Blood Pressure : / mmHG Vent. Rate : 072 BPM Atrial Rate : 072 BPM P-R Int : 150 ms QRS Dur : 088 ms QT Int : 388 ms P-R-T Axes : 100 073 064 degrees QTc Int : 424 ms Normal sinus rhythm Voltage criteria for left ventricular hypertrophy Abnormal ECG Confirmed by OMKAR ALONSO, PACHECO Bahena ([id number]), news video editor TAI MAYEN ([id number]) on 09/10/2018 8:38:37 PM Referred By: Confirmed By:PACHECO ESPITIA MD
== END 2018-09-08 15:54 ==
LOC: ERS 13:06
DX: R51 Headache (principal); F32.9 Major depressive disorder, single episode, unspecified; F17.210 Nicotine dependence, cigarettes, uncomplicated
CPT/HCPCS: 70450; 71045; 93005

== ENCOUNTER 2018-09-25 15:56 | Emergency (ER) | payer OTHER | END 2018-09-25 18:31 | LOC: ERS 15:56 | DX: T83.021A Displacement of indwelling urethral catheter, initial encounter (principal); I10 Essential (primary) hypertension; F17.200 Nicotine dependence, unspecified, uncomplicated | CPT/HCPCS: 51702 ==

== ENCOUNTER 2018-10-25 05:45 | Emergency (ER) | payer OTHER ==
--- NOTE | 2018-10-25 08:35 | CT ---
NONCONTRAST ABDOMEN AND PELVIS CT: INDICATION: Abdominal pain. FINDINGS: There is a prominent-sized cystic hypodensity at the superior pole of the right kidney, incompletely characterized by noncontrast imaging. Punctate, nonobstructive nephrolithiasis is seen on the left. Imaged lung bases reveal no acute process. No pneumoperitoneum or significant ascites. There is fo araceli aneurysmal dilatation of the infrarenal abdominal aorta, measuring 3.1 cm in diameter. Scattered vascular disease is present. There is an indwelling Garner catheter within the urinary bladder. The re is prominence and heterogeneity of the adjacent prostate gland, incompletely assessed on the basis of this exam. Scattered osseous degenerative change present. IMPRESSION: 1. Nonobstructive left nephrolithiasis. 2. Prominent-sized cyst of right kidney incompletely evaluated by noncontrast imaging. 3. Aneurysmal dilatation of infrarenal abdominal aorta. 4. Enlarged, heterogeneous prostate gland with indwelling urinary catheter present. POS: HAYDEK
[2018-10-25 09:09] LABS: Bilirubin Negative (Negative); Blood, Urine Large (Negative); Glucose, Urine (Dipstick) Negative (Negative); Leukocyte Small (Negative); Nitrite Negative (Negative); Protein, Urine (Dipstick) 100 mg/dL (Neg-Trace)
[2018-10-25 09:27] LABS: Squamous Epithelial 0-3 HPF (0-3)
[2018-10-25 09:28] LABS: Bacteria/HPF 1+ HPF (None Seen)
[2018-10-25 09:29] LABS: Other Microscopic Description Less than 2 mL rec'd
== END 2018-10-25 09:13 | disposition home or self-care (01) ==
LOC: ERS 05:45
DX: T83.031A Leakage of indwelling urethral catheter, initial encounter (principal); N40.0 Benign prostatic hyperplasia without lower urinary tract symptoms; I10 Essential (primary) hypertension; Z86.73 Personal history of transient ischemic attack (TIA), and cerebral infarction without residual deficits; F17.200 Nicotine dependence, unspecified, uncomplicated; Z79.82 Long term (current) use of aspirin
CPT/HCPCS: 51703; 74176; 81003; 81015; 87086

== ENCOUNTER 2018-12-06 16:19 | Emergency (ER) | payer OTHER ==
[2018-12-06 17:21] LABS: Bacteria/HPF 4+ HPF (None Seen); Bilirubin 2+ (Negative); Blood, Urine 2+ (Negative); Clarity Turbid (Clear); Glucose, Urine (Dipstick) Normal (Negative); Leukocyte 500 Leu/uL (Negative); Nitrite 2+ (Negative); Protein, Urine (Dipstick) 200 mg/dL (Neg-Trace); RBC/HPF Greater than 50 HPF (0-3); Squamous Epithelial None Seen HPF (0-3); Urobilinogen 6 mg/dL (Less than 2); WBC/HPF Greater than 50 HPF (0-3)
[2018-12-06] MEDS ORDERED: Ciprofloxacin 500 MG TAB ONE (18:23)
== END 2018-12-06 19:50 | disposition home or self-care (01) ==
LOC: ERS 16:19
DX: N30.00 Acute cystitis without hematuria (principal); I10 Essential (primary) hypertension; N40.0 Benign prostatic hyperplasia without lower urinary tract symptoms; E78.5 Hyperlipidemia, unspecified; F32.9 Major depressive disorder, single episode, unspecified; F17.210 Nicotine dependence, cigarettes, uncomplicated; Z79.82 Long term (current) use of aspirin; Z79.899 Other long term (current) drug therapy; Z86.73 Personal history of transient ischemic attack (TIA), and cerebral infarction without residual deficits
CPT/HCPCS: 81003; 81015; 87077; 87086; 87186; 99283

== ENCOUNTER 2018-12-08 13:45 | Emergency (ER) | payer OTHER | END 2018-12-08 16:15 | disposition home or self-care (01) | LOC: ERS 13:45 | DX: R45.1 Restlessness and agitation (principal); I10 Essential (primary) hypertension; N40.0 Benign prostatic hyperplasia without lower urinary tract symptoms; E78.5 Hyperlipidemia, unspecified; F32.9 Major depressive disorder, single episode, unspecified; F17.210 Nicotine dependence, cigarettes, uncomplicated; Z86.73 Personal history of transient ischemic attack (TIA), and cerebral infarction without residual deficits | CPT/HCPCS: 99285 ==

== ENCOUNTER 2018-12-08 18:36 | Observation (INO) | payer OTHER ==
[2018-12-08] MEDS ORDERED: Haloperidol 5 MG TAB PO SCH (20:15)
[2018-12-08 22:14] LABS: #Eosinphils 0.3 thou/uL (0.0-0.7); #Lymphocytes 1.2 thou/uL (1.20-3.40); #Monocytes 0.4 thou/uL (0.11-0.59); #Neutrophils 7.2 thou/uL (1.40-6.50); %Basophils 0.2 % (0.0-1.0); %Eosinophils 3.1 % (0.0-10.0); %Lymphocytes 13.6 % (21.0-51.0); %Monocytes 4.4 % (0.0-10.0); %Neutrophils 78.7 % (42.0-75.0); Hemoglobin 12.2 g/dL (14.0-18.0); Mean Corpuscular HGB CONC 33.7 g/dL (32.0-36.0); Mean Corpuscular Hemoglobin 32.9 pg (27.0-31.0); Mean Corpuscular Volume 97.6 fL (78.0-98.0); Mean Platelet Volume 6.8 fL (7.4-10.4); Platelet Count 204 thou/uL (130-400); RBC Distribution Width 12.2 % (11.5-14.5); White Blood Cell (WBC) Count 9.1 thou/uL (4.8-10.8)
[2018-12-08 22:35] LABS: ALT (SGPT) 77 U/L (8-55); AST (SGOT) 30 U/L (5-34); Albumin 4.1 g/dL (3.4-4.8); Alkaline Phosphatase 87 U/L (40-110); Anion Gap 14 mmol/L (10-20); BUN (Urea Nitrogen) 10 mg/dL (8.4-25.7); Calc. Creatinine Clearance 0 mL/min (70-130); Calcium 9.7 mg/dL (7.8-10.44); Carbon Dioxide 26 mmol/L (23-31); Chloride 102 mmol/L (98-107); Estimated GFR-MDRD 89; Glucose 105 mg/dL (80-115); Potassium 3.8 mmol/L (3.5-5.1); Protein, Total 7.1 g/dL (5.8-8.1); Sodium 138 mmol/L (136-145)
[2018-12-08] MEDS ORDERED: Ondansetron ODT 4 MG TAB SL PRN (23:41)
[2018-12-08] MEDS ORDERED: Acetaminophen 325 MG TAB PO PRN (23:41)
[2018-12-08] MEDS ORDERED: Ondansetron PF 4 MG/2 ML Vial IVP PRN (23:41)
[2018-12-09] MEDS: Lorazepam 1 MG TAB PO PRN ×2 (00:24→05:02)
[2018-12-09] MEDS ORDERED: Senokot S 8.6-50 MG TAB PO PRN (01:25)
[2018-12-09] MEDS ORDERED: Acetaminophen 325 MG TAB PO PRN (01:25)
[2018-12-09 01:29] VITALS: BMI 24.5
--- NOTE | 2018-12-09 02:38 | HP ---
PRIMARY CARE PHYSICIAN: Dr. Brennan. CHIEF COMPLAINT: Bladder spasms, seeking a new place to live. HISTORY OF PRESENT ILLNESS: Mr. Medel is a 63-year-old man, who reported to the emergency room today for catheter pain. He is a resident of [facility], but reports that he does not want to live there anymore because they will not let him smoke. Reports that he has a UTI, has a urinary catheter due to BPH and is scheduled to have a TURP next week by Dr. Lozada. He reports that he has some paralysis in the left side from a previous stroke four months ago. He is able to transfer himself with assistance with his wheelchair. He denied any HI or SI in the emergency room. When the ER called [facility] to get some more history, they report that he is unhappy there and they had been working on getting him additional placement and had arranged for him to go to [facility] in [place]. The ER had [facility] come pick him up and evidently on the way there, he started becoming more agitated and so they turned around and brought him back to the emergency room. [facility] reports that they are not going to take him back and patient refusing to go to the new [place] health care facility and so it was decided by warehouse person ER physician that he would be admitted overnight and that we would consult Case Management for further placement recommendations. Patient has been on antibiotics for UTI. The last time we have in the system was from 12/06/2018 which showed turbid, blood, nitrite, bilirubin 2+, 500 leukocyte esterase, white blood cell count greater than 50, bacteria +4 with culture and sensitivity coming back with Pseudomonas and it was sensitive to Cipro. HOME MEDICATIONS: Currently, do not have any antibiotics listed. Patient is specifically on cefdinir, but that is not within this culture and sensitivity panel. Patient admitted to the medical floor for further management. REVIEW OF SYSTEMS: Bladder spasms, general agitation. All other systems are reviewed and are negative unless mentioned in the HPI. PAST MEDICAL HISTORY: Pertinent for UTI, BPH, chronic Garner catheter, hypertension, stroke in February of 2018, aneurysm on the right side of his brain, left hemiparalysis, hemorrhoids, hyperlipidemia, left-sided hemiplegia from previous stroke, subluxation of left shoulder joint, muscle wasting and atrophy on the left side, history of sepsis and constipation. PAST SURGICAL HISTORY: None. PSYCH HISTORY: Major depressive disorder, restlessness, and agitation. SOCIAL HISTORY: Lives in a long-term care facility. Last one was [facility], which is where he came to the ER from on 12/08/2018. Currently, he uses tobacco. Denies any alcohol use or drug use. ALLERGIES: NONE. CURRENT MEDICATIONS: 1. Cefdinir 300 mg one capsule p.o. t.i.d. 2. Cyclobenzaprine 5 mg p.o. t.i.d. 3. Atorvastatin 20 mg p.o. once a day at bedtime. 4. Coreg 3.125 mg p.o. b.i.d. 5. Flomax 0.4 mg p.o. two times a day. 6. Keppra 1000 mg p.o. b.i.d. 7. Finasteride 5 mg p.o. once a day. 8. Sertraline 150 mg p.o. in the morning. PHYSICAL EXAMINATION: VITAL SIGNS: Blood pressure 115/84, pulse is 93, respirations 16, temp is 98.9, and PO2 sats are 99% on room air. CONSTITUTIONAL: Patient appears nontoxic. He appears pain-free. He is alert and oriented to person, place, and time. HEENT: Head is atraumatic and normocephalic. Eyes; eyelids normal to inspection. Pupils equally round and reactive to light. ENT; mouth exam is normal. Mucous membranes are moist. NECK: Normal range of motion. Trachea is midline. RESPIRATORY: Chest movement is symmetrical. Chest expansion is equal. Breath sounds are clear. CARDIOVASCULAR: Regular rate and rhythm. Heart sounds are normal. : Male Garner catheter in place draining cloudy yellow urine. NEUROLOGIC: Oriented to person, place, and time. Left hemiparesis. PSYCH: Oriented to person, place, and time. Normal affect. LABORATORY DATA: EKG in the emergency room shows beats per minute 93, normal sinus rhythm. ST segments normal. T-waves normal. PLAN/ASSESSMENT: 1. In need of placement in long-term care facility. [facility] states he cannot return there. Patient is refusing to go to new facility [facility] in [place]. We will need Case Management assistance with new placement. 2. Recurrent urinary tract infections. Indwelling catheter for BPH. Patient has TURP scheduled with Dr. Kierra evidently next week. We will restart the Cipro 500 mg p.o. b.i.d. 3. History of hypertension. We will restart home medications. 4. Bladder spasms. Can restart the Flexeril. 5. History of dyslipidemia. Once reconciled, we will restart home medications. 6. Seizure disorder. Once reconciled, we will continue Keppra. 7. Deep venous thrombosis and gastrointestinal prophylaxis have been started. 8. Hospital course depended on clinical findings. Job ID: [id number]
[2018-12-09 05:12] LABS: #Eosinphils 0.2 thou/uL (0.0-0.7); #Lymphocytes 1.3 thou/uL (1.20-3.40); #Monocytes 0.4 thou/uL (0.11-0.59); #Neutrophils 7.2 thou/uL (1.40-6.50); %Basophils 0.2 % (0.0-1.0); %Eosinophils 1.8 % (0.0-10.0); %Lymphocytes 14.3 % (21.0-51.0); %Monocytes 4.6 % (0.0-10.0); %Neutrophils 79.1 % (42.0-75.0); Hemoglobin 12.3 g/dL (14.0-18.0); Mean Corpuscular HGB CONC 33.1 g/dL (32.0-36.0); Mean Corpuscular Hemoglobin 33.3 pg (27.0-31.0); Mean Platelet Volume 7.1 fL (7.4-10.4); Platelet Count 222 thou/uL (130-400); RBC Distribution Width 12.3 % (11.5-14.5); Red Blood Cell (RBC) Count 3.71 mill/uL (4.70-6.10); White Blood Cell (WBC) Count 9.1 thou/uL (4.8-10.8)
[2018-12-09 05:33] LABS: Anion Gap 16 mmol/L (10-20); BUN (Urea Nitrogen) 10 mg/dL (8.4-25.7); Calc. Creatinine Clearance 81 mL/min (70-130); Calcium 9.8 mg/dL (7.8-10.44); Carbon Dioxide 22 mmol/L (23-31); Chloride 103 mmol/L (98-107); Estimated GFR-MDRD Greater than 90; Glucose 100 mg/dL (80-115); Potassium 4.3 mmol/L (3.5-5.1); Sodium 137 mmol/L (136-145)
[2018-12-09] MEDS ORDERED: Ciprofloxacin 500 MG TAB PO SCH (06:00)
[2018-12-09] MEDS ORDERED: Famotidine 20 MG TAB PO SCH (09:00)
[2018-12-09] MEDS ORDERED: Enoxaparin Sodium 40 MG/0.4 ML SYRINGE SC SCH (09:00)
[2018-12-09 19:05] VITALS: BP 119/74; TEMP 97.1
[2018-12-09] MEDS ORDERED: FLU VACC QS2019-20(6MOS UP)/PF 60 MCG/0.5 ML SYRINGE IM ONE (21:00)
--- NOTE | 2018-12-09 22:42 | CON ---
DATE OF CONSULTATION: 12/09/2018 REASON FOR CONSULTATION: UTI and BPH with urinary retention. HISTORY OF PRESENT ILLNESS: Mr. Medel is a 63-year-old black male, who is well known to me for history of BPH with urinary retention. He has had failed void trials previously, although he has some retained ability to urinate. He cannot empty his bladder completely and has severe obstructive symptoms. We had previously discussed a TURP, which we had scheduled him for this . Unfortunately, he ended up in the hospital with agitation and consideration for urinary tract infection. He was previously on Keflex, which was started by his PCP as an outpatient empirically. Based on recent cultures, he is growing Pseudomonas, which is sensitive to ciprofloxacin. He has been changed to that and states he is feeling much better. His catheter has been draining without any issues. He otherwise states he is doing fine. PAST MEDICAL HISTORY: 1. Recurrent urinary tract infection. 2. BPH. 3. Urinary retention. 4. Hypertension. 5. CVA. 6. Brain aneurysm. 7. Hemorrhoids. 8. Hyperlipidemia. 9. Left shoulder subluxation. 10. Muscle atrophy and wasting on the left side. PAST SURGICAL HISTORY: None. FAMILY HISTORY: Noncontributory. SOCIAL HISTORY: Patient currently lives in at [facility]. He denies alcohol or illicit drug use. He does use tobacco products and continues to smoke. ALLERGIES: NONE. HOME MEDICATIONS: 1. Flexeril. 2. Atorvastatin. 3. Coreg. 4. Flomax. 5. Keppra. 6. Finasteride. 7. Sertraline. REVIEW OF SYSTEMS: A 12 point review of system was reviewed and negative. PHYSICAL EXAMINATION: VITAL SIGNS: Temperature 98.1, pulse 87, respirations 18, blood pressure 109/74, and saturation 94% on room air. GENERAL: No apparent distress, communicative and alert. CARDIOVASCULAR: Regular rate and rhythm. Normal S1, S2. Symmetric pulses. HEENT: Normocephalic, atraumatic. Pupils are symmetric and round. Moist mucous membranes. Trachea midline. CHEST: No increased work of breathing. Nonlabored, symmetric expansion of lungs. ABDOMEN: Soft, nontender, and nondistended. Positive bowel sounds. No organomegaly. No hernias. GENITOURINARY: Garner catheter in place, draining clear yellow urine which is secured. EXTREMITIES: No clubbing, cyanosis, or edema. MUSCULOSKELETAL: No joint deformity or joint erythema noted. There is some muscle wasting on the right side. NEUROLOGIC: Cranial nerves 2 through 12 appear grossly intact. There is a left hemiparesis secondary to his prior known history of CVA. PSYCHIATRIC: Alert and oriented x3. Appropriate mood and affect. SKIN: Warm and dry. No rash or lesions. Good turgor. LYMPHS: No cervical, axillary, supraclavicular, or inguinal lymphadenopathy. LABORATORY EVALUATION: The full set of labs are in the [facility] system, which I have reviewed. Of note, the patient's white count is 9.1, hemoglobin 12.3, platelet count of 222, creatinine is 1.01. Urine culture from December 06 demonstrates Pseudomonas sensitive to fluoroquinolones, which he is currently on Cipro. ASSESSMENT AND PLAN: A 63-year-old black male with history of cerebrovascular accident and left hemiparesis with urinary retention secondary to benign prostatic hypertrophy with some retained bladder contractility. We have previously discussed transurethral resection of the prostate as an outpatient. I have gone over the entire surgery with him at that time. He still wishes to proceed forward. Recommend continuing ciprofloxacin until the date of his surgery. He needs to stay off his aspirin, which he does take at home, but has discontinued recently secondary to my instructions in preparation for surgery. He can stay on Lovenox while in the hospital. The Lovenox should be discontinued 24 hours prior to his surgery date. I think it would be reasonable for the patient to stay in the hospital until a surgical date, if that is feasible, but if the patient must be discharged that can be arranged and the patient will need to be brought back on . Main concern would be adherence to proper medical regimen, if he is at his assisted or nursing facility, especially if he is accidentally given aspirin which there have been issues with medical administrations of [place] in the past with this patient. I will continue to follow along and make any recommendations as necessary. Otherwise, continue plan for Transurethral resection of the prostate scheduled . N.p.o. after midnight prior to surgery. Hold Lovenox 24 hours prior. Continue antibiotics until then. No long-term antiplatelets or anticoagulation otherwise. Job ID: [id number]
--- NOTE | 2018-12-10 09:54 | EKG ---
Test Reason : Blood Pressure : / mmHG Vent. Rate : 093 BPM Atrial Rate : 093 BPM P-R Int : 176 ms QRS Dur : 088 ms QT Int : 362 ms P-R-T Axes : 084 075 075 degrees QTc Int : 450 ms Normal sinus rhythm Normal ECG Confirmed by MESHA GALINDO D.O. ([id number]), continuity editor TAI MAYEN ([id number]) on 12/10/2018 9:53:34 AM Referred By: Confirmed By:MESHA GALINDO D.O.
--- NOTE | 2018-12-12 08:48 | DIS ---
DATE OF ADMISSION: 12/08/2018 DATE OF DISCHARGE: 12/09/2018 DISCHARGE DISPOSITION: The patient will return to [facility]. ALLERGIES: NO KNOWN DRUG ALLERGIES. DISCHARGE MEDICATION: Ciprofloxacin 500 mg b.i.d. for 1 week. All other home medications were left unchanged. BRIEF HOSPITAL COURSE: The patient is a 63-year-old male with chronic indwelling Garner catheter. Plan for TURP next week, presented to the hospital requesting new living arrangement. He was transitioning from [facility] to a different facility in [place]. The patient refused to go to [facility] in [place]. He got agitated and was brought in to the emergency room by EMS. The patient was monitored on the medical floor. He now agrees to go back to [facility]. He will follow up with Dr. Lozada as outpatient for TURP. His recent urine culture from 06 December showed Pseudomonas. For this reason, he was started on ciprofloxacin. Please note that I did not receive a list of medication from [facility]. It is unclear what medication he is on. Primary care physician is advised to follow up and update his medications. FINAL DIAGNOSES: 1. Agitation, resolved without any intervention. 2. Recent Pseudomonas urinary tract infection. 3. Chronic urinary retention requiring Garner catheter. 4. Hypertension. 5. Dyslipidemia. 6. Seizure disorder. 7. Chronic anemia. PLAN: Plan was discussed with the patient in detail. He stated understanding. Job ID: [id number]
== END 2018-12-09 18:48 ==
LOC: ERS 18:36 → T4-B 23:30
PROVIDERS: ADMIT Hospitalist; ATTEND Hospitalist
DX: R45.1 Restlessness and agitation (principal); N39.0 Urinary tract infection, site not specified; B96.5 Pseudomonas (aeruginosa) (mallei) (pseudomallei) as the cause of diseases classified elsewhere; N40.1 Benign prostatic hyperplasia with lower urinary tract symptoms; R33.8 Other retention of urine; N32.89 Other specified disorders of bladder; I10 Essential (primary) hypertension; E78.5 Hyperlipidemia, unspecified; G40.909 Epilepsy, unspecified, not intractable, without status epilepticus; F32.9 Major depressive disorder, single episode, unspecified; D64.9 Anemia, unspecified; F17.290 Nicotine dependence, other tobacco product, uncomplicated; I69.354 Hemiplegia and hemiparesis following cerebral infarction affecting left non-dominant side; Z79.899 Other long term (current) drug therapy
CPT/HCPCS: 36415; 51702; 80048; 80053; 85025; 93005; 96372; G0378; J1650

== ENCOUNTER 2018-12-15 08:57 | Observation (INO) | payer OTHER ==
[2018-12-15] MEDS ORDERED: Levofloxacin 500 mg/D5W 100 ml Premix Bag ONE (10:11)
[2018-12-15] MEDS ORDERED: Fentanyl 100 MCG/2 ML VIAL ONE ×2 (10:47→14:26)
[2018-12-15] MEDS ORDERED: Famotidine/PF 20 mg/2ml Vial ONE (10:47)
[2018-12-15 11:07] LABS: INR-International Normal Ratio 1.3; Prothrombin Time 15.7 SEC (12.0-14.7)
[2018-12-15 11:08] LABS: PTT 34.8 SEC (22.9-36.1)
[2018-12-15] MEDS ORDERED: EPINEPHrine 1 MG/ML AMP ONE (11:47)
[2018-12-15] MEDS ORDERED: Phenylephrine HCL 10 MG/ML VIAL ONE (11:47)
[2018-12-15] MEDS ORDERED: Oxybutynin 5 MG TAB PO PRN (12:30)
[2018-12-15] MEDS ORDERED: diphenhydrAMINE 25 MG CAP PO PRN (12:30)
[2018-12-15] MEDS ORDERED: hydrALAZINE 20 MG/ML VIAL SLOW IVP PRN (12:30)
[2018-12-15] MEDS ORDERED: Mag-Al 1200 mg/1200 mg/30 ML UDCUP PO PRN (12:30)
[2018-12-15] MEDS ORDERED: Bisacodyl 10 MG SUPP PR PRN (12:30)
[2018-12-15] MEDS ORDERED: Phenazopyridine HCl 97.5 MG TABLET PO PRN (12:30)
[2018-12-15] MEDS ORDERED: Morphine 2 MG/ML SYRINGE SLOW IVP PRN (12:30)
[2018-12-15] MEDS ORDERED: Ondansetron PF 4 MG/2 ML Vial IVP PRN (12:30)
[2018-12-15] MEDS ORDERED: Acetaminophen 500 MG TAB PO PRN (12:30)
[2018-12-15] MEDS ORDERED: Cyclobenzaprine 10 MG TAB PO PRN (12:32)
[2018-12-15] MEDS ORDERED: traMADol HCl 50 MG TAB PO PRN (12:33)
[2018-12-15] MEDS ORDERED: Promethazine HCl 25 MG/ML VIAL SLOW IVP PRN (12:53)
[2018-12-15] MEDS ORDERED: PACU-Morphine 4MG/ML VIAL SLOW IVP PRN (12:53)
[2018-12-15] MEDS ORDERED: Promethazine HCl 25 MG/ML VIAL IM PRN (12:53)
[2018-12-15] MEDS ORDERED: Oxybutynin 5 MG TAB ONE (14:26)
[2018-12-15] MEDS ORDERED: Phenazopyridine HCl 97.5 MG TABLET ONE (14:26)
--- NOTE | 2018-12-15 16:05 | OP ---
DATE OF PROCEDURE: 12/15/2018 SERVICE: Urology. PREOPERATIVE DIAGNOSIS: BPH with urinary retention. POSTOPERATIVE DIAGNOSIS: BPH with urinary retention. PROCEDURE PERFORMED: Transurethral resection of the prostate. INDICATION FOR PROCEDURE: Mr. Medel is a 63-year-old black male, who has BPH and significant urinary symptoms. He into urinary retention and has failed multiple voiding trials. He still has some preserved bladder contractility as he is able to urinate, but cannot empty his bladder properly and generally will go back into retention. As such, we have elected to go forward with transurethral resection of prostate. After all risks and benefits have been discussed, he has agreed to proceed forward. DESCRIPTION OF PROCEDURE: After identification of armband and verification of consent, the patient was brought back to the operating room, where he underwent general anesthesia with LMA. He was then placed in dorsal position, prepped and draped in usual sterile fashion. Appropriate time-out. A lubricated 26-Swiss resectoscope sheath with visual obturator was passed with ease through the urethra and into the bladder. There was bladder stone and loose debris within the bladder, which was irrigated out using the cystoscope and also with the resectoscope once this was switched out. The visual obturator was switched out for the bipolar prostate resectoscope loop. Once all the stone and debris had been cleared out from the bladder, attention was turned to the ureteral orifices, which were both identified and marked distal and medial to the actual ureteral orifice for easier identification. Resection was started out of the bladder neck and median lobe. This was shaved down until it was flushed with the bladder. Resection was then carried out circumferentially from the bladder neck to the verumontanum until the prostate was extremely wide open. Dissection was carried close to, but not to the capsule of prostate. Upon completion, the prostate was wide open. Meticulous hemostasis was performed and then all prostate chips evacuated through the resectoscope sheath with the PRUS[place] SL evacuator and also with the resectoscope. After looking back in, there were a few regular areas which were shaved down and those chips were then subsequently evacuated. No additional prostate chips were seen at the end and both ureters were in orthotopic location unharmed. Hemostasis once again performed and then the bladder was left full. The resectoscope removed. A 22-Swiss three-way Garner catheter was placed in the patient's bladder and 30 mL of sterile water placed into the balloon. CBI was initiated, and the patient was then awakened, taken to PACU for recovery in stable condition. COMPLICATIONS: None. ESTIMATED BLOOD LOSS: Minimal. RETAINED DRAINS: 22-Swiss three-way Garner catheter on CBI. SPECIMEN: Prostate chips. DISPOSITION: The patient will be kept in the hospital overnight for CBI. We will plan discharge in the morning, pending a void trial. Job ID: [id number]
[2018-12-15] MEDS ORDERED: Atorvastatin Calcium 10 MG TAB PO SCH (21:00)
[2018-12-15] MEDS: Carvedilol 3.125 MG TAB PO SCH (21:24)
[2018-12-15] MEDS: Docusate 100 MG CAP PO SCH (21:25)
[2018-12-15] MEDS: levETIRAcetam 500 MG TAB PO SCH (21:25)
[2018-12-16 05:34] LABS: #Eosinphils 0.2 thou/uL (0.0-0.7); #Lymphocytes 1.4 thou/uL (1.20-3.40); #Monocytes 0.4 thou/uL (0.11-0.59); %Basophils 0.4 % (0.0-1.0); %Eosinophils 3.6 % (0.0-10.0); %Lymphocytes 22.6 % (21.0-51.0); %Monocytes 6.1 % (0.0-10.0); %Neutrophils 67.3 % (42.0-75.0); Hemoglobin 11.7 g/dL (14.0-18.0); Mean Corpuscular HGB CONC 33.6 g/dL (32.0-36.0); Mean Corpuscular Hemoglobin 34.2 pg (27.0-31.0); Mean Platelet Volume 6.9 fL (7.4-10.4); Platelet Count 205 thou/uL (130-400); RBC Distribution Width 12.2 % (11.5-14.5); Red Blood Cell (RBC) Count 3.43 mill/uL (4.70-6.10)
[2018-12-16 05:53] LABS: Anion Gap 13 mmol/L (10-20); BUN (Urea Nitrogen) 9 mg/dL (8.4-25.7); Calc. Creatinine Clearance 75 mL/min (70-130); Calcium 8.9 mg/dL (7.8-10.44); Carbon Dioxide 24 mmol/L (23-31); Chloride 103 mmol/L (98-107); Estimated GFR-MDRD Greater than 90; Glucose 84 mg/dL (80-115); Potassium 4.1 mmol/L (3.5-5.1); Sodium 136 mmol/L (136-145)
[2018-12-16] MEDS: Carvedilol 3.125 MG TAB PO SCH (10:40)
[2018-12-16] MEDS: levETIRAcetam 500 MG TAB PO SCH (10:40)
[2018-12-16] MEDS: Docusate 100 MG CAP PO SCH (10:44)
[2018-12-16] MEDS ORDERED: FLU VACC QS2019-20(6MOS UP)/PF 60 MCG/0.5 ML SYRINGE IM ONE (12:30)
[2018-12-16 15:10] VITALS: BP 100/67; TEMP 98.7
--- NOTE | 2018-12-16 15:26 | PRG ---
DATE OF SERVICE: 12/16/2018 SUBJECTIVE: The patient states he is feeling great. He has no pain or bladder spasms. No chest pain or shortness of breath overnight. OBJECTIVE: VITAL SIGNS: Temperature 98.1, pulse 79, respirations 18, blood pressure 107/78, and saturation is 94% on room air. GENERAL: No apparent distress. Communicative and alert. CARDIOVASCULAR: Regular rate and rhythm. ABDOMEN: Soft, nontender, and nondistended. : Garner catheter in place, draining clear yellow urine, off CBI. There is no blood. EXTREMITIES: No clubbing, cyanosis, or edema. LABORATORY EVALUATION: The full set of labs are in the [facility] system, which I have reviewed. Of note, the patient's white count is 6, hemoglobin 11.7. Creatinine of 1.01. ASSESSMENT AND PLAN: A 63-year-old black male with transurethral resection of the prostate, postop day #1 for benign prostatic hypertrophy and urinary retention. We will take out his catheter and pending a void trial. If he is able to urinate, he can go home. I will see him 2 weeks for postop check. Job ID: [id number]
--- NOTE | 2018-12-19 11:55 | DIS ---
DATE OF ADMISSION: 12/15/2018 DATE OF DISCHARGE: 12/16/2018 DISCHARGING PHYSICIAN: Konrad Lozada MD ADMITTING DIAGNOSIS: Benign prostatic hyperplasia with urinary retention. DISCHARGE DIAGNOSIS: Benign prostatic hyperplasia with urinary retention. PROCEDURE PERFORMED WHILE INPATIENT: Transurethral resection of the prostate. BRIEF HISTORY: Mr. Medel is a 63-year-old black male with history of CVA and BPH with urinary retention. He has failed multiple void trials. He elected to have a TURP with all risks and benefits discussed. The full H and P can be found in the scanned portion of the [email or web address] System. HOSPITAL COURSE: After surgery (please see operative note for details), the patient was kept in the hospital overnight for postoperative care. His CBI was turned off in the morning. He had absolutely no bleeding in his urine. His catheter was removed and he was able to void successfully with only light blood in his urine. He felt good with no pain. He was discharged home after all of his discharge instructions were explained to him. DISPOSITION: Discharged back to [facility]. DISCHARGE CONDITION: Good. DISCHARGE MEDICATIONS: Resuming all of his home medications except his Flomax and finasteride, which he will stop. I have also asked him to stay off his aspirin for at least 7 days and then he may restart it if his urine is clear. FOLLOWUP: Followup will be in approximately 1 to 2 weeks. I have gone over all the discharge instructions with him. Job ID: [id number]
== END 2018-12-16 19:03 | disposition home or self-care (01) ==
LOC: SDC 08:57 → SURG B 12:30
PROVIDERS: ADMIT Urology; ATTEND Urology
PROC: 0VT08ZZ Resection of Prostate, Via Natural or Artificial Opening Endoscopic (ICD-10-PCS; principal; 2018-12-16)
PROC: 0VT30ZZ Resection of Bilateral Seminal Vesicles, Open Approach (ICD-10-PCS; 2018-12-16)
DX: N40.1 Benign prostatic hyperplasia with lower urinary tract symptoms (principal); R33.8 Other retention of urine; N41.0 Acute prostatitis; N41.1 Chronic prostatitis; Z86.73 Personal history of transient ischemic attack (TIA), and cerebral infarction without residual deficits
CPT/HCPCS: 36415; 80048; 85025; 85610; 85730; 88305; G0378; J0131; J0171; J1956; J2370; J3010; S0028

== ENCOUNTER 2019-02-21 14:43 | Emergency (ER) | payer OTHER ==
--- NOTE | 2019-02-21 15:34 | CT ---
Exam: Head CT without contrast HISTORY: Seizure COMPARISON: 09/08/2018 FINDINGS: Hemorrhage: No intraparenchymal hemorrhage or extra-axial hematoma. Brain parenchyma: Stable encephalomalacia involving the right cerebrum due to remote MCA distribution infarct. The remainder the cerebrum demonstrates cortical beckford-white matter differentiation. Stable volume loss due to remote insult of the left cerebellar hemisphere. Ventricular system: Ventricles and sulci are patent and symmetric. Calvarium: Intact. Sinuses and mastoid air cells: Adequate aeration. IMPRESSION: 1. No acute intracranial process. 2. Remote right MCA distribution infarct. 2. Remote left posterior inferior cerebellar artery infarct.
[2019-02-21 15:42] LABS: Bilirubin Negative (Negative); Blood, Urine 3+ (Negative); Clarity Turbid (Clear); Glucose, Urine (Dipstick) Normal (Negative); Leukocyte 500 Leu/uL (Negative); Nitrite Negative (Negative); Protein, Urine (Dipstick) 50 mg/dL (Neg-Trace); RBC/HPF Greater than 50 HPF (0-3); Squamous Epithelial None Seen HPF (0-3); Urobilinogen Normal mg/dL (Less than 2)
[2019-02-21 15:52] LABS: Bacteria/HPF None Seen HPF (None Seen)
[2019-02-21 16:05] LABS: #Basophils 0.1 thou/uL (0.0-0.2); #Eosinphils 0.3 thou/uL (0.0-0.7); #Lymphocytes 1.5 thou/uL (1.20-3.40); #Monocytes 0.4 thou/uL (0.11-0.59); #Neutrophils 4.3 thou/uL (1.40-6.50); %Basophils 1.2 % (0.0-1.0); %Eosinophils 4.7 % (0.0-10.0); %Lymphocytes 22.7 % (21.0-51.0); %Monocytes 6.4 % (0.0-10.0); %Neutrophils 65.1 % (42.0-75.0); Hemoglobin 14.4 g/dL (14.0-18.0); Mean Corpuscular HGB CONC 33.7 g/dL (32.0-36.0); Mean Corpuscular Volume 97.9 fL (78.0-98.0); Mean Platelet Volume 7.3 fL (7.4-10.4); Platelet Count 241 thou/uL (130-400); Red Blood Cell (RBC) Count 4.38 mill/uL (4.70-6.10); White Blood Cell (WBC) Count 6.5 thou/uL (4.8-10.8)
[2019-02-21 16:53] LABS: ALT (SGPT) 38 U/L (8-55); AST (SGOT) 31 U/L (5-34); Albumin 4.5 g/dL (3.4-4.8); Alkaline Phosphatase 94 U/L (40-110); Anion Gap 15 mmol/L (10-20); BUN (Urea Nitrogen) 11 mg/dL (8.4-25.7); Bilirubin, Total 0.8 mg/dL (0.2-1.2); Calc. Creatinine Clearance 0 mL/min (70-130); Calcium 9.9 mg/dL (7.8-10.44); Carbon Dioxide 26 mmol/L (23-31); Chloride 102 mmol/L (98-107); Estimated GFR-MDRD 86; Globulin 3.2 g/dL (2.4-3.5); Glucose 82 mg/dL (80-115); Protein, Total 7.7 g/dL (5.8-8.1); Sodium 138 mmol/L (136-145)
== END 2019-02-21 19:44 ==
LOC: ERS 14:43
DX: R56.9 Unspecified convulsions (principal); I10 Essential (primary) hypertension; E78.5 Hyperlipidemia, unspecified; F32.9 Major depressive disorder, single episode, unspecified; F17.210 Nicotine dependence, cigarettes, uncomplicated; Z79.899 Other long term (current) drug therapy; Z79.82 Long term (current) use of aspirin; Z86.73 Personal history of transient ischemic attack (TIA), and cerebral infarction without residual deficits
CPT/HCPCS: 36415; 70450; 80053; 81003; 81015; 84484; 85025; 93005; 96360; 96361

== ENCOUNTER 2019-03-21 15:36 | Emergency (ER) | payer OTHER ==
[2019-03-21 16:08] LABS: Bilirubin Small (Negative); Blood, Urine Large (Negative); Glucose, Urine (Dipstick) Negative (Negative); Leukocyte Small (Negative); Nitrite Negative (Negative); Protein, Urine (Dipstick) > or equal to 300 mg/dL (Neg-Trace)
[2019-03-21 16:09] LABS: Clarity Turbid (Clear)
[2019-03-21 16:20] LABS: RBC/HPF Greater than 50 HPF (0-3)
[2019-03-21 16:21] LABS: Bacteria/HPF Rare-Few HPF (None Seen); Squamous Epithelial 0-3 HPF (0-3); Transitional Epithelial 0-3 HPF (None Seen); Triple Phosphate Crystal 1+ HPF (None Seen)
== END 2019-03-21 17:59 | disposition home or self-care (01) ==
LOC: ERS 15:36
DX: R30.0 Dysuria (principal); I10 Essential (primary) hypertension; Z86.73 Personal history of transient ischemic attack (TIA), and cerebral infarction without residual deficits; E78.5 Hyperlipidemia, unspecified; F32.9 Major depressive disorder, single episode, unspecified; F17.200 Nicotine dependence, unspecified, uncomplicated; Z79.899 Other long term (current) drug therapy; Z79.82 Long term (current) use of aspirin
CPT/HCPCS: 81003; 81015; 99283

== ENCOUNTER 2019-04-10 05:40 | Day surgery (SDC) | payer OTHER ==
--- NOTE | 2019-04-10 08:56 | OP ---
DATE OF PROCEDURE: 04/10/2019 PROCEDURE PERFORMED: Colonoscopy (screening). INDICATIONS FOR PROCEDURE: Screening for malignant neoplasm of the colon, chronic constipation with a history of CVA, change in bowel habits. DESCRIPTION OF PROCEDURE: After the risks and benefits of the procedure were explained to the patient including risks of bleeding, infection, perforation, reactions to anesthesia, aspiration and/or pain, informed consent was obtained. The patient was then taken to the endoscopy suite, where he was maneuvered into the left lateral decubitus position, followed by administration of propofol via Anesthesia support. Once adequate sedation was achieved, a digital rectal examination was performed followed by introduction of the standard colonoscope, which was then advanced to the terminal ileum with mild difficulty, requiring manual abdominal pressure to facilitate passage of the scope. Initially, the quality of the prep was fair with a large amount of retained liquid stool, but converted to a good prep with aggressive irrigation and suctioning. The patient tolerated the procedure well with no immediate perioperative complications. Upon conclusion of the procedure, all equipment was removed from the patient and the patient was transferred to Day Stay in satisfactory condition. FINDINGS: Digital rectal exam: Normal findings were seen on external examination, however, a small polypoid lesion was palpated at the 10 o'clock position. Colon findings: Normal-appearing mucosa was seen within the terminal ileum as well as at the appendiceal orifice and ileocecal valve. Normal-appearing mucosa was then seen in the cecum, ascending colon, transverse colon, descending colon, sigmoid colon, and rectum. There was a mild darkening to the colonic mucosa seen throughout the entire colon in a mosaic-type pattern, indicative of probable melanosis. On rectal retroflexion, small internal hemorrhoids as well as large hypertrophied anal papillae were seen. IMPRESSION: 1. 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 2. Small internal hemorrhoids. 3. Large hypertrophied anal papillae. RECOMMENDATIONS: 1. We would continue patient on a high fiber diet and bowel regimen with stool softeners, but we would also start the patient on MiraLAX one capsule daily as part of his bowel regimen and chronic constipation (especially if the patient is on narcotics). 2. We would repeat the colonoscopy in 10 years as part of screening for malignant neoplasm of the colon (no family history of colon polyps, although mother was diagnosed with colon cancer in her 70s). 3. Follow up in the GI Clinic in 4 weeks for further management of his chronic constipation, likely secondary to neurogenic bowel. Job ID: [id number]
[2019-04-10] MEDS ORDERED: Lidocaine 1% PF 5 ML VIAL ONE (10:49)
[2019-04-10] MEDS ORDERED: PROPOFOL 200 MG/20 ML VIAL ONE (10:49)
== END 2019-04-10 09:05 | disposition home or self-care (01) ==
LOC: SDC 05:40
PROVIDERS: ATTEND Internal Medicine
PROC: 0DJD8ZZ Inspection of Lower Intestinal Tract, Via Natural or Artificial Opening Endoscopic (ICD-10-PCS; principal; 2019-04-10)
DX: K59.09 Other constipation (principal); K64.8 Other hemorrhoids; K62.89 Other specified diseases of anus and rectum; K63.89 Other specified diseases of intestine; I10 Essential (primary) hypertension; F32.9 Major depressive disorder, single episode, unspecified; Z86.73 Personal history of transient ischemic attack (TIA), and cerebral infarction without residual deficits; Z79.899 Other long term (current) drug therapy
CPT/HCPCS: J2001; J2704

== ENCOUNTER 2019-05-10 07:43 | Outpatient (CLI) | payer OTHER ==
[2019-05-10 12:35] LABS: Hemoglobin 14.1 g/dL (14.0-18.0); INR-International Normal Ratio 1.1; Mean Corpuscular HGB CONC 32.7 g/dL (32.0-36.0); Mean Corpuscular Hemoglobin 33.8 pg (27.0-31.0); Mean Platelet Volume 7.5 fL (7.4-10.4); PTT 31.6 SEC (22.9-36.1); Platelet Count 293 thou/uL (130-400); Prothrombin Time 14.4 SEC (12.0-14.7); RBC Distribution Width 11.9 % (11.5-14.5); Red Blood Cell (RBC) Count 4.19 mill/uL (4.70-6.10); White Blood Cell (WBC) Count 7.7 thou/uL (4.8-10.8)
[2019-05-10 12:53] LABS: Anion Gap 14 mmol/L (10-20); BUN (Urea Nitrogen) 14 mg/dL (8.4-25.7); Calc. Creatinine Clearance 0 mL/min (70-130); Calcium 10.1 mg/dL (7.8-10.44); Carbon Dioxide 27 mmol/L (23-31); Chloride 103 mmol/L (98-107); Estimated GFR-MDRD 85; Glucose 77 mg/dL (80-115); Potassium 4.4 mmol/L (3.5-5.1); Sodium 140 mmol/L (136-145)
--- NOTE | 2019-05-11 08:32 | EKG ---
Test Reason : Blood Pressure : / mmHG Vent. Rate : 097 BPM Atrial Rate : 097 BPM P-R Int : 190 ms QRS Dur : 084 ms QT Int : 346 ms P-R-T Axes : 086 070 072 degrees QTc Int : 439 ms Normal sinus rhythm Cannot rule out Anterior infarct , age undetermined Abnormal ECG When compared with ECG of 21-FEB-2019 15:20, Vent. rate has increased BY [address] no longer elevated in Anterior leads Confirmed by DR. Ricardo ADLER ([id number]) on 05/11/2019 8:31:47 AM Referred By: LOGAN Confirmed By:DR. Ricardo ADLER
== END 2019-05-10 07:44 | disposition home or self-care (01) ==
LOC: LABBT 07:43
PROVIDERS: ATTEND Urology
DX: Z01.818 Encounter for other preprocedural examination (principal); N42.0 Calculus of prostate; N41.8 Other inflammatory diseases of prostate
CPT/HCPCS: 80048; 85027; 85610; 85730; 87086; 93005; 93010

== ENCOUNTER 2019-05-18 09:17 | Day surgery (SDC) | payer OTHER ==
[2019-05-18] MEDS ORDERED: EPHEDRINE 25 MG/5 ML SYRINGE ONE (10:28)
[2019-05-18] MEDS ORDERED: PROPOFOL 200 MG/20 ML VIAL ONE (10:28)
[2019-05-18] MEDS ORDERED: Lidocaine 1% PF 5 ML VIAL ONE (10:28)
[2019-05-18] MEDS ORDERED: PHENYLEPHRINE-NS 100 MCG/ML 10 ML SYRINGE ONE (10:28)
[2019-05-18] MEDS ORDERED: Levofloxacin 500 mg/D5W 100 ml Premix Bag ONE (10:36)
[2019-05-18] MEDS ORDERED: B & O ONE (10:40)
[2019-05-18] MEDS ORDERED: Fentanyl 100 MCG/2 ML VIAL ONE (10:50)
[2019-05-18] MEDS ORDERED: Mag-Al 1200 mg/1200 mg/30 ML UDCUP PO PRN (12:21)
[2019-05-18] MEDS ORDERED: Oxybutynin 5 MG TAB PO PRN (12:21)
[2019-05-18] MEDS ORDERED: diphenhydrAMINE 25 MG CAP PO PRN (12:21)
[2019-05-18] MEDS ORDERED: Bisacodyl 10 MG SUPP PR PRN (12:21)
[2019-05-18] MEDS ORDERED: hydrALAZINE 20 MG/ML VIAL SLOW IVP PRN (12:21)
[2019-05-18] MEDS ORDERED: Ondansetron PF 4 MG/2 ML Vial IVP PRN (12:21)
[2019-05-18] MEDS ORDERED: Phenazopyridine HCl 97.5 MG TABLET PO PRN (12:21)
[2019-05-18] MEDS ORDERED: Acetaminophen 500 MG TAB PO PRN (12:21)
[2019-05-18] MEDS ORDERED: Hyoscyamine Sulfate SL 0.125 mg Tablet SL PRN (12:21)
[2019-05-18] MEDS ORDERED: traMADol HCl 50 MG TAB PO PRN (12:24)
[2019-05-18] MEDS ORDERED: Cyclobenzaprine 10 MG TAB PO PRN (12:28)
[2019-05-18 15:07] VITALS: BMI 25.1
--- NOTE | 2019-05-18 16:50 | OP ---
DATE OF PROCEDURE: 05/18/2019 SERVICE: Urology. PREOPERATIVE DIAGNOSIS: Prostatic stones and calcifications. POSTOPERATIVE DIAGNOSIS: Prostatic stones and calcifications measuring 3 cm. PROCEDURE PERFORMED: Repeat transurethral resection of prostate with cystolitholapaxy. INDICATIONS FOR PROCEDURE: Mr. Medel is a 63-year-old black male with history of CVA and urinary retention, who underwent a TURP. This allowed him to resume spontaneous normal voiding, but the patient began having significant dysuria, urgency, frequency, recurrent urinary tract infections, and hematuria. Repeat cystoscopy demonstrated dense calcifications within the prostate with significant inflammation. I recommended we come back to the operating room and re-resect the prostate along with removal of calcified tissue and break up any prostatic stones. Risks and benefits of the surgery were discussed and he has agreed to proceed forward. DESCRIPTION OF PROCEDURE: After identification of armband and verification of consent, the patient was brought back to the operating room where he underwent general anesthesia with an LMA. He was then placed in dorsal lithotomy position and prepped and draped in the usual sterile fashion. After appropriate time-out, a lubricated 26-Marshallese resectoscope sheath with visual obturator was passed through the urethra into the prostatic fossa, which showed significant calcifications in all directions over 3 cm in size. The visual obturator was switched out for the bipolar prostate resectoscope loop. The stones were knocked off the prostate and the prostate was re-resected until all adenomatous regrowth tissue was removed. There was not a significant amount of tissue; however, the prostatic tissue was extremely dense and required a significant amount of cautery to try and remove the calcified tissue. The vast majority of the calcified tissue was removed, but to take care to avoid capsular penetration and injury to surrounding structures. Some calcified areas were left behind as this was along the prostatic capsule and I did not feel comfortable going beyond this section. Once all the prostate was wide open and all hemostasis was achieved, the verumontanum was identified and found to be intact. The resection was carried up to the verumontanum and not beyond it. The bladder neck was already wide open. Both ureters were identified in orthotopic location. At this point, attempts to remove the stones with the Ziios evacuator were too large, therefore we elected to bring in the stone retrieval basket, used for ERCPs to break up the stones. The resectoscope was removed and a 22-Marshallese rigid cystoscope was introduced per urethra into the bladder. The stone retrieval basket was used to grasp the stones and fractured them by crushing into smaller pieces. Once they were completely broken up, the remaining stone fragments and pieces were evacuated using the cystoscope sheath and the Ziios evacuator. Upon completion, there were no stone fragments remaining other than particulate matter and dust particles, which were too small and adherent to the bladder mucosa to remove. The prostatic fossa was reinspected and found not to be bleeding. All prostate chips were removed. The cystoscope was then removed, leaving the bladder partially filled, and a 22-Marshallese 3-way Garner catheter was placed into the bladder with ease with 30 mL of sterile water in the balloon and CBI initiated. The patient had a B and O suppository placed. He was then taken out of positioning, awakened, taken to PACU for recovery in stable condition. COMPLICATIONS: None. ESTIMATED BLOOD LOSS: minimal. RETAINED TUBES AND DRAINS: A 22-Marshallese 3-way Garner catheter on CBI. SPECIMENS: Prostate stone and prostate tissue. DISPOSITION: The patient will be kept in the hospital overnight. We will plan a void trial in the morning and discharge thereafter. Job ID: [id number] MTDD
[2019-05-18] MEDS: Docusate 100 MG CAP PO SCH (20:51)
[2019-05-18] MEDS: Senokot S 8.6-50 MG TAB PO SCH (20:51)
[2019-05-18] MEDS ORDERED: Atorvastatin Calcium 20 MG TAB PO SCH (21:00)
[2019-05-18] MEDS: levETIRAcetam 500 MG TAB PO SCH (21:00)
[2019-05-19] MEDS: Carvedilol 3.125 MG TAB PO SCH ×2 (01:33→08:48)
[2019-05-19 08:31] LABS: #Basophils 0.1 thou/uL (0.0-0.2); #Eosinphils 0.3 thou/uL (0.0-0.7); #Lymphocytes 1.4 thou/uL (1.20-3.40); #Monocytes 0.3 thou/uL (0.11-0.59); #Neutrophils 5.1 thou/uL (1.40-6.50); %Basophils 0.9 % (0.0-1.0); %Eosinophils 3.8 % (0.0-10.0); %Lymphocytes 19.9 % (21.0-51.0); %Monocytes 4.8 % (0.0-10.0); %Neutrophils 70.7 % (42.0-75.0); Hemoglobin 13.6 g/dL (14.0-18.0); Mean Corpuscular HGB CONC 33.8 g/dL (32.0-36.0); Mean Corpuscular Hemoglobin 34.1 pg (27.0-31.0); Platelet Count 231 thou/uL (130-400); RBC Distribution Width 11.5 % (11.5-14.5); Red Blood Cell (RBC) Count 3.99 mill/uL (4.70-6.10); White Blood Cell (WBC) Count 7.2 thou/uL (4.8-10.8)
[2019-05-19 08:33] LABS: Anion Gap 11 mmol/L (10-20); BUN (Urea Nitrogen) 9 mg/dL (8.4-25.7); Calc. Creatinine Clearance 73 mL/min (70-130); Calcium 9.5 mg/dL (7.8-10.44); Carbon Dioxide 28 mmol/L (23-31); Chloride 100 mmol/L (98-107); Estimated GFR-MDRD 79; Glucose 96 mg/dL (80-115); Potassium 4.3 mmol/L (3.5-5.1); Sodium 135 mmol/L (136-145)
[2019-05-19] MEDS: levETIRAcetam 500 MG TAB PO SCH (08:47)
[2019-05-19] MEDS: Docusate 100 MG CAP PO SCH (08:48)
[2019-05-19] MEDS: Senokot S 8.6-50 MG TAB PO SCH (08:48)
[2019-05-19] MEDS ORDERED: Polyethylene Glycol 3350 17 GM Packet PO SCH (09:00)
[2019-05-19 16:13] VITALS: BP 106/76; TEMP 98.2
--- NOTE | 2019-05-19 17:14 | PRG ---
DATE OF SERVICE: 05/19/2019 SUBJECTIVE: The patient states he is feeling fine. His testicular pain is decreased. He has no complaints today. Denies any chest pain or shortness of breath. OBJECTIVE: VITAL SIGNS: Temperature 98.2, pulse 77, respirations 16, blood pressure 116/79, and saturations 96% on room air. GENERAL: No apparent distress. CARDIOVASCULAR: Regular rate and rhythm. ABDOMEN: Soft, nontender, and nondistended. : Garner catheter in place with clear yellow urine with CBI off. EXTREMITIES: No edema. LABORATORY EVALUATION: The full set of labs are in the [facility] system, which I have reviewed. Of note, the patient's white count is 7.2 with a creatinine of 1.14. ASSESSMENT AND PLAN: This is a 63-year-old black male, status post repeat transurethral resection of the prostate, postop day 1. His urine looks very good. We will plan a void trial, so long as he is able to urinate with relatively small amounts of bloody urine, he can be discharged home and I will see him on an outpatient basis. We will plan for steroids as an outpatient to try and minimize inflammation and prevent stone recurrence. Job ID: [id number] MTDD
--- NOTE | 2019-05-20 00:09 | DIS ---
DATE OF ADMISSION: 05/18/2019 DATE OF DISCHARGE: 05/19/2019 ADMITTING DIAGNOSIS: BPH with lower urinary tract symptoms and prostatic calcifications. DISCHARGE DIAGNOSIS: BPH with lower urinary tract symptoms and prostatic calcifications. PROCEDURE PERFORMED: Repeat transurethral resection of prostate with cystolitholapaxy greater than 2.5 cm. BRIEF HISTORY: Mr. Medel is a 63-year-old black male with history of CVA and BPH with urinary retention. He underwent a TURP in the past and had recurrent symptoms with cystoscopy demonstrating large prostatic stones and mild regrowth. We elected to take him to the operating room to consider repeat TURP and break up the prostatic stones. The full H and P can be found in the scanned portion of the [facility] system. HOSPITAL COURSE: After surgery (please see operative note for details) the patient was taken to the hospital and kept in observation for CBI. He did very well overnight without any problems. His CBI was stopped in the morning with his urine be completely yellow. His catheter was removed. The patient was able to void, although he did have accidents in the bed. His urine was not very bloody, so he was discharged home without any further problems. DISPOSITION: Discharge to home. DISCHARGE CONDITION: Good. DISCHARGE MEDICATIONS: Please see medication reconciliation. DISCHARGE INSTRUCTIONS: Discharge instructions were gone over the patient. I will see him back into 1 to 2 weeks for a postop check. Job ID: [id number]
== END 2019-05-19 18:35 ==
LOC: SDC 09:17 → SJJU 12:26 → SDC 05-19 18:35
PROVIDERS: ATTEND Urology
PROC: 0TCB8ZZ Extirpation of Matter from Bladder, Via Natural or Artificial Opening Endoscopic (ICD-10-PCS; principal; 2019-05-18)
PROC: 0VT08ZZ Resection of Prostate, Via Natural or Artificial Opening Endoscopic (ICD-10-PCS; principal; 2019-05-18)
DX: N40.1 Benign prostatic hyperplasia with lower urinary tract symptoms (principal); N42.0 Calculus of prostate; R33.8 Other retention of urine; R39.15 Urgency of urination; R35.0 Frequency of micturition; N39.0 Urinary tract infection, site not specified; E78.5 Hyperlipidemia, unspecified; Z79.899 Other long term (current) drug therapy; Z79.82 Long term (current) use of aspirin; Z86.73 Personal history of transient ischemic attack (TIA), and cerebral infarction without residual deficits; Z98.890 Other specified postprocedural states; Z87.891 Personal history of nicotine dependence
CPT/HCPCS: 36415; 80048; 85025; 88305; J1956; J2001; J2704; J3010

== ENCOUNTER 2020-04-16 15:13 | Emergency (ER) | payer OTHER ==
--- NOTE | 2020-04-16 16:06 | RAD ---
RADIOGRAPH CHEST 1 VIEW: DATE: 04/16/2020 HISTORY: 64-year-old male with persistent generalized weakness and anorexia after prostatectomy 3 months ago. 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 There are no airspace densities, pulmonary edema, pneumothorax, or cardiomegaly. The lateral costophr enic angles are sharp. 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 2) No acute cardiopulmonary findings.
[2020-04-16 16:19] LABS: #Eosinphils 0.1 thou/uL (0.0-0.7); #Monocytes 0.5 thou/uL (0.11-0.59); #Neutrophils 4.5 thou/uL (1.40-6.50); %Basophils 0.6 % (0.0-1.0); %Eosinophils 1.5 % (0.0-10.0); %Lymphocytes 16.8 % (21.0-51.0); %Monocytes 7.6 % (0.0-10.0); %Neutrophils 73.5 % (42.0-75.0); Hemoglobin 11.2 g/dL (14.0-18.0); Mean Corpuscular Hemoglobin 31.9 pg (27.0-31.0); Mean Corpuscular Volume 96.7 fL (78.0-98.0); Mean Platelet Volume 7.3 fL (7.4-10.4); Platelet Count 349 thou/uL (130-400); RBC Distribution Width 13.2 % (11.5-14.5); Red Blood Cell (RBC) Count 3.52 mill/uL (4.70-6.10); White Blood Cell (WBC) Count 6.1 thou/uL (4.8-10.8)
[2020-04-16] MEDS ORDERED: traMADol HCl 50 MG TAB ONE (16:19)
[2020-04-16 16:38] LABS: ALT (SGPT) 16 U/L (8-55); AST (SGOT) 22 U/L (5-34); Albumin 3.3 g/dL (3.4-4.8); Alkaline Phosphatase 172 U/L (40-110); Anion Gap 16 mmol/L (10-20); BUN (Urea Nitrogen) 14 mg/dL (8.4-25.7); Bilirubin, Total 1.2 mg/dL (0.2-1.2); CK (CPK) 36 U/L (30-200); Calc. Creatinine Clearance 0 mL/min (70-130); Calcium 11.1 mg/dL (7.8-10.44); Carbon Dioxide 30 mmol/L (23-31); Chloride 97 mmol/L (98-107); Globulin 3.7 g/dL (2.4-3.5); Glucose 99 mg/dL (80-115); Potassium 4.2 mmol/L (3.5-5.1); Sodium 139 mmol/L (136-145)
--- NOTE | 2020-04-16 16:58 | ULT ---
EXAM: Testicular/scrotal ultrasound HISTORY: Left testicular pain COMPARISON: None TECHNIQUE: Multiplanar grayscale and color Doppler images were obtained in a testicular/scrotal ultra sound. Spectral analysis of the Doppler waveforms of the testicles were performed. FINDINGS: Right testicle: Normal in echogenicity. An anechoic cyst is seen in the right testicle measuring 9 mm in size. Normal internal flow. Left testicle: Normal in echogenicity. No focal mass. Normal internal flow. Right epididymis. No epididymal cyst. Normal internal flow. Left epididymis. No epididymal cyst. Normal internal flow. A small left hydrocele is present. No varicocele is present. IMPRESSION: 1. Right testicular cyst 2. Small left hydrocele
[2020-04-16 17:53] LABS: Bilirubin Negative (Negative); Blood, Urine 3+ (Negative); Clarity Extra Turbid (Clear); Glucose, Urine (Dipstick) Normal (Negative); Ketone, Urine Negative (Negative); Leukocyte 500 Leu/uL (Negative); Nitrite Negative (Negative); Protein, Urine (Dipstick) 70 mg/dL (Neg-Trace); Specific Gravity, Urine 1.016 (1.002-1.036); Squamous Epithelial None Seen HPF (0-3); Urobilinogen 6 mg/dL (Less than 2); pH, Urine 7.5 (5.0-9.0)
[2020-04-16 18:00] LABS: Bacteria/HPF 2+ HPF (None Seen)
[2020-04-16 18:02] LABS: RBC/HPF 21-50 HPF (0-3); WBC/HPF 21-50 HPF (0-3)
[2020-04-16] MEDS ORDERED: cefTRIAXone\\ROCEPHIN 1 GM VIAL ONE (18:21)
== END 2020-04-16 19:32 ==
LOC: ERS 15:13
DX: N30.00 Acute cystitis without hematuria (principal); I10 Essential (primary) hypertension; E78.5 Hyperlipidemia, unspecified; Z79.899 Other long term (current) drug therapy
CPT/HCPCS: 36415; 71045; 76870; 80053; 81003; 81015; 82550; 83735; 85025; 87040; 87086; 93005; 93976; 96365; J0696

== ENCOUNTER 2020-04-29 10:58 | Emergency (ER) | payer OTHER ==
[2020-04-29 13:04] LABS: #Eosinphils 0.1 thou/uL (0.0-0.7); #Monocytes 0.5 thou/uL (0.11-0.59); #Neutrophils 6.8 thou/uL (1.40-6.50); %Lymphocytes 12.3 % (21.0-51.0); %Monocytes 5.9 % (0.0-10.0); %Neutrophils 80.9 % (42.0-75.0); Hemoglobin 10.8 g/dL (14.0-18.0); Mean Corpuscular HGB CONC 32.6 g/dL (32.0-36.0); Mean Corpuscular Hemoglobin 31.6 pg (27.0-31.0); Mean Corpuscular Volume 97.1 fL (78.0-98.0); Mean Platelet Volume 6.9 fL (7.4-10.4); Platelet Count 349 thou/uL (130-400); RBC Distribution Width 13.2 % (11.5-14.5); Red Blood Cell (RBC) Count 3.43 mill/uL (4.70-6.10); White Blood Cell (WBC) Count 8.4 thou/uL (4.8-10.8)
[2020-04-29 13:19] LABS: Bacteria/HPF None Seen HPF (None Seen); Bilirubin Negative (Negative); Blood, Urine Negative (Negative); Clarity Turbid (Clear); Glucose, Urine (Dipstick) Normal (Negative); Ketone, Urine Negative (Negative); Leukocyte 250 Leu/uL (Negative); Nitrite Negative (Negative); Protein, Urine (Dipstick) 20 mg/dL (Neg-Trace); RBC/HPF 0-3 HPF (0-3); Specific Gravity, Urine 1.018 (1.002-1.036); Squamous Epithelial 0-3 HPF (0-3); WBC/HPF 21-50 HPF (0-3)
[2020-04-29 13:34] LABS: Sperm/HPF Rare HPF (None Seen)
[2020-04-29 13:46] LABS: ALT (SGPT) 8 U/L (8-55); AST (SGOT) 17 U/L (5-34); Albumin 3.1 g/dL (3.4-4.8); Alkaline Phosphatase 161 U/L (40-110); BUN (Urea Nitrogen) 13 mg/dL (8.4-25.7); Bilirubin, Total 1.2 mg/dL (0.2-1.2); Calc. Creatinine Clearance 0 mL/min (70-130); Carbon Dioxide 36 mmol/L (23-31); Chloride 98 mmol/L (98-107); Globulin 3.1 g/dL (2.4-3.5); Glucose 117 mg/dL (80-115); Potassium 3.7 mmol/L (3.5-5.1); Protein, Total 6.2 g/dL (5.8-8.1); Sodium 141 mmol/L (136-145)
[2020-04-29 13:57] LABS: Calcium 12.9 mg/dL (7.8-10.44)
[2020-04-29] MEDS ORDERED: cefTRIAXone\\ROCEPHIN 2 GM VIAL ONE (14:10)
[2020-04-29 15:16] LABS: Anion Gap 11 mmol/L (10-20)
== END 2020-04-29 14:50 | disposition home or self-care (01) ==
LOC: ERS 10:58
DX: N30.00 Acute cystitis without hematuria (principal); N50.89 Other specified disorders of the male genital organs; I10 Essential (primary) hypertension; Z86.73 Personal history of transient ischemic attack (TIA), and cerebral infarction without residual deficits; N40.0 Benign prostatic hyperplasia without lower urinary tract symptoms; E78.5 Hyperlipidemia, unspecified; F17.210 Nicotine dependence, cigarettes, uncomplicated; Z79.82 Long term (current) use of aspirin; Z79.899 Other long term (current) drug therapy
CPT/HCPCS: 80053; 81003; 81015; 85025; 93005; 96365; J0696